=== PATIENT | female | born 1940 | race Caucasian/White ===

== ENCOUNTER 2019-08-08 09:52 | Emergency (ER) | payer MEDICARE, OTHER, SELFPAY ==
[2019-08-08 09:56] VITALS: BP 118/66; PULSE 96; RESP 18; TEMP 36.7; O2SAT 94; BMI 34.4
[2019-08-08 10:09] VITALS: O2SAT 98
[2019-08-08 10:10] LABS: Basophils % 0.2 %; Eosinophils # 0.1 10^3/uL (0.0-0.8); Eosinophils % 1.3 %; Hematocrit 36.2 % (37.0-47.0); Hemoglobin 10.8 g/dL (11.5-15.3); Lymphocytes # 1.6 10^3/uL (0.8-4.8); Lymphocytes % 16.7 %; Mean Corpuscular HGB Conc 29.8 g/dL (30.0-36.0); Mean Corpuscular Hemoglobin 27.1 pg (28.0-34.0); Mean Corpuscular Volume 90.7 fL (81-99); Mean Platelet Volume 11.7 fL (7.4-10.4); Monocytes # 0.8 10^3/uL (0.2-0.9); Monocytes % 8.4 %; Neutrophils % 73.1 %; Nucleated Red Blood Cells % 0 %; Platelet Count 207 10^3/cmm (130-400); Red Blood Count 3.99 10^6/uL (4.1-5.3); Red Cell Distribution Width 13.4 % (12.1-15.1); White Blood Count 9.6 10^3/uL (4.0-10.0)
--- NOTE | 2019-08-08 10:14 | ED_ITS ---
Entered by Francisca Tan, acting as scribe for Emilia Perera PA Aug 08, 2019 09:52 HPI - General Adult General: Chief complaint: General Medical Stated complaint: Abd pain Time Seen by Provider: 08/08/19 10:15 Source: patient and family Mode of arrival: ambulatory Limitations: no limitations History of Present Illness: HPI narrative: Patient is an 78-year-old female who presents to ED today along with family for complaints of vomiting since Tuesday. They were seen in urgent care today and apparently had a low blood pressure of 80s?90s/ over 40s-60s. Family states she also had some abdominal pain with palpation so they sent her to ED for further evaluation. Family states patient began vomiting on Tuesday and had about 2-3 episodes total throughout the day. Family states there was no vomiting on Tuesday but began again on Tuesday and again had 2-3 episodes. Family has been treating with Zofran. Vomit has been nonbloody. Patient reports some looser stools but not diarrhea-stools have been nonbloody, not black or tarry. Patient does not complain of abdominal pain on her own but does state it was mildly tender with palpation by the provider at urgent care. She has not been running fevers. Patient does not complain of lightheadedness, dizziness, presyncopal. She does complain of feeling tired and fatigued. Onset (ago): day(s) Relieving factors: other (zofran) Exacerbating factors: eating Associated symptoms: Reports nausea and vomiting; Deny chest pain, headache(s), rash, palpitations or syncope Review of Systems Const: Reports: change in appetite (decreased) and fatigue; Denies: fever, chills, body aches or change in weight Eyes: Denies: change in vision or blurry vision ENMT: Denies: throat pain, enlarged tonsils or painful swallowing Card: Reports: shortness of breath on exertion (chronic); Denies: chest pain, palpitations, irregular heart rhythm, edema, swelling of feet/ankles, lightheadedness, syncope, pre-syncope, shortness of breath when lying down or leg pain with exertion Resp: Denies: productive cough, coughing up blood or chest congestion GI: Reports: nausea and vomiting; Denies: abdominal pain (only with palpation; no pain at rest), vomiting blood, coffee grounds in vomit, difficulty swallowing, constipation, bloating, excessive passing of gas, painful bowel movements, change in stool character, b lood in stool, black tarry stool, mucus in stool, white/light colored stool or fatty stool : Denies: flank pain, difficulty urinating, painful urination, urinary frequency, urinary urgency or urinary hesitancy Musc: Denies: neck pain, back pain, extremity pain or joint pain Skin/Breast: Denies: rash or itching Neuro: Denies: headache, numbness in extremities, weakness in extremities, changes in sensation, lack of coordination, difficulty walking, frequent falls or dizziness PFSH ED PFSH: Statuses (acute, chronic, etc) shown below reflect problem list status as previously entered and may not be historically accurate Social History Smoking and tobacco status: never smoked Physical Exam Const: COMMON NORMALS: no apparent distress, oriented x3, no limitations, alert and well nourished HENMT: COMMON NORMALS: normocephalic and head/scalp atraumatic HEAD & SCALP: normocephalic and atraumatic Eye: COMMON NORMALS: PERRL and EOMs intact bilaterally PUPIL: Yes PERRL Neck/C-Spine: COMMON NORMALS: full ROM, no lymphadenopathy, supple and no meningeal signs Chest: COMMONS NORMALS: inspection of chest normal Resp: COMMON NORMALS: normal respiratory effort and clear to auscultation bilaterally AUSCULTATION: clear to auscultation bilaterally Cardio: COMMON NORMALS: regular rate and regular rhythm RATE: regular rate RHYTHM: regular rhythm GI: COMMON NORMALS: normal to inspection, nondistended, normoactive bowel sounds, soft to palpation, no hepatosplenomegaly and no masses PALPATION: Yes soft, Yes tender (mild tenderness to epigastrim and LLQ) and Yes no hepatosplenomegaly : COMMON NORMALS: Yes no CVA tenderness BLADDER/KIDNEY EXAM: Yes no CVA tenderness Back/Pelvis: COMMON NORMALS: no CVA tenderness and thoracic and lumbar spine normal to inspection Extremity: COMMON NORMALS: normal to inspection Neuro: COMMON NORMALS: oriented x3 SENSORIUM/ORIENTATION: Yes alert MENINGEAL SIGNS: Yes no meningeal signs Skin: COMMON NORMALS: no rashes or lesions noted GENERAL SKIN EXAM: no rashes or lesions noted Course Vital Signs: Vital signs: Vital Signs Temperature 98.0 F 08/08/19 09:56 Pulse Rate 72 08/08/19 12:27 Respiratory Rate 16 08/08/19 12:27 Blood Pressure 126/71 08/08/19 12:27 Pulse Oximetry 95 08/08/19 12:27 MDM - General Adult MDM Narrative: Medical decision making narrative: Patient clinically appears well. Her vitals have been stable throughout her stay. Blood pressure has been 110-120s/60-70s which is about normal for her. She is not tachycardic or febrile. Her labs are fairly unremarkable. Mildly elevated BUN/Cr of 25/1.6. She was given a liter of fluids here and will be encouraged to continue to push fluids at home. Recommend PCP follow-up in 48 hours for reevaluation. Return to ED precautions given. She has had no episodes of vomiting or diarrhea while here. Lab Data: Labs: Lab Results 08/08/19 08/08/19 08/08/19 Range/Units 10:04 10:04 10:20 WBC 9.6 (4.0-10.0) 10^3/ uL RBC 3.99 L (4.1-5.3) 10^6/u L Hgb 10.8 L (11.5-15.3) g/dL Hct 36.2 L (37.0-47.0) % MCV 90.7 (81-99) fL MCH 27.1 L (28.0-34.0) pg MCHC 29.8 L (30.0-36.0) g/dL RDW 13.4 (12.1-15.1) % Plt Count 207 (130-400) 10^3/c mm MPV 11.7 H (7.4-10.4) fL Neut % (Auto) 73.1 % Lymph % (Auto) 16.7 % [place] % (Auto) 8.4 % Eos % (Auto) 1.3 % Baso % (Auto) 0.2 % Neut # (Auto) 7.0 (1.8-7.7) 10^3/u L Lymph # (Auto) 1.6 (0.8-4.8) 10^3/u L [place] # (Auto) 0.8 (0.2-0.9) 10^3/u L Eos # (Auto) 0.1 (0.0-0.8) 10^3/u L Baso # (Auto) 0.0 (0.0-0.1) 10^3/u L Nucleated RBC % (a uto) 0 % Nucleated RBCs # 0.0 /100WBC Sodium 136 (136-145) mmol/L Potassium 4.2 (3.5-5.1) mmol/L Chloride 101 (98-107) mmol/L Carbon Dioxide 22 (22-29) mmol/L Anion Gap 17.2 (5-19) BUN 25 H (8-23) mg/dL Creatinine 1.6 H (0.5-0.9) mg/dL Glucose 103 (65-115) mg/dL Calcium 9.3 (8.5-10.5) mg/dL Total Bilirubin 0.2 (0.15-1.2) mg/dL AST 20 (0-32) U/L ALT 12 (0-33) U/L Alkaline Phosphata se 98 (35-105) IU/L Total Protein 7.8 (6.6-8.7) g/dL Albumin 3.8 (3.5-5.2) g/dL Globulin 4.0 (1.3-4.6) g/dL Lipase 54 (13-60) U/L Urine Color Yellow (Yellow) Urine Appearance Clear (CLEAR) Urine pH 5.0 (5-7) Ur Specific Gravit y 1.025 (1.005-1.030) Urine Protein Trace (Negative) Urine Glucose (UA) Norm (Normal) Urine Ketones Negative (Negative) Urine Occult Blood Neg (Negative) Urine Nitrate Negative (Negative) Urine Bilirubin 1+ H (NEGATIVE) Urine Urobilinogen 1 H (Negative) mg/dL Ur Leukocyte Kallie ase Negative (Negative) Urine RBC None (0-2) /hpf Urine WBC 0-4 H (0-5) /hpf Ur Squamous Epith Cells 0-4 H (0-5) Urine Bacteria 1+ H (NONE) Urine Mucus 2+ Influenza Type A A g (Negative) POC Influenza B Ag (Negative) 08/08/19 Range/Units 10:50 WBC (4.0-10.0) 10^3/ uL RBC (4.1-5.3) 10^6/u L Hgb (11.5-15.3) g/dL Hct (37.0-47.0) % MCV (81-99) fL MCH (28.0-34.0) pg MCHC (30.0-36.0) g/dL RDW (12.1-15.1) % Plt Count (130-400) 10^3/c mm MPV (7.4-10.4) fL Neut % (Auto) % Lymph % (Auto) % [place] % (Auto) % Eos % (Auto) % Baso % (Auto) % Neut # (Auto) (1.8-7.7) 10^3/u L Lymph # (Auto) (0.8-4.8) 10^3/u L [place] # (Auto) (0.2-0.9) 10^3/u L Eos # (Auto) (0.0-0.8) 10^3/u L Baso # (Auto) (0.0-0.1) 10^3/u L Nucleated RBC % (a uto) % Nucleated RBCs # /100WBC Sodium (136-145) mmol/L Potassium (3.5-5.1) mmol/L Chloride (98-107) mmol/L Carbon Dioxide (22-29) mmol/L Anion Gap (5-19) BUN (8-23) mg/dL Creatinine (0.5-0.9) mg/dL Glucose (65-115) mg/dL Calcium (8.5-10.5) mg/dL Total Bilirubin (0.15-1.2) mg/dL AST (0-32) U/L ALT (0-33) U/L Alkaline Phosphata se (35-105) IU/L Total Protein (6.6-8.7) g/dL Albumin (3.5-5.2) g/dL Globulin (1.3-4.6) g/dL Lipase (13-60) U/L Urine Color (Yellow) Urine Appearance (CLEAR) Urine pH (5-7) Ur Specific Gravit y (1.005-1.030) Urine Protein (Negative) Urine Glucose (UA) (Normal) Urine Ketones (Negative) Urine Occult Blood (Negative) Urine Nitrate (Negative) Urine Bilirubin (NEGATIVE) Urine Urobilinogen (Negative) mg/dL Ur Leukocyte Kallie ase (Negative) Urine RBC (0-2) /hpf Urine WBC (0-5) /hpf Ur Squamous Epith Cells (0-5) Urine Bacteria (NONE) Urine Mucus Influenza Type A A g Negative (Negative) POC Influenza B Ag Negative (Negative) Discharge Plan Discharge Patient Disposition: Home, Self-Care Clinical Impression: Nausea & vomiting Qualifiers: Vomiting type: unspecified Vomiting Intractability: non-intractable Qualified Code(s): R11.2 - Nausea with vomiting, unspecified Condition: Stable Prescriptions: New Zofran 4 mg tablet 4 mg PO Q6H PRN (Reason: nausea and vomiting) Qty: 14 RF: 0 Discharge Orders: Discharge Order (Routine); Ordered 08/08/19 Ordered By: Emilia Perera Referrals: Alba Dueñas MD [Primary Care Provider] - Discharge Diet: Advance as tolerated Discharge Activity: Increase activity as tolerated Patient Instructions: Dehydration - Adult, Acute Nausea and Vomiting (ED) Activity Restrictions/Additional Instructions: Please follow-up with Dr. Dueñas in 48 hours for continued symptoms. Return to the emergency department for repetitive episodes of vomiting or diarrhea, abdominal pain, fevers greater than 100.4, or any other concerns she may have. 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
[2019-08-08 10:23] LABS: Alanine Aminotransferase 12 U/L (0-33); Albumin Level 3.8 g/dL (3.5-5.2); Alkaline Phosphatase 98 IU/L (35-105); Anion Gap 17.2 (5-19); Aspartate Amino Transferase 20 U/L (0-32); Blood Urea Nitrogen 25 mg/dL (8-23); Calcium 9.3 mg/dL (8.5-10.5); Carbon Dioxide 22 mmol/L (22-29); Chloride 101 mmol/L (98-107); Glucose 103 mg/dL (65-115); Lipase 54 U/L (13-60); Potassium 4.2 mmol/L (3.5-5.1); Sodium 136 mmol/L (136-145); Total Bilirubin 0.2 mg/dL (0.15-1.2); Total Protein 7.8 g/dL (6.6-8.7)
[2019-08-08] MEDS: sodium chloride 0.9% 1,000 ML 999 ML IV (10:47)
[2019-08-08 10:49] LABS: Add Urine Microscopic? YES; Bilirubin Urine 1+ (NEGATIVE); Blood Urine Neg (Negative); Glucose Urine UA Norm (Normal); Ketones Urine Negative (Negative); Leukocyte Esterase Urine Negative (Negative); Nitrate Urine Negative (Negative); Protein Urine Trace (Negative); Specific Gravity, Urine 1.025 (1.005-1.030); Urine Appearance Clear (CLEAR); Urine Color Yellow (Yellow); Urobilinogen Urine 1 mg/dL (Negative)
[2019-08-08 10:55] LABS: Bacteria Urine 1+; Mucus Urine 2+; Squamous Epithelial Cell Urine 0-4 (0-5); WBC Urine 0-4 /hpf (0-5)
[2019-08-08 10:56] LABS: Add Urine Culture? No
[2019-08-08 11:16] LABS: Influenza A by IFA Negative (Negative); Influenza B by IFA Negative (Negative)
[2019-08-08 12:27] VITALS: BP 126/71; PULSE 72; RESP 16; O2SAT 95
== END 2019-08-08 12:28 | disposition home or self-care (01) ==
PROVIDERS: Emergency Provider Physician Assistant; Family Provider Family Medicine; PCP Family Medicine
DX: R11.2 Nausea with vomiting, unspecified (principal)
CPT/HCPCS: 36415; 80053; 81001; 83690; 85025; 87804; 96360; 99283; J7030

== ENCOUNTER → 2019-11-14 08:25 | Outpatient (BNVA) | payer MEDICARE, OTHER, SELFPAY | PROVIDERS: Family Provider Family Medicine; PCP Family Medicine; Visit Provider Specialist | DX: G30.9 Alzheimer's disease, unspecified (principal); F02.80 Dementia in other diseases classified elsewhere, unspecified severity, without behavioral disturbance, psychotic disturbance, mood disturbance, and anxiety | CPT/HCPCS: 99213 ==

== ENCOUNTER 2020-06-23 12:59 | Emergency (ER) | payer MEDICARE, OTHER, SELFPAY ==
[2020-06-23] VITALS (7 sets, daily range): BP systolic 95–126; BP diastolic 60–74; PULSE 85–99; RESP 16–18; TEMP 36.4; O2SAT 93–99; BMI 51.2
--- NOTE | 2020-06-23 14:13 | XR_ITS ---
WS: [id number] PORTABLE CHEST HISTORY: dyspnea COMPARISON: 03/07/2019 Hyperexpanded lungs with prior granulomatous disease. No pneumonia. No pleural effusion or pneumothor ax. Cardiac size: Mildly enlarged cardiac silhouette. Mediastinum/Aorta: Mild atherosclerosis aorta. No osseous abnormality seen. XR/XR chest 1V portable [id number] IMPRESSION: Prior granulomatous disease and mild cardiomegaly. No pneumonia.
[2020-06-23 16:38] LABS: Basophils % 0.4 %; Eosinophils % 0.1 %; Hematocrit 36.6 % (37.0-47.0); Hemoglobin 11.5 g/dL (11.5-15.3); Lymphocytes # 1.2 10^3/uL (0.8-4.8); Mean Corpuscular HGB Conc 31.4 g/dL (30.0-36.0); Mean Corpuscular Hemoglobin 27.2 pg (28.0-34.0); Mean Corpuscular Volume 86.5 fL (81-99); Monocytes % 8.9 %; Neutrophils # 8.56 10^3/uL (1.8-7.7); Nucleated Red Blood Cells % 0 %; Platelet Count 198 10^3/cmm (130-400); Red Blood Count 4.23 10^6/uL (4.1-5.3); Red Cell Distribution Width 14.2 % (12.1-15.1); White Blood Count 10.8 10^3/uL (4.0-10.0)
[2020-06-23 16:56] LABS: D Dimer 1.97 ug/mIFEU (0-0.59)
[2020-06-23 17:12] LABS: Alanine Aminotransferase 7 U/L (0-33); Alkaline Phosphatase 78 IU/L (35-105); Anion Gap 18.8 (5-19); Aspartate Amino Transferase 13 U/L (0-32); Blood Urea Nitrogen 19 mg/dL (8-23); C Reactive Protein 160.4 mg/L (0.0-4.9); Calcium 9.6 mg/dL (8.5-10.5); Carbon Dioxide 22 mmol/L (22-29); Chloride 96 mmol/L (98-107); Globulin 3.8 g/dL (1.3-4.6); Glucose 112 mg/dL (65-115); Osmolality Calculated 279 mOsm/kg (285-295); Potassium 3.8 mmol/L (3.5-5.1); Sodium 133 mmol/L (136-145); Total Bilirubin 0.2 mg/dL (0.15-1.2); Total Protein 7.8 g/dL (6.6-8.7)
[2020-06-23 17:13] LABS: Lactic Sepsis W/Reflex 1.3 mmol/L (0.5-2.2)
--- NOTE | 2020-06-23 17:41 | ED_ITS ---
Documented by User: Gino Moore DO 06/25/20 13:28 HPI - General Adult General: Chief complaint: General Medical Stated complaint: FEVER, COUGHING, SOB Time Seen by Provider: 06/23/20 16:13 History of Present Illness: HPI narrative: 79-year-old female presents emergency room complaining of cough and shortness of breath. She was tested last week with a rapid antigen test and then again today both at an outlying clinic both of which were reportedly negative however she continues to have symptoms. She has not had any fever sweats or chills cough is been minimally productive. Her daughter is in the room and gives most of her history she has some dementia and is not consistent with her history. She denies chest or abdominal pain dysuria urgency or frequency. Onset (ago): day(s) Location: chest Severity: mild Relieving factors: rest Associated symptoms: Reports confusion, cough, dyspnea, malaise and weakness; Deny chest pain, diaphoresis, decreased appetite, fevers/chills, headache(s), nausea, rash, palpitations, seizures, short of breath, syncope or vomiting Review of Systems Const: Reports: malaise; Denies: diaphoresis ENMT: Denies: throat pain, nasal discharge or nasal congestion Card: Denies: chest pain, palpitations or syncope Resp: Reports: dyspnea GI: Denies: nausea or vomiting : Denies: flank pain, difficulty voiding, dysuria, urinary frequency or urinary urgency Skin/Breast: Denies: rash or pruritus Neuro: Reports: confusion; Denies: headache(s) [facility] ED PFSH: Medical History CHF (congestive heart failure) Ischemic cardiomyopathy NEERAJ (obstructive sleep apnea) Sleep apnea Family History Father CAD (coronary artery disease) Myocardial infarction Mother CAD (coronary artery disease) Myocardial infarction Sister CAD (coronary artery disease) Myocardial infarction Brother CAD (coronary artery disease) Myocardial infarction Daughter Cancer COLON Social History Smoking and tobacco status: never smoked Marital status: / Physical Exam Const: COMMON NORMALS: no acute distress GENERAL APPEARANCE: cooperative and comfortable ORIENTATION/CONSCIOUSNESS: Yes awake, Yes oriented to person, Yes oriented to place and Yes oriented to time HENMT: COMMON NORMALS: normocephalic and atraumatic HEAD & SCALP: normocephalic and atraumatic Neck/C-Spine: COMMON NORMALS: no JVD Resp: COMMON NORMALS: normal respiratory effort, No retractions, No use of accessory muscles and clear to auscultation bilaterally AUSCULTATION: clear to auscultation bilaterally Cardio: COMMON NORMALS: no JVD, regular rate, regular rhythm and No murmurs present (Cardio) RATE: regular rate RHYTHM: regular rhythm GI: COMMON NORMALS: Soft to palpation and No hepatosplenomegaly present AUSCULTATION: Yes normoactive bowel sounds PALPATION: Yes Soft to palpation, No Tenderness to palpation present (GI), No Guarding due to palpation present (GI) and Yes No hepatosplenomegaly present Extremity: COMMON NORMALS: normal to inspection, capillary refill normal, no clubbing, cyanosis or edema, no calf tenderness and no pedal edema Neuro: SENSORIUM/ORIENTATION: Yes oriented to person, Yes oriented to place and Yes oriented to time Skin: COMMON NORMALS: no rashes or lesions noted GENERAL SKIN EXAM: no rashes or lesions noted Course Vital Signs: Vital signs: Vital Signs Temperature 97.6 F 06/23/20 13:15 Pulse Rate 99 06/23/20 20:44 Respiratory Rate 18 06/23/20 20:44 Blood Pressure 115/60 06/23/20 20:44 Pulse Oximetry 99 06/23/20 20:44 MDM - General Adult MDM Narrative: Medical decision making narrative: Care turned over to Dr. Leos at change of shift see his notes for final diagnosis and disposition Lab Data: Attestation: I reviewed the patient's lab results. Labs: Lab Results 06/23/20 06/23/20 06/23/20 Range/Units 16:21 16:21 16:21 WBC 10.8 H (4.0-10.0) 10^3/ uL RBC 4.23 (4.1-5.3) 10^6/u L Hgb 11.5 (11.5-15.3) g/dL Hct 36.6 L (37.0-47.0) % MCV 86.5 (81-99) fL MCH 27.2 L (28.0-34.0) pg MCHC 31.4 (30.0-36.0) g/dL RDW 14.2 (12.1-15.1) % Plt Count 198 (130-400) 10^3/c mm MPV 11.0 H (7.4-10.4) fL Neut % (Auto) 79.0 % Lymph % (Auto) 11.0 % Patrick % (Auto) 8.9 % Eos % (Auto) 0.1 % Baso % (Auto) 0.4 % Neut # (Auto) 8.56 H (1.8-7.7) 10^3/u L Lymph # (Auto) 1.2 (0.8-4.8) 10^3/u L Patrick # (Auto) 1.0 H (0.2-0.9) 10^3/u L Eos # (Auto) 0.0 (0.0-0.8) 10^3/u L Baso # (Auto) 0.0 (0.0-0.1) 10^3/u L Nucleated RBC % (a uto) 0 % Nucleated RBCs # 0.0 /100WBC D-Dimer (0-0.59) ug/mIFE U Sodium 133 L (136-145) mmol/L Potassium 3.8 (3.5-5.1) mmol/L Chloride 96 L (98-107) mmol/L Carbon Dioxide 22 (22-29) mmol/L Anion Gap 18.8 (5-19) BUN 19 (8-23) mg/dL Creatinine 1.9 H (0.5-0.9) mg/dL GFR Calculation Not Reportable Glucose 112 (65-115) mg/dL Calculated Osmolal ity 279 L (285-295) mOsm/k g Lactic Acid 1.3 (0.5-2.2) mmol/L Calcium 9.6 (8.5-10.5) mg/dL Total Bilirubin 0.2 (0.15-1.2) mg/dL AST 13 (0-32) U/L ALT 7 (0-33) U/L Alkaline Phosphata se 78 (35-105) IU/L C-Reactive Protein 160.4 H (0.0-4.9) mg/L Total Protein 7.8 (6.6-8.7) g/dL Albumin 4.0 (3.5-5.2) g/dL Globulin 3.8 (1.3-4.6) g/dL Urine Color (Yellow) Urine Appearance (CLEAR) Urine pH (5-7) Ur Specific Gravit y (1.005-1.030) Urine Protein (Negative) Urine Glucose (UA) (Normal) Urine Ketones (Negative) Urine Blood (Negative) Urine Nitrate (Negative) Urine Bilirubin (Negative) Urine Urobilinogen (Negative) mg/dL Ur Leukocyte Kallie ase (Negative) Urine RBC (0-2) /hpf Urine WBC (0-5) /hpf Ur Squamous Epith Cells (0-5) /hpf Amorphous Sediment /hpf Urine Bacteria (NONE) /hpf Hyaline Casts /lpf Fine Granular Cast s /lpf Nasal/Oral COVID-1 9 PCR 06/23/20 06/23/20 06/23/20 Range/Units 16:21 17:48 18:25 WBC (4.0-10.0) 10^3/ uL RBC (4.1-5.3) 10^6/u L Hgb (11.5-15.3) g/dL Hct (37.0-47.0) % MCV (81-99) fL MCH (28.0-34.0) pg MCHC (30.0-36.0) g/dL RDW (12.1-15.1) % Plt Count (130-400) 10^3/c mm MPV (7.4-10.4) fL Neut % (Auto) % Lymph % (Auto) % Patrick % (Auto) % Eos % (Auto) % Baso % (Auto) % Neut # (Auto) (1.8-7.7) 10^3/u L Lymph # (Auto) (0.8-4.8) 10^3/u L Patrick # (Auto) (0.2-0.9) 10^3/u L Eos # (Auto) (0.0-0.8) 10^3/u L Baso # (Auto) (0.0-0.1) 10^3/u L Nucleated RBC % (a uto) % Nucleated RBCs # /100WBC D-Dimer 1.97 H (0-0.59) ug/mIFE U Sodium (136-145) mmol/L Potassium (3.5-5.1) mmol/L Chloride (98-107) mmol/L Carbon Dioxide (22-29) mmol/L Anion Gap (5-19) BUN (8-23) mg/dL Creatinine (0.5-0.9) mg/dL GFR Calculation Glucose (65-115) mg/dL Calculated Osmolal ity (285-295) mOsm/k g Lactic Acid (0.5-2.2) mmol/L Calcium (8.5-10.5) mg/dL Total Bilirubin (0.15-1.2) mg/dL AST (0-32) U/L ALT (0-33) U/L Alkaline Phosphata se (35-105) IU/L C-Reactive Protein (0.0-4.9) mg/L Total Protein (6.6-8.7) g/dL Albumin (3.5-5.2) g/dL Globulin (1.3-4.6) g/dL Urine Color Yellow (Yellow) Urine Appearance Hazy A (CLEAR) Urine pH 5 (5-7) Ur Specific Gravit y 1.020 (1.005-1.030) Urine Protein Trace (Negative) Urine Glucose (UA) Norm (Normal) Urine Ketones 1+ H (Negative) Urine Blood Neg (Negative) Urine Nitrate Negative (Negative) Urine Bilirubin 1+ H (Negative) Urine Urobilinogen 1 H (Negative) mg/dL Ur Leukocyte Kallie ase Negative (Negative) Urine RBC 0-4 H (0-2) /hpf Urine WBC 0-4 H (0-5) /hpf Ur Squamous Epith Cells 5-10 H (0-5) /hpf Amorphous Sediment 1+ /hpf Urine Bacteria Trace (NONE) /hpf Hyaline Casts 5-10 H /lpf Fine Granular Cast s 0-4 H /lpf Nasal/Oral COVID-1 9 PCR Not detected Discharge Plan Discharge Patient Disposition: Home Clinical Impression: Pneumonia Qualifiers: Pneumonia type: due to unspecified organism Laterality: right Lung location: middle lobe of lung Qualified Code(s): J18.9 - Pneumonia, unspecified organism Condition: Stable Prescriptions: New doxycycline hyclate 100 mg capsule 100 mg PO BID 10 Days Qty: 20 RF: 0 No Action albuterol sulfate [ProAir HFA] 90 mcg/actuation HFA aerosol inhaler 2 puff INHALATION Q6H PRNRF: 0 nitroglycerin [Nitrostat] 0.4 mg tablet, sublingual 0.4 mg SUBLINGUAL Q5M PRNRF: 0 timolol 0.5 % drops 1 drop ophthalmic (eye) DAILY RF: 0 Alphagan P 0.1 % drops 1 drop ophthalmic (eye) Q8H RF: 0 ketotifen fumarate [Zaditor] 0.025 % (0.035 %) drops 1 drop ophthalmic (eye) BID RF: 0 levothyroxine 50 mcg tablet 50 mcg PO DAILY RF: 0 aspirin 325 mg tablet 81 mg PO DAILY RF: 0 furosemide [Lasix] 20 mg tablet 10 mg PO BID RF: 0 pantoprazole [Protonix] 20 mg tablet,delayed release (DR/EC) 20 mg PO DAILY RF: 0 omeprazole 20 mg tablet,delayed release (DR/EC) 20 mg PO DAILY RF: 0 lisinopril 5 mg tablet 5 mg PO DAILY 90 Days Qty: 90 RF: 3 isosorbide mononitrate 60 mg tablet extended release 24 hr 60 mg PO DAILY 90 Days Qty: 90 RF: 3 donepezil [Aricept] 10 mg tablet 10 mg PO DAILY Qty: 90 RF: 3 venlafaxine [Effexor XR] 37.5 mg capsule,extended release 24hr 37.5 mg PO DAILY Qty: 90 RF: 3 memantine [Namenda] 10 mg tablet 10 mg PO BID 7 Days Qty: 14 RF: 0 carvedilol 6.25 mg tablet 6.25 mg PO BID Qty: 180 RF: 3 Zofran 4 mg tablet 4 mg PO Q6H PRN (Reason: nausea and vomiting) Qty: 14 RF: 0 Discharge Orders: Discharge ED (Routine); Ordered 06/23/20 Ordered By: Mohsen Leos Referrals: Alba Dueñas MD [Primary Care Provider] - 1-3 days Discharge Diet: Advance as tolerated Discharge Activity: Resume usual activity Patient Instructions: Pneumonia (ED) Coding Level of Care Code ED Biomedical Specialist for Chg Fwd Exam Comprehensive Documented by User: Mohsen Leos MD 06/23/20 19:54 HPI - General Adult General: Chief complaint: General Medical Stated complaint: FEVER, COUGHING, SOB Time Seen by Provider: 06/23/20 16:13 PFSH ED PFSH: Medical History CHF (congestive heart failure) Ischemic cardiomyopathy NEERAJ (obstructive sleep apnea) Sleep apnea Family History Father CAD (coronary artery disease) Myocardial infarction Mother CAD (coronary artery disease) Myocardial infarction Sister CAD (coronary artery disease) Myocardial infarction Brother CAD (coronary artery disease) Myocardial infarction Daughter Cancer COLON Social History Smoking and tobacco status: never smoked Marital status: / Course Vital Signs: Vital signs: Vital Signs Temperature 97.6 F 06/23/20 13:15 Pulse Rate 99 06/23/20 20:44 Respiratory Rate 18 06/23/20 20:44 Blood Pressure 115/60 06/23/20 20:44 Pulse Oximetry 99 06/23/20 20:44 MDM - General Adult MDM Narrative: Medical decision making narrative: Danyelle presents with a cough and slight dyspnea. CT showed a mild right middle lobe pneumonia. Patient's not requiring oxygen and her blood work here is normal. I feel she is stable for discharge. We will place her on doxycycline. She is to monitor her oxygen at home with a pulse ox return if less than 92. She is return if she has any worsening symptoms. She understands and agrees to this plan. Lab Data: Labs: Lab Results 06/23/20 06/23/20 06/23/20 Range/Units 16:21 16:21 16:21 WBC 10.8 H (4.0-10.0) 10^3/ uL RBC 4.23 (4.1-5.3) 10^6/u L Hgb 11.5 (11.5-15.3) g/dL Hct 36.6 L (37.0-47.0) % MCV 86.5 (81-99) fL MCH 27.2 L (28.0-34.0) pg MCHC 31.4 (30.0-36.0) g/dL RDW 14.2 (12.1-15.1) % Plt Count 198 (130-400) 10^3/c mm MPV 11.0 H (7.4-10.4) fL Neut % (Auto) 79.0 % Lymph % (Auto) 11.0 % Patrick % (Auto) 8.9 % Eos % (Auto) 0.1 % Baso % (Auto) 0.4 % Neut # (Auto) 8.56 H (1.8-7.7) 10^3/u L Lymph # (Auto) 1.2 (0.8-4.8) 10^3/u L Patrick # (Auto) 1.0 H (0.2-0.9) 10^3/u L Eos # (Auto) 0.0 (0.0-0.8) 10^3/u L Baso # (Auto) 0.0 (0.0-0.1) 10^3/u L Nucleated RBC % (a uto) 0 % Nucleated RBCs # 0.0 /100WBC D-Dimer (0-0.59) ug/mIFE U Sodium 133 L (136-145) mmol/L Potassium 3.8 (3.5-5.1) mmol/L Chloride 96 L (98-107) mmol/L Carbon Dioxide 22 (22-29) mmol/L Anion Gap 18.8 (5-19) BUN 19 (8-23) mg/dL Creatinine 1.9 H (0.5-0.9) mg/dL GFR Calculation Not Reportable Glucose 112 (65-115) mg/dL Calculated Osmolal ity 279 L (285-295) mOsm/k g Lactic Acid 1.3 (0.5-2.2) mmol/L Calcium 9.6 (8.5-10.5) mg/dL Total Bilirubin 0.2 (0.15-1.2) mg/dL AST 13 (0-32) U/L ALT 7 (0-33) U/L Alkaline Phosphata se 78 (35-105) IU/L C-Reactive Protein 160.4 H (0.0-4.9) mg/L Total Protein 7.8 (6.6-8.7) g/dL Albumin 4.0 (3.5-5.2) g/dL Globulin 3.8 (1.3-4.6) g/dL Urine Color (Yellow) Urine Appearance (CLEAR) Urine pH (5-7) Ur Specific Gravit y (1.005-1.030) Urine Protein (Negative) Urine Glucose (UA) (Normal) Urine Ketones (Negative) Urine Blood (Negative) Urine Nitrate (Negative) Urine Bilirubin (Negative) Urine Urobilinogen (Negative) mg/dL Ur Leukocyte Kallie ase (Negative) Urine RBC (0-2) /hpf Urine WBC (0-5) /hpf Ur Squamous Epith Cells (0-5) /hpf Amorphous Sediment /hpf Urine Bacteria (NONE) /hpf Hyaline Casts /lpf Fine Granular Cast s /lpf Nasal/Oral COVID-1 9 PCR 06/23/20 06/23/20 06/23/20 Range/Units 16:21 17:48 18:25 WBC (4.0-10.0) 10^3/ uL RBC (4.1-5.3) 10^6/u L Hgb (11.5-15.3) g/dL Hct (37.0-47.0) % MCV (81-99) fL MCH (28.0-34.0) pg MCHC (30.0-36.0) g/dL RDW (12.1-15.1) % Plt Count (130-400) 10^3/c mm MPV (7.4-10.4) fL Neut % (Auto) % Lymph % (Auto) % Patrick % (Auto) % Eos % (Auto) % Baso % (Auto) % Neut # (Auto) (1.8-7.7) 10^3/u L Lymph # (Auto) (0.8-4.8) 10^3/u L Patrick # (Auto) (0.2-0.9) 10^3/u L Eos # (Auto) (0.0-0.8) 10^3/u L Baso # (Auto) (0.0-0.1) 10^3/u L Nucleated RBC % (a uto) % Nucleated RBCs # /100WBC D-Dimer 1.97 H (0-0.59) ug/mIFE U Sodium (136-145) mmol/L Potassium (3.5-5.1) mmol/L Chloride (98-107) mmol/L Carbon Dioxide (22-29) mmol/L Anion Gap (5-19) BUN (8-23) mg/dL Creatinine (0.5-0.9) mg/dL GFR Calculation Glucose (65-115) mg/dL Calculated Osmolal ity (285-295) mOsm/k g Lactic Acid (0.5-2.2) mmol/L Calcium (8.5-10.5) mg/dL Total Bilirubin (0.15-1.2) mg/dL AST (0-32) U/L ALT (0-33) U/L Alkaline Phosphata se (35-105) IU/L C-Reactive Protein (0.0-4.9) mg/L Total Protein (6.6-8.7) g/dL Albumin (3.5-5.2) g/dL Globulin (1.3-4.6) g/dL Urine Color Yellow (Yellow) Urine Appearance Hazy A (CLEAR) Urine pH 5 (5-7) Ur Specific Gravit y 1.020 (1.005-1.030) Urine Protein Trace (Negative) Urine Glucose (UA) Norm (Normal) Urine Ketones 1+ H (Negative) Urine Blood Neg (Negative) Urine Nitrate Negative (Negative) Urine Bilirubin 1+ H (Negative) Urine Urobilinogen 1 H (Negative) mg/dL Ur Leukocyte Kallie ase Negative (Negative) Urine RBC 0-4 H (0-2) /hpf Urine WBC 0-4 H (0-5) /hpf Ur Squamous Epith Cells 5-10 H (0-5) /hpf Amorphous Sediment 1+ /hpf Urine Bacteria Trace (NONE) /hpf Hyaline Casts 5-10 H /lpf Fine Granular Cast s 0-4 H /lpf Nasal/Oral COVID-1 9 PCR Not detected Imaging Data^: CT Chest: Attestation: I personally reviewed and interpreted this imaging study as follows: Radiologist's impression: [address] [address] [address] Scan Report Signed Patient: Danyelle Hanna Unit #: [id number] : 1940 Age/Sex: 79 / F ADM Date: 06/23/20 Loc: ER Room/Bed: Attending Dr: Ordering Provider/Ordering MD: Gino Moore DO Date of Service: 06/23/20 Procedure(s): CT angio chest PE protcl [id number] Accession Number(s): [id number] Report Number: [id number] PROCEDURE INFORMATION: Exam: CT Angiography Chest With Contrast Exam date and time: 06/23/2020 6:53 PM Age: 79 years old Clinical indication: Cough and shortness of breath; Additional info: Dyspnea TECHNIQUE: Imaging protocol: Computed tomographic angiography of the chest with intravenous contrast. 3D rendering (Not supervised by radiologist): MIP and/or 3D reconstructed images were created by the technologist. Radiation optimization: All CT scans at this facility use at least one of these dose optimization techniques: automated exposure control; mA and/or kV adjustment per patient size (includes targeted exams where dose is matched to clinical indication); or iterative reconstruction. Contrast material: VISI 320; Contrast volume: 61 ml; Contrast route: INTRAVENOUS (IV); COMPARISON: CTA Chest-Pulmonary Emb [id number] 01/03/2015 8:36 AM RADIATION DOSE METRICS: Total DLP (mGy-cm): 584.16 FINDINGS: Pulmonary arteries: Pulmonary arteries are well opacified. Pulmonary arteries are normal in caliber. No filling defects are demonstrated. No evidence of pulmonary embolism. Aorta: Mild atherosclerosis of the thoracic aorta. No aortic aneurysm or dissection. Lungs: Airspace infiltrate noted in the right middle lobe, suspicious for nonspecific pneumonia. Pleural space: No pleural effusion or pneumothorax noted. Heart: Mild cardiomegaly is noted. Minimal pericardial fluid. No significant pericardial effusion. Lymph nodes: Partially calcified mediastinal and bilateral hilar lymph nodes, consistent with old granulomatous disease. Spleen: Calcified granulomas are noted in the spleen. Bones/joints: Degenerative changes of the thoracic spine are noted. No acute osseous abnormality. Soft tissues: The soft tissues appear unremarkable. CT/CT angio chest PE protcl [id number] IMPRESSION: 1. No evidence of pulmonary embolism. 2. No evidence of aortic dissection. 3. Airspace infiltrate noted in the right middle lobe, suspicious for nonspecific pneumonia. This is new when compared to the previous study. 4. Mild cardiomegaly is noted. Discharge Plan Discharge Patient Disposition: Home Clinical Impression: Pneumonia Qualifiers: Pneumonia type: due to unspecified organism Laterality: right Lung location: middle lobe of lung Qualified Code(s): J18.9 - Pneumonia, unspecified organism Condition: Stable Prescriptions: New doxycycline hyclate 100 mg capsule 100 mg PO BID 10 Days Qty: 20 RF: 0 No Action albuterol sulfate [ProAir HFA] 90 mcg/actuation HFA aerosol inhaler 2 puff INHALATION Q6H PRNRF: 0 nitroglycerin [Nitrostat] 0.4 mg tablet, sublingual 0.4 mg SUBLINGUAL Q5M PRNRF: 0 timolol 0.5 % drops 1 drop ophthalmic (eye) DAILY RF: 0 Alphagan P 0.1 % drops 1 drop ophthalmic (eye) Q8H RF: 0 ketotifen fumarate [Zaditor] 0.025 % (0.035 %) drops 1 drop ophthalmic (eye) BID RF: 0 levothyroxine 50 mcg tablet 50 mcg PO DAILY RF: 0 aspirin 325 mg tablet 81 mg PO DAILY RF: 0 furosemide [Lasix] 20 mg tablet 10 mg PO BID RF: 0 pantoprazole [Protonix] 20 mg tablet,delayed release (DR/EC) 20 mg PO DAILY RF: 0 omeprazole 20 mg tablet,delayed release (DR/EC) 20 mg PO DAILY RF: 0 lisinopril 5 mg tablet 5 mg PO DAILY 90 Days Qty: 90 RF: 3 isosorbide mononitrate 60 mg tablet extended release 24 hr 60 mg PO DAILY 90 Days Qty: 90 RF: 3 donepezil [Aricept] 10 mg tablet 10 mg PO DAILY Qty: 90 RF: 3 venlafaxine [Effexor XR] 37.5 mg capsule,extended release 24hr 37.5 mg PO DAILY Qty: 90 RF: 3 memantine [Namenda] 10 mg tablet 10 mg PO BID 7 Days Qty: 14 RF: 0 carvedilol 6.25 mg tablet 6.25 mg PO BID Qty: 180 RF: 3 Zofran 4 mg tablet 4 mg PO Q6H PRN (Reason: nausea and vomiting) Qty: 14 RF: 0 Discharge Orders: Discharge ED (Routine); Ordered 06/23/20 Ordered By: Mohsen Leos Referrals: Alba Dueñas MD [Primary Care Provider] - 1-3 days Discharge Diet: Advance as tolerated Discharge Activity: Resume usual activity Patient Instructions: Pneumonia (ED) Coding Level of Care Code ED Biomedical Specialist for Chg Fwd Exam Comprehensive
--- NOTE | 2020-06-23 17:53 | CTR_ITS ---
PROCEDURE INFORMATION: Exam: CT Angiography Chest With Contrast Exam date and time: 06/23/2020 6:53 PM Age: 79 years old Clinical indication: Cough and shortness of breath; Additional info: Dyspnea TECHNIQUE: Imaging protocol: Computed tomographic angiography of the chest with intravenous contrast. 3D rendering (Not supervised by radiologist): MIP and/or 3D reconstructed images were created by the technologist. Radiation optimization: All CT scans at this facility use at least one of these dose optimization techniques: automated exposure control; mA and/or kV adjustment per patient size (includes targeted exams where dose is matched to clinical indication); or iterative reconstruction. Contrast material: VISI 320; Contrast volume: 61 ml; Contrast route: INTRAVENOUS (IV); COMPARISON: CTA Chest-Pulmonary Emb [id number] 01/03/2015 8:36 AM RADIATION DOSE METRICS: Total DLP (mGy-cm): 584.16 FINDINGS: Pulmonary arteries: Pulmonary arteries are well opacified. Pulmonary arteries are normal in caliber. No filling defects are demonstrated. No evidence of pulmonary embolism. Aorta: Mild atherosclerosis of the thoracic aorta. No aortic aneurysm or dissection. Lungs: Airspace infiltrate noted in the right middle lobe, suspicious for nonspecific pneumonia. Pleural space: No pleural effusion or pneumothorax noted. Heart: Mild cardiomegaly is noted. Minimal pericardial fluid. No significant pericardial effusion. Lymph nodes: Partially calcified mediastinal and bilateral hilar lymph nodes, consistent with old granulomatous disease. Spleen: Calcified granulomas are noted in the spleen. Bones/joints: Degenerative changes of the thoracic spine are noted. No acute osseous abnormality. Soft tissues: The soft tissues appear unremarkable. CT/CT angio chest PE protcl [id number] IMPRESSION: 1. No evidence of pulmonary embolism. 2. No evidence of aortic dissection. 3. Airspace infiltrate noted in the right middle lobe, suspicious for nonspecific pneumonia. This is new when compared to the previous study. 4. Mild cardiomegaly is noted. Radiation Dose CTDIVOL = (mGy): DLP = 584.16 (mGy-cm)
[2020-06-23] MEDS: iodixanol 320 mg/mL 100mL Btl IV (18:55)
[2020-06-23] MEDS: doxycycline 100 mg Tablet PO (19:47)
[2020-06-23] MEDS: sodium chloride 0.9% 1,000 ML 999 ML IV (19:47)
[2020-06-23 20:24] LABS: Add Urine Microscopic? YES; Bilirubin Urine 1+ (Negative); Blood Urine Neg (Negative); Glucose Urine UA Norm (Normal); Ketones Urine 1+ (Negative); Leukocyte Esterase Urine Negative (Negative); Nitrate Urine Negative (Negative); Protein Urine Trace (Negative); Urine Appearance Hazy (CLEAR); Urine Color Yellow (Yellow); Urobilinogen Urine 1 mg/dL (Negative); pH Urine 5 (5-7)
[2020-06-23 20:33] LABS: Fine Granular Casts Urine 0-4 /lpf; RBC Urine 0-4 /hpf (0-2)
[2020-06-23 20:34] LABS: Add Urine Culture? No; Amorphous Sediment Urine 1+ /hpf; Bacteria Urine TRACE /hpf; WBC Urine 0-4 /hpf (0-5)
[2020-06-24 17:35] LABS: Coronavirus Test Green County Not Detected
== END 2020-06-23 20:47 | disposition home or self-care (01) ==
PROVIDERS: Family Medicine; Emergency Provider Emergency Medicine; PCP Family Medicine
DX: J18.9 Pneumonia, unspecified organism (principal); Z79.82 Long term (current) use of aspirin; I50.9 Heart failure, unspecified
CPT/HCPCS: 12345; 71045; 71275; 80053; 81001; 83605; 85025; 85378; 86140; 87635; 96360; 99283; J7030; Q9967

== ENCOUNTER 2020-12-07 22:51 | Inpatient (IN) | payer MEDICARE, OTHER, SELFPAY ==
[2020-12-07 22:51] VITALS: BP 122/68; PULSE 110; RESP 19; TEMP 38.7; O2SAT 96
--- NOTE | 2020-12-07 23:17 | PM.HP ---
Providers/Chief Complaint Admitting Physician: Simona Wood MD Primary Care Provider: Alba Dueñas MD Chief Complaint: CHF, PHEUMONIA History of Present Illness Danyelle Hanna is a 80 year old female transferred from [facility] for diagnosis of pneumonia per outside provider. She herself has dementia. She lives with her son. Her daughter is here providing information. She has not been feeling well for a couple of days with increased cough compared to baseline. She is also had some low-grade fevers. Daughter had a pulse ox at home and noted that oxygen saturations were low. Cough has been productive of a clearish white sputum sometimes but usually it is nonproductive. On Tuesday she started having some vomiting which continued into Tuesday. Fever was reported to be 100.4. Patient's daughter did pull of big tick off of her this weekend. A granddaughter has also had some low-grade fevers. No known people with Covid currently. Patient herself has not had Covid nor did she get a vaccine. There is no reports of changes in bowel or bladder function. Patient has been more irritable or snappy than usual which is usually an indication that something is going on. Work-up at [facility] revealed according to the doctor pneumonia. White count was normal. BNP was elevated at 5476. Lactic acid was normal. Request was made for transfer to our facility for further care. On arrival here patient continues to have a nonproductive cough. History is obtained from her daughter. The patient has no acute complaints at the moment. She was seen by Dr. Hall who she is following now for cardiology earlier this month. Had some dyspnea and chest pain then. Sublingual nitroglycerin was added as needed but no other medication changes. Review of Systems Const: Reports: fever(s), chills, change in appetite and night sweats (For quite some time most notable in the desulfurizer machine hours); Denies: change in weight Eyes: Denies: change in vision ENMT: Denies: throat pain or nasal congestion Card: Reports: chest pain; Denies: palpitations, edema or orthopnea Resp: Reports: dyspnea, non-productive cough and other (No longer using her CPAP, refuses) GI: Reports: nausea and vomiting; Denies: abdominal pain, diarrhea or constipation : Denies: difficulty voiding or hematuria Musc: Denies: joint swelling or joint redness Skin/Breast: Denies: rash, pruritus or sores Neuro: Denies: headache(s) or weakness in extremities Psych: Reports: irritability and memory loss Almas/Lymph: Denies: easy bruising or easy bleeding Medications/Allergies Home Medications Medication Instructions Recorded Confirmed Last Taken Type ondansetron HCl [Zofran] 4 mg PO Q6H PRN #14 tab 08/08/19 11/26/20 Unknown Rx lisinopril 5 mg tablet 5 mg PO DAILY 90 Days #90 tab 09/18/19 11/26/20 Unknown Rx albuterol sulfate 90 mcg/actuation 2 puff INHALATION Q6H PRN 11/14/19 11/26/20 Unknown History aerosol inhaler brimonidine 0.1 % eye drops 1 drop OPHTHALMIC (EYE) Q8H 11/14/19 11/26/20 Unknown History furosemide 20 mg tablet 10 mg PO BID 11/14/19 11/26/20 Unknown History ketotifen fumarate 0.025 % (0.035 1 drop OPHTHALMIC (EYE) BID 11/14/19 11/26/20 Unknown History %) eye drops levothyroxine 50 mcg tablet 50 mcg PO DAILY 11/14/19 11/26/20 Unknown History omeprazole 20 mg tablet,delayed 20 mg PO DAILY 11/14/19 11/26/20 Unknown History release pantoprazole 20 mg tablet,delayed 20 mg PO DAILY 11/14/19 11/26/20 Unknown History release timolol 0.5 % eye drops 1 drop OPHTHALMIC (EYE) DAILY 11/14/19 11/26/20 Unknown History donepezil 10 mg tablet 10 mg PO DAILY #90 tab 02/12/20 11/26/20 Unknown Rx venlafaxine 37.5 mg 37.5 mg PO DAILY #90 cap 02/12/20 11/26/20 Unknown Rx capsule,extended release 24 hr memantine 10 mg tablet 10 mg PO BID 7 Days #14 tab 02/13/20 11/26/20 Unknown Rx aspirin 325 mg tablet 81 mg PO DAILY tab 05/26/20 11/26/20 Unknown History carvedilol 6.25 mg tablet 6.25 mg PO BID #180 tab 06/16/20 11/26/20 Unknown Rx nitroglycerin 0.4 mg sublingual 0.4 mg SUBLINGUAL Q5M PRN #25 tab 11/26/20 11/26/20 Unknown Rx tablet acetaminophen 1,000 mg PO DAILY 12/08/20 12/08/20 Unknown History donepezil [Aricept] 20 mg PO DAILY 12/08/20 12/08/20 Unknown History hydrocodone-acetaminophen 1 tab PO DAILY PRN 12/08/20 12/08/20 Unknown History isosorbide mononitrate 60 mg PO BID 12/08/20 12/08/20 Unknown History theophylline 400 mg PO DAILY 12/08/20 12/08/20 Unknown History venlafaxine [Effexor XR] 150 mg PO DAILY 12/08/20 12/08/20 Unknown History Allergies Allergy/AdvReac Type Severity Reaction Status Date / Time azithromycin Allergy Unknown Verified 11/26/20 15:06 cephalexin [From Keflex] Allergy Unknown Verified 11/26/20 15:06 Penicillins Allergy Unknown Verified 11/26/20 15:06 Additional Medication Information I personally reviewed medication list at [facility] and here PFSH Acute PFSH: Medical History (Updated 12/08/20 @ 09:16 by Simona Wood MD) Alzheimer disease 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 CHF (congestive heart failure) CKD (chronic kidney disease) DDD (degenerative disc disease) GERD (gastroesophageal reflux disease) History of skin cancer treated with excision Hypertension Hypothyroidism Nonischemic cardiomyopathy NEERAJ (obstructive sleep apnea) Osteoporosis Surgical History (Updated 12/07/20 @ 23:28 by Simona Wood MD) H/O carpal tunnel repair H/O cataract extraction H/O: hysterectomy Family History Father CAD (coronary artery disease) Myocardial infarction Mother CAD (coronary artery disease) Myocardial infarction Sister CAD (coronary artery disease) Myocardial infarction Brother CAD (coronary artery disease) Myocardial infarction Daughter Cancer COLON Social History (Updated 12/07/20 @ 23:28 by Simona Wood MD) Smoking and tobacco status: never smoked Alcohol intake: never Substance/Drug Use: never Household members: family Marital status: / Physical Exam Narrative: EXAM NARRATIVE: Constitutional: Oriented to the fact that she is not at home as well as to person, pleasant but tired HEENT: Normocephalic, extraocular movements are intact, moist mucous membranes Neck: Supple Respiratory: Upper airway noise while sleeping that clears with awakening, scattered wheezes throughout lung beasley Cardiovascular: Regular rhythm Abdomen: Soft, nontender, nondistended Extremities: No pitting edema Skin: Dry skin, a few bruises and minor abrasions but no rashes Neuro: Face symmetric, speech clear, handgrip equal, no abnormal movements Psych: Calm currently Data Other data: Prior or outside records reviewed: Review records from [facility] and in [facility] Influenza AMB negative Covid antigen negative Chest x-ray interpretation prominent bronchovascular markings and increased interstitium which has increased from prior exam. This could represent underlying chronic vascular congestion or pulmonary fibrosis. Correlation is needed. There is no lobar consolidation to support superimposed active pneumonia. White blood count 7000, H&H 11/37, platelet count 187, neutrophils 72%, lymphocytes 17% Sodium 133, potassium 4.4, chloride 100, CO2 24, BUN/creatinine 15/1.3, glucose 98, calcium 9.3, albumin 3.5, total bilirubin 0.3, alkaline phosphatase 74, AST 14, ALT less than 5, magnesium 2.0 CRP 16.7, TSH 0.46, proBNP 5476, lactic acid 0.7 Urinalysis showed yellow urine that was slightly cloudy with elevated specific gravity, pH of 5.5, negative leukocyte esterase and nitrates, 3+ protein, negative glucose and ketones, 2+ bilirubin, 0-2 white blood cells, 0-2 red blood cells, 1+ bacteria with 0-5 epithelial cells EKG interpretation from ER physician there showed nonspecific changes, no cardiac enzymes have been done A&P Assessment and plan (1) Fever: Associated with nausea and vomiting x2 days although not had any here or mentioned as having had at outside emergency room. Without a clear foci of infection currently. Has not received any antibiotics and has normal white count and normal differential. Urinalysis at outside facility look to be contaminated specimen. Chest x-ray shows vascular congestion but no effusion or consolidation. Aspiration pneumonitis could present this was. Lactic acid was normal. Patient has had a tick removed recently but has normal platelet counts and LFTs. Granddaughter was at the house and febrile within the last 48 hours keeping a viral process in the mix. Had negative Covid testing at outside facility and does not describe any known contacts. No lower GI symptoms currently. Vascular process can also potentially cause low-grade fever. Status: Acute Qualifiers: Fever type: unspecified Qualified Code(s): R50.9 - Fever, unspecified (2) CHF (congestive heart failure): Chest x-ray findings and elevated BNP and nonproductive cough of late are suggestive of acute on chronic CHF although does not have peripheral edema. Medication induced cough a consideration seems less likely. She is supposed to be on CPAP for sleep apnea but refuses. Increasing pulmonary pressures over time might account for worsening diastolic dysfunction. Status: Chronic Qualifiers: Heart failure type: unspecified Heart failure chronicity: acute on chronic Qualified Code(s): I50.9 - Heart failure, unspecified (3) Ischemic cardiomyopathy: According to review of records, family denies any cardiac intervention previously. She has been having chest pain lately. Status: Deleted (4) CKD (chronic kidney disease): Appears near baseline Status: Chronic Qualifiers: Chronic kidney disease stage: stage 3 (moderate) Chronic kidney disease stage 3 subtype: unspecified whether 3a or 3b Qualified Code(s): N18.30 - Chronic kidney disease, stage 3 unspecified (5) Hypertension: Currently controlled and actually lower range of normal Status: Chronic Qualifiers: Hypertension type: essential hypertension Qualified Code(s): I10 - Essential (primary) hypertension (6) Alzheimer disease: Status: Chronic Additional A&P Information Inpatient admission Serial cardiac enzymes and EKGs We will give a dose of Lasix IV and monitor response, hold home oral Lasix currently Check echocardiogram Wean oxygen as able Monitor for recurrent fever I have held antibiotics at the moment Check procalcitonin Repeat chest x-ray here Straight cath urinalysis, discussed with daughter Blood cultures Monitor LFTs and platelet count, if develop such abnormalities, will consider doxycycline empirically and drawing of tick titers, tick was just removed yesterday according to the daughter PT and OT evaluation Will allow daughter to stay with patient as she reportedly gets confused and has a hard time with her dementia outside of her usual environment Further plans depending on clinical course and results of above DVT prophylaxis: Lovenox Plans, findings and concerns discussed with patient's daughter as well as with patient to a more basic degree and both were given an opportunity to ask questions. Anticipated Disposition: Home with family Code Status: Allow natural Attestations Medical Necessity Statement*: Currently anticipate a stay greater than 2 midnights in this patient with symptoms and findings as described. She is receiving IV diuresis, cardiac work-up, monitoring of temperature curve and renal function and other care as noted above. Her dementia limits ability to get an accurate assessment of her complaints. Coding Level of Care Code Acute Weather Observer for Chg Fwd Diagnoses Fever R50.9 Fever type: unspecified CHF (congestive heart failure) I50.9 Heart failure type: unspecified Heart failure chronicity: acute on chronic Ischemic cardiomyopathy I25.5 CKD (chronic kidney disease) N18.30 Chronic kidney disease stage: stage 3 (moderate) Chronic kidney disease stage 3 subtype: unspecified whether 3a or 3b Hypertension I10 Hypertension type: essential hypertension Alzheimer disease G30.9; F02.80
[2020-12-07 23:34] VITALS: PULSE 101
[2020-12-07 23:35] VITALS: PULSE 101
--- NOTE | 2020-12-07 23:35 | ECG_ITS ---
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 Measurements Intervals [place] Rate: 101 P: 93 CA: 139 QRS: -54 QRSD: 141 T: 35 QT: 344 QTc: 447 Interpretive Statements SINUS TACHYCARDIA MARKED LEFT AXIS DEVIATION [QRS AXIS < -30] LEFT BUNDLE BRANCH BLOCK [120+ ms QRS DURATION, 80+ ms Q/S IN V1/V2, 85+ ms R IN I/aVL/V5/V6] Compared to ECG 12/16/2014 07:26:13 Left-axis deviation now present Left bundle-branch block now present Ventricular premature complex(es) no longer present Myocardial infarct finding no longer present Electronically Signed On 12-08-2020 10:06:51 CDT by Tatianna Dangelo M.D. [id number]
[2020-12-07 23:48] VITALS: BP 111/68; PULSE 104; RESP 18; TEMP 38.7; O2SAT 92
[2020-12-08] VITALS (12 sets, daily range): BP systolic 98–120; BP diastolic 60–80; PULSE 53–111; RESP 17–24; TEMP 36.4–36.8; O2SAT 90–96; BMI 34.5
[2020-12-08] MEDS: FUROsemide 10 mg/mL SDV 4mL 40 MG IVP ×2 (00:43→23:09)
[2020-12-08] MEDS: enoxaparin 40 mg/0.4 mL Syringe SUBCUT ×2 (00:43→23:20)
[2020-12-08 00:52] LABS: Glucose Point of Care 92 mg/dL (70-110)
[2020-12-08 01:34] LABS: Troponin(5th) Baseline 24 ng/L (0-10)
--- NOTE | 2020-12-08 01:35 | ECG_ITS ---
[facility] ED Test Date: 2020-12-08 Pat Name: Danyelle Hanna Department: Room: 276 Gender: Female Hog Slaughterer: : 1940 Requested By: Simona Wood Order Number: [id number] Ami MD: Tatianna Dangelo M.D. Measurements Intervals [place] Rate: 102 P: 55 [place]: 137 QRS: -57 QRSD: 142 T: 34 QT: 334 QTc: 435 Interpretive Statements SINUS TACHYCARDIA MARKED LEFT AXIS DEVIATION [QRS AXIS < -30] LEFT BUNDLE BRANCH BLOCK [120+ ms QRS DURATION, 80+ ms Q/S IN V1/V2, 85+ ms R IN I/aVL/V5/V6] Compared to ECG 12/08/2020 00:20:17 No significant changes Electronically Signed On 12-08-2020 23:01:20 CDT by Tatianna Dangelo M.D. [id number]
[2020-12-08 02:00] LABS: Procalcitonin 0.15 ng/mL (0-0.5)
[2020-12-08 03:59] LABS: Basophils % 0.4 %; Eosinophils # 0.2 10^3/uL (0.0-0.8); Hematocrit 37.1 % (37.0-47.0); Hemoglobin 11.4 g/dL (11.5-15.3); Lymphocytes # 1.2 10^3/uL (0.8-4.8); Lymphocytes % 21.1 %; Mean Corpuscular HGB Conc 30.7 g/dL (30.0-36.0); Mean Corpuscular Hemoglobin 26.9 pg (28.0-34.0); Mean Corpuscular Volume 87.5 fL (81-99); Mean Platelet Volume 11.3 fL (7.4-10.4); Monocytes # 0.6 10^3/uL (0.2-0.9); Monocytes % 11.2 %; Neutrophils # 3.49 10^3/uL (1.8-7.7); Neutrophils % 62.8 %; Nucleated Red Blood Cells % 0 %; Platelet Count 181 10^3/cmm (130-400); Red Blood Count 4.24 10^6/uL (4.1-5.3); White Blood Count 5.6 10^3/uL (4.0-10.0)
[2020-12-08 04:19] LABS: Anion Gap 15.9 (5-19); Blood Urea Nitrogen 14 mg/dL (8-23); Carbon Dioxide 25 mmol/L (22-29); Chloride 101 mmol/L (98-107); Glucose 93 mg/dL (65-115); Magnesium 1.7 mg/dL (1.7-2.3); Osmolality Calculated 286 mOsm/kg (285-295); Potassium 3.9 mmol/L (3.5-5.1); Sodium 138 mmol/L (136-145)
[2020-12-08 04:20] LABS: Troponin 5 2HR 25.19 ng/L (0-10); Troponin 5 2HR Delta 1.19 ABS# (0-10)
[2020-12-08] MEDS: levothyroxine 50 mcg Tablet PO (05:34)
--- NOTE | 2020-12-08 05:35 | ECG_ITS ---
[facility] ED Test Date: 2020-12-08 Pat Name: Danyelle Hanna Department: Room: 276 Gender: Female Entry Level Software Developer: : 1940 Requested By: Simona Wood Order Number: [id number] Ami MD: Tatianna Dangelo M.D. Measurements Intervals [place] Rate: 103 P: 37 NM: 142 QRS: -38 QRSD: 136 T: 88 QT: 327 QTc: 429 Interpretive Statements SINUS TACHYCARDIA WITH FREQUENT VENTRICULAR PREMATURE COMPLEXES MARKED LEFT AXIS DEVIATION [QRS AXIS < -30] LEFT BUNDLE BRANCH BLOCK Compared to ECG 12/08/2020 03:23:46 Ventricular premature complex(es) now present Electronically Signed On 12-08-2020 23:00:41 CDT by Tatianna Dangelo M.D. [id number]
[2020-12-08 06:51] LABS: Glucose Point of Care 90 mg/dL (70-110)
[2020-12-08 07:55] LABS: Troponin 5 6HR 23.37 ng/L (0-10)
[2020-12-08 08:11] LABS: Troponin 5 6HR Delta -0.63 ng/L (0-12)
--- NOTE | 2020-12-08 08:39 | XR_ITS ---
WS: [id number] Exam: XR chest 2V insp/exp [id number] Date/Time of Exam: 12/08/2020 8:39 AM Reason For Exam: sob, vomiting, fever, hx chf Comparison 06/23/2020. Ill-defined soft tissue nodule is seen near the left costophrenic angle may represent a nipple shadow . The lungs are otherwise clear. Normal cardiomediastinal structures and regional bony elements. Tita toring leads superimpose the chest. No pleural effusions. No pneumothorax. Recommendations: A nonemergent follow-up PA and lateral chest x-ray with nipple markers in place coul d be performed if thought to be clinically warranted. XR/XR chest 2V insp/exp [id number] IMPRESSION: 1. No acute cardiopulmonary finding. No pneumothorax. 2. Ill-defined soft tissue nodular density near the left costophrenic angle gallito t may represent a nipple shadow.
[2020-12-08] MEDS: aspirin 81 mg EC Tablet PO (08:58)
[2020-12-08] MEDS: memantine 5 mg tablet 10 MG PO ×2 (08:59→18:32)
[2020-12-08] MEDS: isosorbide mononitrate ER 30 mg Tablet PO (08:59)
[2020-12-08] MEDS: venlafaxine ER (24HR) 37.5 mg Capsule PO (08:59)
[2020-12-08] MEDS: pantoprazole DR 40 mg Tablet PO (08:59)
--- NOTE | 2020-12-08 10:29 | PC.PHAR ---
PTS DAUGHTER LEILANI [phone] VERIFIED PTS MEDICATIONS-STATES SHE TAKES CARE OF HER MOTHERS MEDICATIONS-PTS DAUGHTER STATES THE LASIX MAYBE A LEFT OVER RX FROM HER FATHER THAT THE PT HAS BEEN TAKING EXT MED HISTORY DOESNT SHOW THE LAST TIME FILLED-PTS DAUGHTER STATES THE PT HAD EYE DROPS BUT IS UNSURE IF THE PT IS TAKING THEM-PTS DAUGHTER STATES THE PT IS TAKING LISINOPRIL 5MG DAILY-EXT MED HISTORY SHOWS LAST FILLED ON 04/27/2020 90D/S-COMMENTS ARE MADE ON EACH RX IN THE PHARMACY COMMENTS
--- NOTE | 2020-12-08 12:25 | PM.PN ---
Subjective Subjective: Interval history: Danyelle reports she feels a little bit better. Daughter is at bedside and reports that her mother has some dementia, limiting her ability to remember well. Patient denies any pain. She is coughing occasionally when I examined her. Medications: Reviewed: Yes Vitals/I&O/Wt Last Vital Signs Temp 97.6 F 12/08/20 08:00 Pulse 111 H 12/08/20 11:36 Resp 20 H 12/08/20 11:36 BP 98/64 12/08/20 08:00 Pulse Ox 94 12/08/20 11:36 12/07/20 12/08/20 12/08/20 22:59 06:59 14:59 Intake Total 240 / 240 Output Total 300 / 300 Balance -300 / -300 240 / 240 Weight last 48 hrs Weight 85.729 kg Weight 189.9 g Physical Exam Narrative: EXAM NARRATIVE: General exam no apparent distress Cardiovascular regular rate and rhythm without murmur Lungs coarse breath sounds at the bases Abdomen is soft nontender with positive bowel sounds Extremities no cyanosis clubbing or edema Data : 12/08/20 03:22 12/08/20 03:22 Micro: Microbiology 12/08/20 03:22 Blood Culture - Preliminary Blood SPECIMEN COLLECTED 12/08/20 01:00 Blood Culture - Preliminary Blood SPECIMEN COLLECTED A&P Assessment and plan (1) Fever: Covid testing at outside facility was negative Blood cultures were drawn on admission Also with history of multiple tick bites. No obvious transaminitis. Repeat x-ray here demonstrates no obvious pneumonia. Initiate doxycycline 100 mg twice daily for acute bronchitis DuoNeb as needed Status: Acute Qualifiers: Fever type: unspecified Qualified Code(s): R50.9 - Fever, unspecified (2) Nonischemic cardiomyopathy: Past history of nonischemic cardiomyopathy with EF of 35% Status: Chronic (3) CHF (congestive heart failure): Continue IV Lasix consistent with acute systolic heart failure Check echocardiogram Continue Lasix IV Status: Chronic Qualifiers: Heart failure chronicity: acute on chronic Heart failure type: unspecified Qualified Code(s): I50.9 - Heart failure, unspecified (4) Alzheimer disease: Status: Chronic (5) CKD (chronic kidney disease): Stable currently Status: Chronic Qualifiers: Chronic kidney disease stage: stage 3 (moderate) Chronic kidney disease stage 3 subtype: unspecified whether 3a or 3b Qualified Code(s): N18.30 - Chronic kidney disease, stage 3 unspecified Additional A&P Information Full code Lovenox for DVT prophylaxis Attestations Medical Necessity Statement*: Needs continued hospitalization for treatment of acute systolic heart failure on further diuresis. Coding Level of Care Code Acute Digitizer Operator for g Fwd Diagnoses Fever R50.9 Fever type: unspecified Nonischemic cardiomyopathy I42.8 CHF (congestive heart failure) I50.9 Heart failure chronicity: acute on chronic Heart failure type: unspecified Alzheimer disease G30.9; F02.80 CKD (chronic kidney disease) N18.30 Chronic kidney disease stage: stage 3 (moderate) Chronic kidney disease stage 3 subtype: unspecified whether 3a or 3b
[2020-12-08] MEDS: doxycycline 100 mg Tablet PO ×2 (13:38→18:32)
[2020-12-08 19:22] LABS: Glucose Urine UA Norm (Normal); Ketones Urine Negative (Negative); Protein Urine Neg (Negative); Urine Appearance Hazy (CLEAR); Urine Color Yellow (Yellow); pH Urine 5 (5-7)
[2020-12-08 19:23] LABS: Add Urine Microscopic? YES; Bilirubin Urine 1+ (Negative); Blood Urine 2+ (Negative); Leukocyte Esterase Urine Negative (Negative); Nitrate Urine Negative (Negative); Urobilinogen Urine Norm (Negative)
[2020-12-08 19:38] LABS: Add Urine Culture? No; Bacteria Urine 1+ /hpf; Hyaline Casts Urine >100 /lpf; RBC Urine 0-4 /hpf (0-2)
[2020-12-08] MEDS: ipratropium-albuterol 3 mL Neb INHALATION (21:50)
[2020-12-08] MEDS: donepezil 5 MG Tablet 10 MG PO (23:20)
[2020-12-09] VITALS (9 sets, daily range): BP systolic 111–129; BP diastolic 60–75; PULSE 56–102; RESP 17–21; TEMP 36.7–36.9; O2SAT 88–98
[2020-12-09] MEDS: levothyroxine 50 mcg Tablet PO (05:30)
[2020-12-09 05:34] LABS: Basophils % 0.4 %; Eosinophils # 0.7 10^3/uL (0.0-0.8); Eosinophils % 11.8 %; Hematocrit 37.5 % (37.0-47.0); Hemoglobin 11.4 g/dL (11.5-15.3); Lymphocytes % 35.8 %; Mean Corpuscular HGB Conc 30.4 g/dL (30.0-36.0); Mean Corpuscular Hemoglobin 26.6 pg (28.0-34.0); Mean Corpuscular Volume 87.6 fL (81-99); Mean Platelet Volume 11.4 fL (7.4-10.4); Monocytes # 0.7 10^3/uL (0.2-0.9); Monocytes % 11.9 %; Neutrophils # 2.26 10^3/uL (1.8-7.7); Neutrophils % 39.6 %; Nucleated Red Blood Cells % 0 %; Platelet Count 185 10^3/cmm (130-400); Red Blood Count 4.28 10^6/uL (4.1-5.3); White Blood Count 5.7 10^3/uL (4.0-10.0)
[2020-12-09 05:54] LABS: Alanine Aminotransferase 6 U/L (0-33); Albumin Level 3.6 g/dL (3.5-5.2); Alkaline Phosphatase 68 IU/L (35-105); Anion Gap 15.6 (5-19); Aspartate Amino Transferase 13 U/L (0-32); Blood Urea Nitrogen 23 mg/dL (8-23); Calcium 8.7 mg/dL (8.5-10.5); Carbon Dioxide 25 mmol/L (22-29); Chloride 102 mmol/L (98-107); Globulin 3.6 g/dL (1.3-4.6); Glucose 108 mg/dL (65-115); Osmolality Calculated 292 mOsm/kg (285-295); Potassium 3.6 mmol/L (3.5-5.1); Sodium 139 mmol/L (136-145); Total Bilirubin 0.2 mg/dL (0.15-1.2); Total Protein 7.2 g/dL (6.6-8.7)
--- NOTE | 2020-12-09 07:07 | PC.NURSE ---
Shift Summary pt did well throughout the night. daughter present at bedside all night. pt received breathing then slept well all night
[2020-12-09] MEDS: ipratropium-albuterol 3 mL Neb INHALATION (09:02)
[2020-12-09] MEDS: aspirin 81 mg EC Tablet PO (09:20)
[2020-12-09] MEDS: memantine 5 mg tablet 10 MG PO (09:20)
[2020-12-09] MEDS: pantoprazole DR 40 mg Tablet PO (09:20)
[2020-12-09] MEDS: doxycycline 100 mg Tablet PO (09:20)
[2020-12-09] MEDS: lisinopril 5 mg Tablet PO (09:21)
[2020-12-09] MEDS: venlafaxine ER (24HR) 37.5 mg Capsule PO (09:21)
[2020-12-09] MEDS: isosorbide mononitrate ER 30 mg Tablet PO (09:21)
--- NOTE | 2020-12-09 11:59 | P.DS_ITS ---
Discharge Providers Date of Admission: 12/07/20 22:51 Date of Discharge: December 09, 2020 Attending Provider at Admission: Simona Wood MD Attending Provider at Discharge: Mars Galvan MD Primary Care Provider: Alba Dueñas MD Diagnoses at Discharge Discharge Diagnosis (1) Fever: Status: Acute Qualifiers: Fever type: unspecified Qualified Code(s): R50.9 - Fever, unspecified (2) Nonischemic cardiomyopathy: Status: Chronic (3) CHF (congestive heart failure): Status: Chronic Qualifiers: Heart failure type: unspecified Heart failure chronicity: acute on chronic Qualified Code(s): I50.9 - Heart failure, unspecified (4) Alzheimer disease: Status: Chronic (5) CKD (chronic kidney disease): Status: Chronic Qualifiers: Chronic kidney disease stage: stage 3 (moderate) Chronic kidney disease stage 3 subtype: unspecified whether 3a or 3b Qualified Code(s): N18.30 - Chronic kidney disease, stage 3 unspecified Reason for Visit Reason for Visit: CHF, [facility] Hospital Course Hospital Course Danyelle is an 80-year-old white female who presented to the hospital with complaints of cough, shortness of breath and possible pneumonia. [facility]-up at the [facility] demonstrated an elevated BNP, and negative Covid test, and questionable infi ltrate on x-ray. There is also been a concern of possible tick removal. Patient has some underlying lung disease as demonstrated by her being on theophylline chronically. This is presumed to be COPD although patient does not have a history of tobacco use. She was admitted to the hospital, and diuresed with IV Lasix 40 mg every 24 hours. Delta troponin was not significant. She was placed on doxycycline for the possibility of bronchitis and given pulmonary toilet secondary to wheezing heard. Echocardiogram was performed which demonstrated ejection fraction of 35%, stable to slightly higher than last echocardiogram. No significant valvular abnormalities were noted. Oxygenation improved while in the hospital, down to room air alternating with 2 L depending on sleeping. She has a past history of sleep apnea for which she is supposed to use CPAP, but refuses to currently. The daughter believes she is unlikely to use it and for that reason is not eager for a sleep study currently. She did have temperature elevation on presentation, but no further fever. Chest x-ray did not show pneumonia here. Blood cultures were negative. With her clinical improvement, it was thought she could be discharged home after home oxygen evaluation. Her daughter reports she has had decreased oxygen saturations with ambulation for quite a while. Could consider follow-up with pulmonary as an outpatient but I will defer to her primary care provider. She will finish a course of doxycycline. DME for nebulizer, and DuoNeb as this helps wheezing greatly while in the hospital. Preliminary diagnosis of COPD added to her diagnosis list. With changes in medicine she should get a BMP on follow-up with her primary care provider to recheck potassium and kidney function. She will be discharged on Lasix 40 mg once daily, potassium 10 mEq a day in addition to her other medications. Physical Exam Narrative: EXAM NARRATIVE: General exam no apparent distress, forgetful, daughter at bedside Cardiovascular regular rate and rhythm without murmur Lungs a few faint expiratory wheezes Abdomen is soft nontender with positive bowel sounds Extremities no cyanosis clubbing or edema Discharge Data Data Completed and Pending: Completed Studies During Hospitalization Category Date Time Status XR chest 2V insp/ exp [id number] Routine Exams 12/08/20 08:39 Completed CV echo complete* [id number] Routine Ultrasound 12/09/20 12:33 Completed Pending at discharge Category Date Time Status Blood Culture Sta t Lab 12/07/20 23:34 Results Labs from last 24 hours 12/09/20 12/09/20 12/08/20 04:59 04:59 18:58 WBC 5.7 RBC 4.28 Hgb 11.4 L Hct 37.5 MCV 87.6 MCH 26.6 L MCHC 30.4 RDW 14.0 Plt Count 185 MPV 11.4 H Neut % (Auto) 39.6 Lymph % (Auto) 35.8 Grayson % (Auto) 11.9 Eos % (Auto) 11.8 Baso % (Auto) 0.4 Neut # (Auto) 2.26 Lymph # (Auto) 2.0 Grayson # (Auto) 0.7 Eos # (Auto) 0.7 Baso # (Auto) 0.0 Nucleated RBC % (a uto) 0 Nucleated RBCs # 0.0 Sodium 139 Potassium 3.6 Chloride 102 Carbon Dioxide 25 Anion Gap 15.6 BUN 23 Creatinine 1.3 H GFR Calculation Not Reportable Glucose 108 Calculated Osmolal ity 292 Calcium 8.7 Total Bilirubin 0.2 AST 13 ALT 6 Alkaline Phosphata se 68 Total Protein 7.2 Albumin 3.6 Globulin 3.6 Urine Color Yellow Urine Appearance Hazy A Urine pH 5 Ur Specific Gravit y 1.020 Urine Protein Neg Urine Glucose (UA) Norm Urine Ketones Negative Urine Blood 2+ H Urine Nitrate Negative Urine Bilirubin 1+ H Prot Sulfosalicyli c Acd Urine Urobilinogen Norm Ur Leukocyte Kallie ase Negative Urine RBC 0-4 H Urine WBC 5-10 H Ur Squamous Epith Cells 5-10 H Ur Transition Epit h Cell 5-10 Amorphous Sediment Not Reportable Urine Bacteria 1+ H Hyaline Casts >100 H 12/08/20 12:23 WBC RBC Hgb Hct MCV MCH MCHC RDW Plt Count MPV Neut % (Auto) Lymph % (Auto) Grayson % (Auto) Eos % (Auto) Baso % (Auto) Neut # (Auto) Lymph # (Auto) Grayson # (Auto) Eos # (Auto) Baso # (Auto) Nucleated RBC % (a uto) Nucleated RBCs # Sodium Potassium Chloride Carbon Dioxide Anion Gap BUN Creatinine GFR Calculation Glucose Calculated Osmolal ity Calcium Total Bilirubin AST ALT Alkaline Phosphata se Total Protein Albumin Globulin Urine Color Cancelled Urine Appearance Cancelled Urine pH Cancelled Ur Specific Gravit y Cancelled Urine Protein Cancelled Urine Glucose (UA) Cancelled Urine Ketones Cancelled Urine Blood Cancelled Urine Nitrate Cancelled Urine Bilirubin Cancelled Prot Sulfosalicyli c Acd Cancelled Urine Urobilinogen Cancelled Ur Leukocyte Kallie ase Cancelled Urine RBC Urine WBC Ur Squamous Epith Cells Ur Transition Epit h Cell Amorphous Sediment Urine Bacteria Hyaline Casts Vitals: Last Vital Signs Temp 98.2 F 12/09/20 11:45 Pulse 89 12/09/20 11:45 Resp 17 12/09/20 11:45 BP 122/60 12/09/20 11:45 Pulse Ox 93 12/09/20 11:45 Discharge Plan Discharge Patient Disposition: Home Condition: Stable Prescriptions: New lisinopril 5 mg Tablet 5 mg PO DAILY Qty: 30 RF: 0 furosemide [Lasix] 40 mg tablet 40 mg PO QAM Qty: 30 RF: 0 potassium chloride 10 mEq capsule, extended release 10 meq PO DAILY Qty: 30 RF: 0 doxycycline monohydrate 100 mg Tablet 100 mg PO BID Qty: 14 RF: 0 ipratropium-albuterol 0.5 mg-3 mg(2.5 mg base)/3 mL solution for nebulization 3 ml inhalation Q6H PRN (Reason: shortness of breath or wheezing) Qty: 90 RF: 0 Continued timolol 0.5 % drops 1 drop ophthalmic (eye) DAILY RF: 0 Alphagan P 0.1 % drops 1 drop ophthalmic (eye) BID RF: 0 ketotifen fumarate [Zaditor] 0.025 % (0.035 %) drops 1 drop ophthalmic (eye) BID RF: 0 levothyroxine 50 mcg tablet 50 mcg PO QAM RF: 0 aspirin 325 mg tablet 325 mg PO QAM RF: 0 nitroglycerin [Nitrostat] 0.4 mg tablet, sublingual 0.4 mg SUBLINGUAL Q5M PRN (Reason: chest pain) Qty: 25 RF: 3 omeprazole 20 mg tablet,delayed release (DR/EC) 20 mg PO BID RF: 0 memantine [Namenda] 10 mg tablet 10 mg PO BID 7 Days Qty: 14 RF: 0 carvedilol 6.25 mg tablet 6.25 mg PO BID Qty: 180 RF: 3 ondansetron HCl [Zofran] 4 mg tablet 4 mg PO Q6H PRN (Reason: nausea and vomiting) Qty: 14 RF: 0 isosorbide mononitrate 60 mg tablet extended release 24 hr 60 mg PO QAM RF: 0 theophylline 400 mg tablet extended release 24 hr 400 mg PO QAM RF: 0 acetaminophen 500 mg Tablet 1,000 mg PO PRN RF: 0 Effexor XR 37.5 mg capsule,extended release 24hr 37.5 mg PO BEDTIME RF: 0 Aricept 10 mg tablet 10 mg PO QAM RF: 0 MSM Glucosamine Complex 500-333.3 mg Tablet 2 tab PO DAILY RF: 0 Discontinued furosemide [Lasix] 20 mg tablet 10 - 20 mg PO DAILY RF: 0 lisinopril 5 mg tablet 2.5 mg PO DAILY RF: 0 Discharge Orders: Discharge Order (Routine); Ordered 12/09/20 Ordered By: Mars Galvan Other Ambulatory Orders: DME: Nebulizer with Neb Kit (Order) Location: None Selected Ordered By: Mars Galvan Referrals: Alba Dueñas MD [Primary Care Provider] - 4-7 days (BMP on follow-up for recheck of potassium and kidney function with medication changes) Discharge Diet: Cardiac Discharge Activity: Increase activity as tolerated Patient Instructions: Opioid Safety Activity Restrictions/Additional Instructions: Home oxygen evaluation prior to discharge Note DME in the form of nebulizer Follow-up with primary care provider 3 to 5 days, with laboratory and follow-up. Discharge Attestations Time Spent in Discharge Care*: greater than 30 min Quality Metrics Clinical Quality Measures During this hospital stay, did patient experience: None Coding Level of Care Code Acute Chg FW DC note Diagnoses Fever R50.9 Fever type: unspecified Nonischemic cardiomyopathy I42.8 CHF (congestive heart failure) I50.9 Heart failure type: unspecified Heart failure chronicity: acute on chronic Alzheimer disease G30.9; F02.80 CKD (chronic kidney disease) N18.30 Chronic kidney disease stage: stage 3 (moderate) Chronic kidney disease stage 3 subtype: unspecified whether 3a or 3b
--- NOTE | 2020-12-09 12:33 | USCV_ITS ---
JacquesDanyelle Age: 80 Gender: F : 1940 Exam Date: 12/09/2020 06:10 Ordering Phys: Mars Galvan MD Technologist: Katerina hSine [place] [facility] [place]: CHF BP: 129 / 75 HR: 94 Rhythm: Sinus Technical Quality: Adequate MEASUREMENTS (Male / Female) Normal Values 2D ECHO LV Diastolic Diameter PLAX 5.6 cm 4.2 - 5.9 / 3.9 - 5.3 cm LV Systolic Diameter PLAX 4.6 cm LV Chamber Size 3.4 cm IVS Diastolic Thickness 1.0 cm 0.6 - 1.0 / 0.6 - 0.9 cm IVS Systolic Thickness 1.7 cm LVPW Diastolic Thickness 1.2 cm 0.6 - 1.0 / 0.6 - 0.9 cm LVPW Systolic Thickness 1.2 cm RV Chamber Size 2.2 cm LVOT Diameter 2.1 cm LV Ejection Fraction 2D Teich 34.7 % LA Diameter 3.1 cm LA Width 2.4 cm LA Height 3.7 cm RA Width 2.3 cm RA Height 3.3 cm Aorta at Sinotubular Diameter 3.2 cm M-MODE LV Diastolic Diameter MM 4.7 cm 4.2 - 5.9 / 3.9 - 5.3 cm LV Systolic Diameter MM 3.0 cm LV Ejection Fraction MM Teich 64.1 % IVS Diastolic Thickness MM 1.2 cm 0.6 - 1.0 / 0.6 - 0.9 cm IVS Systolic Thickness MM 1.8 cm LVPW Diastolic Thickness MM 1.3 cm 0.6 - 1.0 / 0.6 - 0.9 cm LVPW Systolic Thickness MM 1.8 cm Aortic Annulus Diameter 3.4 cm LA Ao Ratio MM 0.9 MV E Point Septal Separation 1.9 cm DOPPLER AV Peak Velocity 145.0 cm/s LVOT Peak Velocity 66.7 cm/s AV Area Cont Eq vti 1.6 cm squared AV Area Cont Eq pk 1.6 cm squared MV Area PHT 4.6 cm squared MV E' Velocity 38.8 cm/s Mitral E to MV E' Ratio 24.1 Mitral E to LV E' Lateral Ratio 28.6 Mitral E to LV E' Septal Ratio 20.8 TR Peak Velocity 179.8 cm/s TR Peak Gradient 12.9 mmHg TR Mean Velocity 143.4 cm/s TR Mean Gradient 8.7 mmHg TR Velocity Time Integral 43.6 cm TV Peak E Velocity 70.0 cm/s Right Atrial Pressure 3.0 mmHg Pulmonary Artery Systolic Pressu 15.9 mmHg PV Peak Velocity 81.0 cm/s RV Acceleration Time 0.1 s RV Ejection Time 0.3 s RV AcT/ET 0.3 FINDINGS Left Ventricle Dilated dilated LV cavity. Diffuse hypokinesia of the left ventricle. Ejection fraction around 35%. Frequent PVCs were noted during the study. Right Ventricle Possibly of normal size and ejection fraction. Right Atrium Possibly of normal size. Left Atrium Normal left atrial size. Mitral Valve Thickened mitral valve. Mild mitral annular calcification. Aortic Valve Thickened aortic valve. Tricuspid Valve No gross abnormalities noted in the valve morphology Pulmonic Valve Pulmonic valve not well visualized. Pericardium No pericardial effusion. Aorta Normal aortic annulus size. CONCLUSIONS Mildly dilated LV cavity with a diminished ejection fraction of 35%. Diffuse hypokinesia of the left ventricle. In view of the frequent ventricular arrhythmia, the ejection fraction estimation and the segmental wall motion analysis could be misleading. Minimally thickened aortic and mitral valves. Mild mitral annular calcification. There is no pericardial effusion. There are no intracardiac masses. Consider repeating the study once the arrhythmia is properly treated. Compared to the study from 05/29/2018, there seems to be some improvement in the LV ejection fraction Dr Betzy Mendoza MD [facility] (Electronically Signed) Final Date: 09 December 2020 09:31 S
[2020-12-09] MEDS: guaiFENesin 100 mg/5 mL UDC 10 mL 200 MG PO (13:26)
--- NOTE | 2020-12-09 14:07 | PC.NUTR ---
Nutrition note: Pt triggered at risk per Timothy assessment, however trigger no longer appears in system at this time. No MD consult or other triggers noted per chart review. Will assess at LOS or as needed per consult.
== END 2020-12-09 15:00 | disposition home or self-care (01) | DRG 291 ==
PROVIDERS: Admitting Provider Hospitalist; PCP Family Medicine; Visit Provider Internal Medicine
DX: I13.0 Hypertensive heart and chronic kidney disease with heart failure and stage 1 through stage 4 chronic kidney disease, or unspecified chronic kidney disease (principal); I50.23 Acute on chronic systolic (congestive) heart failure; N18.30 Chronic kidney disease, stage 3 unspecified; J44.9 Chronic obstructive pulmonary disease, unspecified; I42.8 Other cardiomyopathies; G30.9 Alzheimer's disease, unspecified; F02.80 Dementia in other diseases classified elsewhere, unspecified severity, without behavioral disturbance, psychotic disturbance, mood disturbance, and anxiety; K21.9 Gastro-esophageal reflux disease without esophagitis; Z85.828 Personal history of other malignant neoplasm of skin; E03.9 Hypothyroidism, unspecified; G47.33 Obstructive sleep apnea (adult) (pediatric); M81.0 Age-related osteoporosis without current pathological fracture; R50.9 Fever, unspecified
CPT/HCPCS: 36415; 36416; 51702; 71046; 80048; 80053; 81001; 82962; 83735; 84145; 84484; 85025; 87040; 93005; 93306; 94640; 94664; 96372; 97116; 97162; 97530; J1650; J1940

== ENCOUNTER 2021-02-22 16:04 | Inpatient (IN) | payer MEDICARE, OTHER, SELFPAY ==
[2021-02-22] VITALS (11 sets, daily range): BP systolic 72–104; BP diastolic 48–61; PULSE 83–91; RESP 15–23; TEMP 36.4; O2SAT 88–97; BMI 32.9
--- NOTE | 2021-02-22 16:48 | ECG_ITS ---
[facility] Test Date: 2021-02-22 Pat Name: Danyelle Hanna Department: Room: Gender: Female [employer] Helper: : 1940 Requested By: Miko Cortez I Order Number: [id number] Ami MD: Santos Hall M.D. Measurements Intervals [place] Rate: 88 P: 43 MT: 144 QRS: -41 QRSD: 141 T: 107 QT: 360 QTc: 437 Interpretive Statements SINUS RHYTHM LEFT AXIS DEVIATION [QRS AXIS < -30] LEFT BUNDLE BRANCH BLOCK [120+ ms QRS DURATION, 80+ ms Q/S IN V1/V2, 85+ ms R IN I/aVL/V5/V6] Compared to ECG 12/08/2020 09:50:06 Sinus tachycardia no longer present Ventricular premature complex(es) no longer present Electronically Signed On 02-22-2021 19:46:38 CDT by Santos Hall M.D. [email or web address]
--- NOTE | 2021-02-22 16:50 | XRR_ITS ---
PROCEDURE INFORMATION: Exam: XR Chest Exam date and time: 02/22/2021 4:50 PM Age: 80 years old Clinical indication: Shortness of breath; Additional info: SOB TECHNIQUE: Imaging protocol: XR of the chest. Views: 1 view. COMPARISON: CR XR chest 2V insp/exp [id number] 12/08/2020 9:09 AM FINDINGS: Lungs: Emphysematous changes. Bibasilar atelectasis versus minimal infiltrate. Pleural spaces: Unremarkable. No pleural effusion. No pneumothorax. Heart/Mediastinum: Cardiomegaly. Bones/joints: Unremarkable. XR/XR chest 1V portable [id number] IMPRESSION: 1. Cardiomegaly. 2. Emphysematous changes. 3. Bibasilar atelectasis versus minimal infiltrate.
--- NOTE | 2021-02-22 16:51 | USR_ITS ---
PROCEDURE INFORMATION: Exam: US Duplex Left Lower Extremity Veins, Limited Exam date and time: 02/22/2021 4:51 PM Age: 80 years old Clinical indication: Pain; Leg, upper and leg, lower; Left; Additional info: Calf pain, swelling TECHNIQUE: Imaging protocol: Real-time Duplex ultrasound of the Left Lower Extremity with 2-D cifuentes scale, color Doppler flow and spectral waveform analysis with image documentation. Limited exam focused on the left lower extremity veins. COMPARISON: No relevant prior studies available. FINDINGS: Left deep veins: Unremarkable. The common femoral, femoral, proximal profunda femoral and popliteal veins are patent without thrombus. Normal Doppler waveforms. Normal compressibility and/or augmentation response. Left superficial veins: Unremarkable. Saphenofemoral junction is patent without thrombus. Soft tissues: Unremarkable. US/CV venous duplex [facility] [id number] IMPRESSION: Negative for deep venous thrombosis.
--- NOTE | 2021-02-22 16:56 | ED_ITS ---
HPI - General Adult General: Chief complaint: General Medical Stated complaint: N/V, SWEATING, B/P LOW, O2 LOW Time Seen by Provider: 02/22/21 16:13 Source: patient, family (Daughter) and RN notes reviewed Mode of arrival: wheelchair Limitations: other (Dementia) History of Present Illness: HPI narrative: This 80-year-old female patient was brought into the emergency department by her daughter following a presyncopal episode. She has dementia and her daughter (an ED nurse) gave most of the history. She states that this is the third time the patient is having this kind of event. She stands up he gets diaphoretic, and the daughter notices that her blood pressure drops to around the 70s systolic. She has a history of dementia, hypertension, coronary artery disease. She may have a history of congestive heart failure but her daughter has not completely certain, but she takes diuretics. The patient was treated for pneumonia about 2 months ago. And the episodes have occurred after that. Onset (ago): hour(s) Associated symptoms: Reports diaphoresis; Deny chest pain, confusion, cough, decreased appetite, dyspnea, fevers/chills, headache(s), malaise, nausea, rash, palpitations, seizures, short of breath, syncope, vomiting or weakness Review of Systems General: Reports: ROS unobtainable due to medical condition (dementia) Const: Reports: diaphoresis; Denies: malaise Card: Denies: chest pain, palpitations or syncope Resp: Denies: dyspnea GI: Denies: nausea or vomiting Skin/Breast: Denies: rash Neuro: Denies: headache(s) or confusion PFS ED PFSH: Medical History Alzheimer disease 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 CHF (congestive heart failure) CKD (chronic kidney disease) DDD (degenerative disc disease) GERD (gastroesophageal reflux disease) History of skin cancer treated with excision Hypertension Hypothyroidism Nonischemic cardiomyopathy NEERAJ (obstructive sleep apnea) Osteoporosis Surgical History H/O carpal tunnel repair H/O cataract extraction H/O: hysterectomy Family History Father CAD (coronary artery disease) Myocardial infarction Mother CAD (coronary artery disease) Myocardial infarction Sister CAD (coronary artery disease) Myocardial infarction Brother CAD (coronary artery disease) Myocardial infarction Daughter Cancer COLON Social History Smoking and tobacco status: never smoked Alcohol intake: never Household members: family Marital status: / Physical Exam Const: COMMON NORMALS: no acute distress, average body habitus, no limitations, healthy appearing, alert and well nourished HENMT: COMMON NORMALS: normocephalic, atraumatic and moist oral mucous membranes HEAD & SCALP: normocephalic and atraumatic Eye: COMMON NORMALS: Equal, round and reactive pupils present, EOMs intact bilaterally, conjunctivae normal and no scleral icterus CONJUNCTIVA: Yes conj unctivae normal PUPIL: Yes Equal, round and reactive pupils present Neck/C-Spine: COMMON NORMALS: no meningeal signs and no JVD Resp: COMMON NORMALS: normal respiratory effort, No retractions, No use of accessory muscles, clear to auscultation bilaterally and percussion normal AUSCULTATION: clear to auscultation bilaterally PERCUSSION: percussion normal Cardio: COMMON NORMALS: no JVD, regular rate, regular rhythm, S1 normal heart sound present, S2 normal heart sound present, No gallops present (Cardio), No clicks present (Cardio), No murmurs present (Cardio), No rub (Cardio) and Peripheral pulses 2+ throughout RATE: regular rate RHYTHM: regular rhythm HEART SOUNDS: S1 normal heart sound present and S2 normal heart sound present PERIPHERAL PULSES: Peripheral pulses 2+ throughout GI: COMMON NORMALS: Normal to inspection, nondistended, normoactive bowel sounds present, Soft to palpation, non-tender, No hepatosplenomegaly present, no masses and no bruits PALPATION: Yes Soft to palpation and Yes No hepatosplenomegaly present Extremity: COMMON NORMALS: normal to inspection, full ROM, capillary refill normal, no calf tenderness and no pedal edema Neuro: SENSORIUM/ORIENTATION: Yes alert MENINGEAL SIGNS: Yes no meningeal signs Skin: COMMON NORMALS: no rashes or lesions noted, no wounds, turgor normal, no jaundice, no petechiae and no mottling GENERAL SKIN EXAM: no rashes or lesions noted and turgor normal Course Consultations: Consultation #1: Discussed the patient with Dr. Snow, hospitalist and she kindly accepted the patient to her service. Time: 20:54 Vital Signs: Vital signs: Vital Signs Temperature 97.6 F 02/24/21 18:01 Pulse Rate 95 02/24/21 18:01 Respiratory Rate 20 H 02/24/21 18:01 Blood Pressure 107/74 02/24/21 18:01 Pulse Oximetry 95 02/24/21 18:01 MDM - General Adult MDM Narrative: Medical decision making narrative: This 80 year old female was brought in to the ED for syncopal episodes. In the ED she tested positive for COVID-19 and CTA of her chest shows findings consistent with covid pneumonia. She is also orthostatic in the ED and i think she may be dehydrated plus this may be an effect of overmedication (antihypertensives). She is being admitted for further evaluation and management. Medical Records: Attestation: I reviewed the patient's medical records. Lab Data: Attestation: I reviewed the patient's lab results. Labs: Lab Results 02/22/21 02/22/21 02/22/21 Range/Units 16:35 16:35 16:35 WBC 7.1 (4.0-10.0) 10^3/ uL RBC 4.10 (4.1-5.3) 10^6/u L Hgb 11.1 L (11.5-15.3) g/dL Hct 36.6 L (37.0-47.0) % MCV 89.3 (81-99) fl MCH 27.1 L (28.0-34.0) pg MCHC 30.3 (30.0-36.0) g/dL RDW 15.8 H (12.1-15.1) % Plt Count 153 (130-400) 10^3/c mm MPV 11.9 H (7.4-10.4) fL Neut % (Auto) 71.9 % Lymph % (Auto) 15.9 % Woods % (Auto) 8.6 % Eos % (Auto) 2.5 % Baso % (Auto) 0.3 % Neut # (Auto) 5.12 (1.8-7.7) 10^3/u L Lymph # (Auto) 1.1 (0.8-4.8) 10^3/u L Woods # (Auto) 0.6 (0.2-0.9) 10^3/u L Eos # (Auto) 0.2 (0.0-0.8) 10^3/u L Baso # (Auto) 0.0 (0.0-0.1) 10^3/u L Nucleated RBC % (a uto) 0 % Nucleated RBCs # 0.0 /100WBC D-Dimer (0-0.59) ug/mIFE U Sodium 134 L (136-145) mmol/L Potassium 4.6 (3.5-5.1) mmol/L Chloride 99 (98-107) mmol/L Carbon Dioxide 22 (22-29) mmol/L Anion Gap 17.6 (5-19) BUN 27 H (8-23) mg/dL Creatinine 1.9 H (0.5-0.9) mg/dL GFR Calculation Not Reportable Glucose 124 H (65-115) mg/dL Calculated Osmolal ity 285 (285-295) mOsm/k g Lactate (0.5-2.2) mmol/L Calcium 8.7 (8.5-10.5) mg/dL Total Bilirubin 0.2 (0.15-1.2) mg/dL AST 17 (0-32) U/L ALT 7 (0-33) U/L Alkaline Phosphata se 71 (35-105) IU/L Troponin T Baselin e 34 H (0-10) ng/L Troponin T 120 Min chicken ranch (0-10) ng/L Delta Troponin T (0-10) ABS# Troponin T Hi Sens 6Hr (0-10) ng/L Troponin T Hi Sens 6Hr Delta (0-12) ng/L C-Reactive Protein 41.7 H (0.0-4.9) mg/L NT-Pro-B Natriuret Pep 3722 H (0-450) pg/mL Total Protein 6.9 (6.6-8.7) g/dL Albumin 3.7 (3.5-5.2) g/dL Globulin 3.2 (1.3-4.6) g/dL Lipase 79 H (13-60) U/L Urine Color (Yellow) Urine Appearance (CLEAR) Urine pH (5-7) Ur Specific Gravit y (1.005-1.030) Urine Protein (Negative) Urine Glucose (UA) (Normal) Urine Ketones (Negative) Urine Blood (Negative) Urine Nitrate (Negative) Urine Bilirubin (Negative) Urine Urobilinogen (Negative) mg/dL Ur Leukocyte Kallie ase (Negative) SARS-CoV-2 Ag (Rap id) (Negative) 02/22/21 02/22/21 02/22/21 Range/Units 16:35 16:35 18:21 WBC (4.0-10.0) 10^3/ uL RBC (4.1-5.3) 10^6/u L Hgb (11.5-15.3) g/dL Hct (37.0-47.0) % MCV (81-99) fl MCH (28.0-34.0) pg MCHC (30.0-36.0) g/dL RDW (12.1-15.1) % Plt Count (130-400) 10^3/c mm MPV (7.4-10.4) fL Neut % (Auto) % Lymph % (Auto) % Woods % (Auto) % Eos % (Auto) % Baso % (Auto) % Neut # (Auto) (1.8-7.7) 10^3/u L Lymph # (Auto) (0.8-4.8) 10^3/u L Woods # (Auto) (0.2-0.9) 10^3/u L Eos # (Auto) (0.0-0.8) 10^3/u L Baso # (Auto) (0.0-0.1) 10^3/u L Nucleated RBC % (a uto) % Nucleated RBCs # /100WBC D-Dimer 1.48 H (0-0.59) ug/mIFE U Sodium (136-145) mmol/L Potassium (3.5-5.1) mmol/L Chloride (98-107) mmol/L Carbon Dioxide (22-29) mmol/L Anion Gap (5-19) BUN (8-23) mg/dL Creatinine (0.5-0.9) mg/dL GFR Calculation Glucose (65-115) mg/dL Calculated Osmolal ity (285-295) mOsm/k g Lactate 1.5 (0.5-2.2) mmol/L Calcium (8.5-10.5) mg/dL Total Bilirubin (0.15-1.2) mg/dL AST (0-32) U/L ALT (0-33) U/L Alkaline Phosphata se (35-105) IU/L Troponin T Baselin e (0-10) ng/L Troponin T 120 Min chicken ranch 27.51 H (0-10) ng/L Delta Troponin T -6.49 L (0-10) ABS# Troponin T Hi Sens 6Hr (0-10) ng/L Troponin T Hi Sens 6Hr Delta (0-12) ng/L C-Reactive Protein (0.0-4.9) mg/L NT-Pro-B Natriuret Pep (0-450) pg/mL Total Protein (6.6-8.7) g/dL Albumin (3.5-5.2) g/dL Globulin (1.3-4.6) g/dL Lipase (13-60) U/L Urine Color (Yellow) Urine Appearance (CLEAR) Urine pH (5-7) Ur Specific Gravit y (1.005-1.030) Urine Protein (Negative) Urine Glucose (UA) (Normal) Urine Ketones (Negative) Urine Blood (Negative) Urine Nitrate (Negative) Urine Bilirubin (Negative) Urine Urobilinogen (Negative) mg/dL Ur Leukocyte Kallie ase (Negative) SARS-CoV-2 Ag (Rap id) (Negative) 02/22/21 02/22/21 02/22/21 Range/Units 21:00 21:12 22:52 WBC (4.0-10.0) 10^3/ uL RBC (4.1-5.3) 10^6/u L Hgb (11.5-15.3) g/dL Hct (37.0-47.0) % MCV (81-99) fl MCH (28.0-34.0) pg MCHC (30.0-36.0) g/dL RDW (12.1-15.1) % Plt Count (130-400) 10^3/c mm MPV (7.4-10.4) fL Neut % (Auto) % Lymph % (Auto) % Woods % (Auto) % Eos % (Auto) % Baso % (Auto) % Neut # (Auto) (1.8-7.7) 10^3/u L Lymph # (Auto) (0.8-4.8) 10^3/u L Woods # (Auto) (0.2-0.9) 10^3/u L Eos # (Auto) (0.0-0.8) 10^3/u L Baso # (Auto) (0.0-0.1) 10^3/u L Nucleated RBC % (a uto) % Nucleated RBCs # /100WBC D-Dimer (0-0.59) ug/mIFE U Sodium (136-145) mmol/L Potassium (3.5-5.1) mmol/L Chloride (98-107) mmol/L Carbon Dioxide (22-29) mmol/L Anion Gap (5-19) BUN (8-23) mg/dL Creatinine (0.5-0.9) mg/dL GFR Calculation Glucose (65-115) mg/dL Calculated Osmolal ity (285-295) mOsm/k g Lactate (0.5-2.2) mmol/L Calcium (8.5-10.5) mg/dL Total Bilirubin (0.15-1.2) mg/dL AST (0-32) U/L ALT (0-33) U/L Alkaline Phosphata se (35-105) IU/L Troponin T Baselin e (0-10) ng/L Troponin T 120 Min chicken ranch (0-10) ng/L Delta Troponin T (0-10) ABS# Troponin T Hi Sens 6Hr 24.66 H (0-10) ng/L Troponin T Hi Sens 6Hr Delta -9.34 L (0-12) ng/L C-Reactive Protein (0.0-4.9) mg/L NT-Pro-B Natriuret Pep (0-450) pg/mL Total Protein (6.6-8.7) g/dL Albumin (3.5-5.2) g/dL Globulin (1.3-4.6) g/dL Lipase (13-60) U/L Urine Color Yellow (Yellow) Urine Appearance Clear (CLEAR) Urine pH 5 (5-7) Ur Specific Gravit y 1.010 (1.005-1.030) Urine Protein Neg (Negative) Urine Glucose (UA) Norm (Normal) Urine Ketones Negative (Negative) Urine Blood Neg (Negative) Urine Nitrate Negative (Negative) Urine Bilirubin Neg (Negative) Urine Urobilinogen Norm (Negative) mg/dL Ur Leukocyte Kallie ase Negative (Negative) SARS-CoV-2 Ag (Rap id) Positive H (Negative) Imaging Data^: CTA Chest: Attestation: I personally reviewed and interpreted this imaging study as follows: Radiologist's impression: [address] [id number] Scan ReportSigned Patient: Danyelle Hanna AUnit #: [id number]: 9Acct#:[id number] e/Sex: 80 / FADM Date: 02/22/21Loc: ERRoom/Bed:Attending Dr: Ordering Provider/Ordering MD: Miko Cortez MD, [facility] of Service: 02/22/21 Procedure(s): CT angio chest PE protcl [id number] Accession Number(s): [id number] Report Number: [id number] PROCEDURE INFORMATION: Exam: CTA Chest With Contrast Exam date and time: 02/22/2021 7:52 PM Age: 80 years old Clinical indication: Shortness of breath; Patient HX: Sob/hypotension/elevated ddimer. History of chf. ; Additional info: Hypotension, SOB TECHNIQUE: Imaging protocol: Computed tomographic angiography of the chest with contrast. 3D rendering (Not supervised by radiologist): MIP and/or 3D reconstructed images were created by the technologist. Radiation optimization: All CT scans at this facility use at least one of these dose optimization techniques: automated exposure control; mA and/or kV adjustment per patient size (includes targeted exams where dose is matched to clinical indication); or iterative reconstruction. Contrast material: VISI 320; Contrast volume: 63 ml; Contrast route: INTRAVENOUS (IV); COMPARISON: CT angio chest PE protcl [id number] 06/23/2020 6:45 PM RADIATION DOSE METRICS: Total DLP (mGy-cm): 654.02 FINDINGS: Pulmonary arteries: Normal. No pulmonary emboli. Aorta: Unremarkable. No aortic aneurysm. No aortic dissection. Lungs: Patchy ground-glass opacities in the upper lobes, left greater than right. Scattered scarring and atelectasis in both lungs. Multiple calcified granulomas in both lungs. Pleural spaces: Unremarkable. No pneumothorax. No pleural effusion. Heart: Unremarkable. No cardiomegaly. No pericardial effusion. Lymph nodes: Calcified mediastinal and hilar lymph nodes. Prominent mediastinal and hilar lymph nodes are most likely reactive. Liver: Calcified granulomas in the liver. Gallbladder and bile ducts: Contracted gallbladder. Spleen: Calcified granulomas in the spleen. Stomach and bowel: Duodenal diverticulum. Bones/joints: Thoracolumbar scoliosis. Lumbar fusion hardware. No fracture identified. Severe degenerative changes of the left shoulder joint. Soft tissues: Unremarkable. CT/CT angio chest PE protcl [id number] IMPRESSION: 1. No evidence for pulmonary embolus. 2. Ground-glass opacities in the upper lobes are suspicious for pneumonia. Radiation Dose CTDIVOL = (mGy): DLP = 654.02 (mGy-cm) Dictated By:Mahi Crowe By:Mahi Crowe Date/Time:02/22/21D/ 49 US Vascular: Attestation: I personally reviewed and interpreted this imaging study as follows: Radiologist's impression: [address] [id number] ReportSigned Patient: Danyelle Hanna AUnit #: [id number]: 1940cct#: [id number]/Sex: 80 / FADM Date: 02/22/21Loc: ERRoom/Bed:Attending Dr: Ordering Provider/Ordering MD: Miko Cortez MD, [facility] [place] of Service: 02/22/21 Procedure(s): [place] [address] Accession Number(s): [id number] Report Number: [id number] PROCEDURE INFORMATION: Exam: US Duplex Left Lower Extremity Veins, Limited Exam date and time: 02/22/2021 4:51 PM Age: 80 years old Clinical indication: Pain; Leg, upper and leg, lower; Left; Additional info: Calf pain, swelling TECHNIQUE: Imaging protocol: Real-time Duplex ultrasound of the Left Lower Extremity with 2-D cifuentes scale, color Doppler flow and spectral waveform analysis with image documentation. Limited exam focused on the left lower extremity veins. COMPARISON: No relevant prior studies available. FINDINGS: Left deep veins: Unremarkable. The common femoral, femoral, proximal profunda femoral and popliteal veins are patent without thrombus. Normal Doppler waveforms. Normal compressibility and/or augmentation response. Left superficial veins: Unremarkable. Saphenofemoral junction is patent without thrombus. Soft tissues: Unremarkable. US/[place] [id number] IMPRESSION: Negative for deep venous thrombosis. Dictated By:Anthony Mar MDSigned By:Anthony Mar MDSigned Date/Time:02/22/211735DD/ 34 CXR: Attestation: I personally reviewed and interpreted this imaging study as follows: Radiologist's impression: [place] [address] [place], [place] [address]josé luis.[place], [place] [address]CLhf ReportSigned Patient: Danyelle Hanna AUnit #: [id number]: 1940cct#:[id number]/Sex: 80 / FADM Date: 02/22/21Loc: ERRoom/Bed:Attending Dr: Ordering Provider/Ordering MD: Miko Cortez MD, [facility] [place] of Service: 02/22/21 Procedure(s): XR chest 1V portable [id number] Accession Number(s): [id number] Report Number: [id number] PROCEDURE INFORMATION: Exam: XR Chest Exam date and time: 02/22/2021 4:50 PM Age: 80 years old Clinical indication: Shortness of breath; Additional info: SOB TECHNIQUE: Imaging protocol: XR of the chest. Views: 1 view. COMPARISON: CR XR chest 2V insp/exp [id number] 12/08/2020 9:09 AM FINDINGS: Lungs: Emphysematous changes. Bibasilar atelectasis versus minimal infiltrate. Pleural spaces: Unremarkable. No pleural effusion. No pneumothorax. Heart/Mediastinum: Cardiomegaly. Bones/joints: Unremarkable. XR/XR chest 1V portable [id number] IMPRESSION: 1. Cardiomegaly. 2. Emphysematous changes. 3. Bibasilar atelectasis versus minimal infiltrate. Dictated By:Anthony Mar MDSigned By:Anthony Mar MDSigned Date/Time:02/22/21 1741DD/ 1740 EKG Data^: EKG 1: Attestation: I personally reviewed and interpreted this EKG as follows: EKG interpretation date: 02/22/21 EKG interpretation time: 16:21 Interpretation: sinus rhythm HR 88 bpm LAD L[address]B No ST changes Computer generated interpretation: Chest X-Ray 02/22/21 16:50 IMPRESSION: 1. Cardiomegaly. 2. Emphysematous changes. 3. Bibasilar atelectasis versus minimal infiltrate. Venous Duplex 02/22/21 16:51 IMPRESSION: Negative for deep venous thrombosis. Chest CTA 02/22/21 19:52 IMPRESSION: 1. No evidence for pulmonary embolus. 2. Ground-glass opacities in the upper lobes are suspicious for pneumonia. Radiation Dose CTDIVOL = (mGy): DLP = 654.02 (mGy-cm) EKG 2: Attestation: I personally reviewed and interpreted this EKG as follows: EKG interpretation date: 02/22/21 EKG interpretation time: 18:14 Prior EKG tracings: available for review Interpretation: sinus rhythm HR [address] changes. No significant change from earlier. Computer generated interpretation: Chest X-Ray 02/22/21 16:50 IMPRESSION: 1. Cardiomegaly. 2. Emphysematous changes. 3. Bibasilar atelectasis versus minimal infiltrate. Venous Duplex 02/22/21 16:51 IMPRESSION: Negative for deep venous thrombosis. Chest CTA 02/22/21 19:52 IMPRESSION: 1. No evidence for pulmonary embolus. 2. Ground-glass opacities in the upper lobes are suspicious for pneumonia. Radiation Dose CTDIVOL = (mGy): DLP = 654.02 (mGy-cm) Discharge Plan Discharge Patient Disposition: Admitted As Inpatient Admit Provider: Cleo Snow Clinical Impression: Pneumonia due to 2019 novel coronavirus, Alzheimer disease, Acute kidney injury superimposed on CKD, Orthostatic hypotension Condition: Stable Discharge Orders: Discharge Order (Routine); Ordered 02/24/21 Ordered By: Laureano Henson Discharge Diet: Cardiac Discharge Activity: Increase activity as tolerated, Limit activity as instructed and Oxygen as instructed Coding Level of Care Code ED [employer] for Chg Fwd Exam Comprehensive
[2021-02-22] MEDS: sodium chloride 0.9% 500 ML IV (16:59)
[2021-02-22 17:02] LABS: Basophils % 0.3 %; Eosinophils # 0.2 10^3/uL (0.0-0.8); Eosinophils % 2.5 %; Hematocrit 36.6 % (37.0-47.0); Hemoglobin 11.1 g/dL (11.5-15.3); Lymphocytes # 1.1 10^3/uL (0.8-4.8); Lymphocytes % 15.9 %; Mean Corpuscular HGB Conc 30.3 g/dL (30.0-36.0); Mean Corpuscular Hemoglobin 27.1 pg (28.0-34.0); Mean Corpuscular Volume 89.3 fl (81-99); Mean Platelet Volume 11.9 fL (7.4-10.4); Monocytes # 0.6 10^3/uL (0.2-0.9); Monocytes % 8.6 %; Neutrophils # 5.12 10^3/uL (1.8-7.7); Neutrophils % 71.9 %; Nucleated Red Blood Cells % 0 %; Platelet Count 153 10^3/cmm (130-400); Red Cell Distribution Width 15.8 % (12.1-15.1); White Blood Count 7.1 10^3/uL (4.0-10.0)
[2021-02-22 17:10] LABS: D Dimer 1.48 ug/mIFEU (0-0.59)
[2021-02-22 17:18] LABS: Lactate (Lactic Acid level) 1.5 mmol/L (0.5-2.2); Troponin(5th) Baseline 34 ng/L (0-10)
[2021-02-22 17:26] LABS: Alanine Aminotransferase 7 U/L (0-33); Albumin Level 3.7 g/dL (3.5-5.2); Alkaline Phosphatase 71 IU/L (35-105); Anion Gap 17.6 (5-19); Aspartate Amino Transferase 17 U/L (0-32); Blood Urea Nitrogen 27 mg/dL (8-23); C Reactive Protein 41.7 mg/L (0.0-4.9); Calcium 8.7 mg/dL (8.5-10.5); Carbon Dioxide 22 mmol/L (22-29); Chloride 99 mmol/L (98-107); Globulin 3.2 g/dL (1.3-4.6); Glucose 124 mg/dL (65-115); Lipase 79 U/L (13-60); NT Pro B Type Natriuretic Pept 3722 pg/mL (0-450); Osmolality Calculated 285 mOsm/kg (285-295); Potassium 4.6 mmol/L (3.5-5.1); Sodium 134 mmol/L (136-145); Total Bilirubin 0.2 mg/dL (0.15-1.2); Total Protein 6.9 g/dL (6.6-8.7)
[2021-02-22 18:46] LABS: Troponin 5 2HR 27.51 ng/L (0-10)
--- NOTE | 2021-02-22 18:48 | ECG_ITS ---
[facility] Test Date: 2021-02-22 Pat Name: Danyelle Hanna Department: Room: 208 Gender: Female [employer]: : 1940 Requested By: Miko Cortez I Order Number: [id number] Reading MD: Santos Hall M.D. Measurements Intervals Dennis Rate: 83 P: 84 AR: 154 QRS: -41 QRSD: 138 T: 75 QT: 365 QTc: 430 Interpretive Statements SINUS RHYTHM INTRAVENTRICULAR CONDUCTION DELAY [130+ ms QRS DURATION] POSSIBLE ANTERIOR MYOCARDIAL INFARCTION , OF INDETERMINATE AGE [30 ms Q WAVE IN V3/V4, OR R < 0.2 mV IN V4] INFERIOR MYOCARDIAL INFARCTION , PROBABLY OLD [40+ ms Q WAVE AND/OR ST/T ABNORMALITY IN II/aVF] Compared to ECG 02/22/2021 16:21:39 Intraventricular conduction delay now present Myocardial infarct finding now present Left-axis deviation no longer present Left bundle-branch block no longer present Electronically Signed On 02-23-2021 6:59:44 CDT by Santos Hall M.D. [id number]
[2021-02-22 19:09] LABS: Troponin 5 2HR Delta -6.49 ABS# (0-10)
--- NOTE | 2021-02-22 19:41 | PC.NURSE ---
pt rounded on at this time. pt repositioned and food tray set up.
--- NOTE | 2021-02-22 19:52 | CTR_ITS ---
PROCEDURE INFORMATION: Exam: CTA Chest With Contrast Exam date and time: 02/22/2021 7:52 PM Age: 80 years old Clinical indication: Shortness of breath; Patient HX: Sob/hypotension/elevated ddimer. History of chf. ; Additional info: Hypotension, SOB TECHNIQUE: Imaging protocol: Computed tomographic angiography of the chest with contrast. 3D rendering (Not supervised by radiologist): MIP and/or 3D reconstructed images were created by the technologist. Radiation optimization: All CT scans at this facility use at least one of these dose optimization techniques: automated exposure control; mA and/or kV adjustment per patient size (includes targeted exams where dose is matched to clinical indication); or iterative reconstruction. Contrast material: VISI 320; Contrast volume: 63 ml; Contrast route: INTRAVENOUS (IV); COMPARISON: CT angio chest PE protcl [id number] 06/23/2020 6:45 PM RADIATION DOSE METRICS: Total DLP (mGy-cm): 654.02 FINDINGS: Pulmonary arteries: Normal. No pulmonary emboli. Aorta: Unremarkable. No aortic aneurysm. No aortic dissection. Lungs: Patchy ground-glass opacities in the upper lobes, left greater than right. Scattered scarring and atelectasis in both lungs. Multiple calcified granulomas in both lungs. Pleural spaces: Unremarkable. No pneumothorax. No pleural effusion. Heart: Unremarkable. No cardiomegaly. No pericardial effusion. Lymph nodes: Calcified mediastinal and hilar lymph nodes. Prominent mediastinal and hilar lymph nodes are most likely reactive. Liver: Calcified granulomas in the liver. Gallbladder and bile ducts: Contracted gallbladder. Spleen: Calcified granulomas in the spleen. Stomach and bowel: Duodenal diverticulum. Bones/joints: Thoracolumbar scoliosis. Lumbar fusion hardware. No fracture identified. Severe degenerative changes of the left shoulder joint. Soft tissues: Unremarkable. CT/CT angio chest PE protcl [id number] IMPRESSION: 1. No evidence for pulmonary embolus. 2. Ground-glass opacities in the upper lobes are suspicious for pneumonia. Radiation Dose CTDIVOL = (mGy): DLP = 654.02 (mGy-cm)
[2021-02-22] MEDS: iodixanol 320 mg/mL 100mL Btl IV (20:16)
[2021-02-22 21:16] LABS: Add Urine Microscopic? NO; Charge for UA Resulting for Rev
[2021-02-22 21:23] LABS: Bilirubin Urine Neg (Negative); Blood Urine Neg (Negative); Glucose Urine UA Norm (Normal); Ketones Urine Negative (Negative); Leukocyte Esterase Urine Negative (Negative); Nitrate Urine Negative (Negative); Protein Urine Neg (Negative); Urine Appearance Clear (CLEAR); Urine Color Yellow (Yellow); Urobilinogen Urine Norm (Negative); pH Urine 5 (5-7)
[2021-02-22] MEDS: levofloxacin-dextrose 5 % 500 MG/100 ML PREMIX 100 MG IV (21:38)
[2021-02-22 21:52] LABS: SARS Covid-2 Antigen Positive (Negative)
[2021-02-22] MEDS: remdesivir 200 MG in sodium chloride 0.9% (100 ml) 100 ML 100 MG IV (23:04)
[2021-02-22] MEDS: dexamethasone 10 mg/mL INJ 6 MG IVP (23:08)
[2021-02-22 23:27] LABS: Troponin 5 6HR 24.66 ng/L (0-10)
[2021-02-22 23:30] LABS: Troponin 5 6HR Delta -9.34 ng/L (0-12)
[2021-02-23] VITALS (16 sets, daily range): BP systolic 92–122; BP diastolic 56–80; PULSE 63–96; RESP 17–20; TEMP 36.6–36.9; O2SAT 94–98
--- NOTE | 2021-02-23 00:34 | PC.NURSE ---
this nurse flushed 30 cc after remdesivir was infused. this nurse also right tilted pt with a pillow.
--- NOTE | 2021-02-23 01:05 | P.HP_ITS ---
Providers/Chief Complaint Admitting Physician: Cleo Snow MD Primary Care Provider: Alba Dueñas MD Chief Complaint: N/V, SWEATING, B/P LOW, O2 LOW History of Present Illness History obtained by talking to daughter Shalini (she is ER nurse) as patient has dementia. Danyelle Hanna is a 80 year old female With PMH dementia, presumed COPd, CHF, cardiomyopathy with lvef 35%, past h/o NEERAJ supposed to be on CPAP but non complaint. Last admitted to the hospital in 11/2020 for pneumonia at which time she was discharged with 2lpm supplemental 02 via NC. reportedly this was titrate d off since discharge. Presents today with increasing generalized weakness, hypotension at home with systolic BP in 70s range, suspected to be orthostatic in nature as patient reportedly becomes diaphoretic and pre syncopal with attempting to stand up. Home 02 also noted to be less than 90%, in the ER requiring 2.5-4lpm supplemental 02. W/up has revealed + covid Ag, CTA chest with GGOs suspicious for pneumonia. No PE. Review of Systems General: Reports: ROS unobtainable due to medical condition Medications/Allergies Home Medications Medication Instructions Recorded Confirmed Last Taken Type ondansetron HCl [Zofran] 4 mg PO Q6H PRN #14 tab 08/08/19 02/22/21 Unknown Rx levothyroxine 50 mcg tablet 50 mcg PO QAM 11/14/19 02/22/21 02/22/21 History omeprazole 20 mg tablet,delayed 20 mg PO BID 11/14/19 02/22/21 02/22/21 History release memantine 10 mg tablet 10 mg PO BID 7 Days #14 tab 02/13/20 02/22/21 02/22/21 Rx aspirin 325 mg tablet 325 mg PO QAM tab 05/26/20 02/22/21 02/22/21 History carvedilol 6.25 mg tablet 6.25 mg PO BID #180 tab 06/16/20 02/22/21 02/22/21 Rx nitroglycerin 0.4 mg sublingual 0.4 mg SUBLINGUAL Q5M PRN #25 tab 11/26/20 02/22/21 Unknown Rx tablet acetaminophen 1,000 mg PO PRN 12/08/20 02/22/21 Unknown History donepezil [Aricept] 10 mg PO QAM 12/08/20 02/22/21 02/22/21 History isosorbide mononitrate 60 mg PO QAM 12/08/20 02/22/21 02/22/21 History theophylline 400 mg PO QAM 12/08/20 02/22/21 02/22/21 History furosemide [Lasix] 40 mg PO QAM #30 tab 12/09/20 02/22/21 02/22/21 Rx ipratropium-albuterol 3 ml INHALATION Q6H PRN #90 ml 12/09/20 02/22/21 Unknown Rx lisinopril 5 mg PO DAILY #30 tab 12/09/20 02/22/21 02/22/21 Rx potassium chloride 10 meq PO DAILY #30 cap 12/09/20 02/22/21 02/22/21 Rx venlafaxine 150 mg 150 mg PO DAILY #90 cap 01/21/21 02/22/21 02/22/21 Rx capsule,extended release 24 hr glucos sul [id number] 1 cap PO DAILY 02/22/21 02/22/21 02/22/21 History [Glucosamine Chondroitin] Allergies Allergy/AdvReac Type Severity Reaction Status Date / Time azithromycin Allergy Unknown Verified 02/22/21 16:13 cephalexin [From Keflex] Allergy Unknown Verified 02/22/21 16:13 Penicillins Allergy Unknown Verified 02/22/21 16:13 PFSH Acute PFSH: Medical History Alzheimer disease 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 CHF (congestive heart failure) CKD (chronic kidney disease) DDD (degenerative disc disease) GERD (gastroesophageal reflux disease) History of skin cancer treated with excision Hypertension Hypothyroidism Nonischemic cardiomyopathy NEERAJ (obstructive sleep apnea) Osteoporosis Surgical History H/O carpal tunnel repair H/O cataract extraction H/O: hysterectomy Family History Father CAD (coronary artery disease) Myocardial infarction Mother CAD (coronary artery disease) Myocardial infarction Sister CAD (coronary artery disease) Myocardial infarction Brother CAD (coronary artery disease) Myocardial infarction Daughter Cancer COLON Social History Smoking and tobacco status: never smoked Alcohol intake: never Household members: family Marital status: / Vitals/I&O/Wt Last Vital Signs Temp 97.5 F L 02/22/21 16:13 Pulse 87 02/23/21 00:11 Resp 19 H 02/23/21 00:11 BP 92/58 02/23/21 00:11 Pulse Ox 98 02/23/21 00:11 02/22/21 02/22/21 02/23/21 14:59 22:59 06:59 Intake Total 600 / 600 100 / 700 Balance 600 / 600 100 / 700 Weight last 48 hrs Weight 81.647 kg Physical Exam Narrative: EXAM NARRATIVE: General: No acute distress, AO x1 HEENT: PERRLA, pupils bilaterally equal and reactive, pallors not present Chest: Normal vesicular breath sounds CVS: S1-S2 regular, no murmurs Abdomen: Soft, nontender, no organomegaly, bowel sounds present Neuro: No focal deficits, no facial deformity, AO x1 Extremities: no edema, clubbing or cyanosis Data : 02/22/21 16:35 02/22/21 16:35 A&P Assessment and plan (1) COVID-19: admit to med/surg Remdisivir 200mg iv x 1 followed by 100mg iv daily dexamethasone 6mg IVP daily duoneb q6h, budesonide q12h empiric levofloxacin Flutter valve/spirometer at bedside trend inflammatory markers including CRP, D dimer CTA negative for PE. GGOD noted in upper lobes. supplemental 02 to keep sat >90% Status: Acute (2) COPD (chronic obstructive pulmonary disease): steroids and nebulization as above Status: Acute Qualifiers: COPD type: unspecified COPD Qualified Code(s): J44.9 - Chronic obstructive pulmonary disease, unspecified (3) CHF (congestive heart failure): hypotensive in 70s at home, orthostatsic symptoms noted in ER. Gentle IVF hydration at NS 50 cc/hr, monitor for signs of volume overload Hold lasix and antihypertensives for now check orthostatics BID Status: Chronic Qualifiers: Heart failure chronicity: acute on chronic Heart failure type: unspecified Qualified Code(s): I50.9 - Heart failure, unspecified Additional A&P Information DVt ppx: lovenox DNR/DNI Attestations Medical Necessity Statement*: >2midnight admission anticipated for above defined care Coding Level of Care Code Acute Porcelain Technician for [facility] Diagnoses COVID-19 U07.1 COPD (chronic obstructive pulmonary disease) J44.9 COPD type: unspecified COPD CHF (congestive heart failure) I50.9 Heart failure chronicity: acute on chronic Heart failure type: unspecified
[2021-02-23] MEDS: sodium chloride 0.9% 1,000 ML 50 ML IV (02:35)
[2021-02-23] MEDS: enoxaparin 40 mg/0.4 mL Syringe SUBCUT (05:35)
[2021-02-23] MEDS: donepezil 5 MG Tablet 10 MG PO (05:35)
[2021-02-23] MEDS: levothyroxine 50 mcg Tablet PO (05:35)
[2021-02-23] MEDS: venlafaxine ER (24HR) 150 mg Capsule PO (08:41)
[2021-02-23] MEDS: carvedilol 6.25 mg Tablet PO ×2 (08:41→17:47)
[2021-02-23] MEDS: levoFLOXacin 750 mg Tablet 500 MG PO (08:41)
[2021-02-23] MEDS: pantoprazole DR 40 mg Tablet PO (08:41)
[2021-02-23] MEDS: lisinopril 5 mg Tablet PO (08:41)
[2021-02-23] MEDS: memantine 5 mg tablet 10 MG PO ×2 (08:41→17:47)
--- NOTE | 2021-02-23 08:46 | PC.CHAP ---
Pastoral Care Encounter/Spiritual Assessment Type of Contact [] Declined plodding machine operator visit [] Patient/Family/Request visit [] Outpatient visit [] Follow-up visit [] Physician referral [] Code/Alert [x] Routine visit [] Staff referral [] Actively dying [] Patient sleeping [] Family support [] [] Out of room [] Palliative care [] [] Receiving care in room [] Pre-surgical visit [] Trauma [] Long length of stay [] ICU visit [x] Other: 2a served breakfast Relational/Emotional Strength [] Patient feels connected with others/family/visitors/staff [] Distress [] Loneliness/isolation [] Abandonment Spirituality of Patient [] Person of Bernice [] Attends Scientologist of their Bernice [] Believes in Prayer [] Reads Bible or Mandaeism materials [] There are Spiritual issues to be addressed Bar Attendant Interventions [x] Prayer [] Active listening [] Non-anxious presence [] Spiritual/emotional support [] Crisis/trauma care [] Spiritual counseling [] Bereavement support [] Provided bereavement packet [] Provided Bible/devotional materials [] Provided toy/stuffed animal, coloring book to patient or family member [] Provided Communion [] Anointing/[place] [] Salvation [x] Completed spiritual assessment [] Other: Impact on Illness or Injury [] Angry [] Fearful [] Anxious [] Often cries [] Exhaustion [] Unable to work [] Unable to attend mandaeism [] Unable to walk/stand [] Unable to read [] Unable to drive [] Unable to eat/drink [] Unable to sleep [] Unable to be with family [] Patient intubated [] Other: Summary Time spent with patient
[2021-02-23] MEDS: remdesivir 100 MG in sodium chloride 0.9% (100 ml) 100 ML IV (17:47)
--- NOTE | 2021-02-23 18:24 | PC.RESP ---
PULMONARY REHAB INFORMATION SENT TO PATIENT.
--- NOTE | 2021-02-23 18:49 | P.PN_ITS ---
Subjective Subjective: Interval history: She reports she is doing okay, but is not entirely sure. She does not remember where exactly she is, but knows she is in [place]. Does not remember the year. Denies being significantly short of breath. Denies chest pain. Denies headache, nausea vomiting or diarrhea. Vitals/I&O/Wt Last Vital Signs Temp 97.9 F 02/23/21 16:00 Pulse 88 02/23/21 16:00 Resp 18 02/23/21 16:00 BP 99/61 02/23/21 16:00 Pulse Ox 97 02/23/21 16:00 02/23/21 02/23/21 02/23/21 06:59 14:59 22:59 Intake Total 100 / 700 240 / 240 Output Total 300 / 300 Balance 100 / 700 -60 / -60 Weight last 48 hrs Weight 81.647 kg Physical Exam Const: COMMON NORMALS: no acute distress and alert; negative for patient oriented x3 GENERAL APPEARANCE: cooperative ORIENTATION/CONSCIOUSNESS: Yes awake HENMT: COMMON NORMALS: oropharynx normal Neck/C-Spine: COMMON NORMALS: no JVD Resp: COMMON NORMALS: normal respiratory effort and clear to auscultation bilaterally AUSCULTATION: clear to auscultation bilaterally Cardio: COMMON NORMALS: no JVD, regular rhythm, S1 normal heart sound present, S2 normal heart sound present and No murmurs present (Cardio) RHYTHM: regular rhythm HEART SOUNDS: S1 normal heart sound present and S2 normal heart sound present GI: COMMON NORMALS: Normal to inspection, nondistended, normoactive bowel sounds present, Soft to palpation and non-tender PALPATION: Yes Soft to palpation Extremity: COMMON NORMALS: no joint enlargement and no pedal edema Neuro: COMMON NORMALS: moves all extremities; negative for patient oriented x3 SENSORIUM/ORIENTATION: Yes alert Skin: COMMON NORMALS: no rashes or lesions noted GENERAL SKIN EXAM: no rashes or lesions noted Data : 02/22/21 16:35 02/22/21 16:35 A&P Assessment and plan (1) COVID-19: She so far has done fairly well. She is requiring oxygen, however, so far oxygen garment has not quite increased. We will reassess again overnight, as well as repeat D-dimer, inflammatory markers. Has not had any evidence of DVT or PE. Continues on prophylactic Lovenox. At this time continue remdesivir, Decadron. Discussed with her daughter. In case continues to do well, perhaps cautious return home could be considered with oxygen. Depending on D-dimer level, as she is not particularly mobile, with her age, may be at increased risk of VTE, and so weighing against risk of bleeding, could consider continuing some prophylactic dose Lovenox. Continue duoneb q6h, budesonide q12h empiric levofloxacin Flutter valve/spirometer at bedside Status: Acute (2) COPD (chronic obstructive pulmonary disease): steroids and nebulization as above Status: Acute Qualifiers: COPD type: unspecified COPD Qualified Code(s): J44.9 - Chronic obstructive pulmonary disease, unspecified (3) CHF (congestive heart failure): DC IV fluid. Stop lisinopril. Stop carvedilol. Mild orthostasis, blood pressure decreasing from laying/sitting from 112 to standing 100 systolic. Maintain fall precautions. Diuretics had not so far been resumed. Status: Chronic Qualifiers: Heart failure type: unspecified Heart failure chronicity: acute on chronic Qualified Code(s): I50.9 - Heart failure, unspecified (4) Acute kidney injury superimposed on CKD: Received fluid challenge. Hold lisinopril. Recheck renal function. Status: Acute Additional A&P Information DVt ppx: lovenox DNR/DNI Attestations Medical Necessity Statement*: Continue admission for assessment management of severe COVID-19 with hypoxia. Coding Level of Care Code Acute Presidential Helicopter Crew Chief for [facility] Diagnoses COVID-19 U07.1 COPD (chronic obstructive pulmonary disease) J44.9 COPD type: unspecified COPD CHF (congestive heart failure) I50.9 Heart failure type: unspecified Heart failure chronicity: acute on chronic Acute kidney injury superimposed on CKD N17.9; N18.9
[2021-02-24] VITALS (11 sets, daily range): BP systolic 103–108; BP diastolic 56–74; PULSE 67–99; RESP 16–20; TEMP 36.4–36.9; O2SAT 85–97
[2021-02-24] MEDS: dexamethasone 4 mg/mL INJ 6 MG IVP (02:03)
[2021-02-24] MEDS: donepezil 5 MG Tablet 10 MG PO (05:35)
[2021-02-24] MEDS: levothyroxine 50 mcg Tablet PO (05:36)
[2021-02-24] MEDS: enoxaparin 30 mg/0.3 mL Syringe SUBCUT (05:36)
[2021-02-24 06:28] LABS: Basophils % 0.3 %; Hematocrit 35.1 % (37.0-47.0); Hemoglobin 10.5 g/dL (11.5-15.3); Lymphocytes # 0.5 10^3/uL (0.8-4.8); Lymphocytes % 15.3 %; Mean Corpuscular HGB Conc 29.9 g/dL (30.0-36.0); Mean Corpuscular Volume 90.2 fl (81-99); Mean Platelet Volume 11.1 fL (7.4-10.4); Monocytes # 0.3 10^3/uL (0.2-0.9); Monocytes % 8.2 %; Neutrophils # 2.66 10^3/uL (1.8-7.7); Neutrophils % 75.4 %; Nucleated Red Blood Cells % 0 %; Platelet Count 138 10^3/cmm (130-400); Red Blood Count 3.89 10^6/uL (4.1-5.3); Red Cell Distribution Width 15.7 % (12.1-15.1); White Blood Count 3.5 10^3/uL (4.0-10.0)
[2021-02-24] MEDS: ipratropium-albuterol 3 mL Neb INHALATION ×2 (08:00→14:05)
[2021-02-24] MEDS: budesonide 0.5 mg/2 mL Neb INHALATION (08:00)
--- NOTE | 2021-02-24 08:35 | PC.CHAP ---
Pastoral Care Encounter/Spiritual Assessment Type of Contact [] Declined slab lifting supervisor visit [] Patient/Family/Request visit [] Outpatient visit [] Follow-up visit [] Physician referral [] Code/Alert [x] Routine visit [] Staff referral [] Actively dying [x] Patient sleeping [] Family support [] [] Out of room [] Palliative care [] [] Receiving care in room [] Pre-surgical visit [] Trauma [] Long length of stay [] ICU visit [x] Other: 2a served breakfast Relational/Emotional Strength [] Patient feels connected with others/family/visitors/staff [] Distress [] Loneliness/isolation [] Abandonment Spirituality of Patient [] Person of Bernice [] Attends Catholic of their Bernice [] Believes in Prayer [] Reads Bible or Worship materials [] There are Spiritual issues to be addressed Distillery Supervisor Interventions [x] Prayer [] Active listening [] Non-anxious presence [] Spiritual/emotional support [] Crisis/trauma care [] Spiritual counseling [] Bereavement support [] Provided bereavement packet [] Provided Bible/devotional materials [] Provided toy/stuffed animal, coloring book to patient or family member [] Provided Communion [] Anointing/[place] [] Salvation [x] Completed spiritual assessment [] Other: Impact on Illness or Injury [] Angry [] Fearful [] Anxious [] Often cries [] Exhaustion [] Unable to work [] Unable to attend jewish [] Unable to walk/stand [] Unable to read [] Unable to drive [] Unable to eat/drink [] Unable to sleep [] Unable to be with family [] Patient intubated [] Other: Summary Time spent with patient
[2021-02-24] MEDS: levoFLOXacin 500 mg Tablet PO (08:53)
[2021-02-24] MEDS: memantine 5 mg tablet 10 MG PO (08:54)
[2021-02-24] MEDS: pantoprazole DR 40 mg Tablet PO (08:55)
[2021-02-24] MEDS: venlafaxine ER (24HR) 150 mg Capsule PO (08:55)
[2021-02-24 14:44] LABS: D Dimer 1.12 ug/mIFEU (0-0.59)
[2021-02-24 14:53] LABS: Anion Gap 18.1 (5-19); Blood Urea Nitrogen 24 mg/dL (8-23); Calcium 8.8 mg/dL (8.5-10.5); Carbon Dioxide 20 mmol/L (22-29); Chloride 104 mmol/L (98-107); Glucose 101 mg/dL (65-115); Osmolality Calculated 288 mOsm/kg (285-295); Potassium 5.1 mmol/L (3.5-5.1); Sodium 137 mmol/L (136-145)
--- NOTE | 2021-02-24 15:00 | PC.RESP ---
RT Shift Note Frequent safety and respiratory rounds continue. Orders completed as indicated. Patient monitored pre and post treatments throughout shift. Patient tolerated treatments appropriately. Condition did not change. Patient and/or life assurance representative educated on respiratory treatment and medications. Patient and/or life assurance representative verbalized understanding. Will continue to monitor patient progress.
--- NOTE | 2021-02-24 18:03 | PM.DCS ---
Discharge Providers Date of Admission: 02/23/21 01:49 Date of Discharge: February 24, 2021 Attending Provider at Admission: Cleo Snow MD Attending Provider at Discharge: Laureano Henson Primary Care Provider: Alba Dueñas MD Diagnoses at Discharge Discharge Diagnosis (1) COVID-19: Status: Acute (2) COPD (chronic obstructive pulmonary disease): Status: Acute Qualifiers: COPD type: unspecified COPD Qualified Code(s): J44.9 - Chronic obstructive pulmonary disease, unspecified (3) CHF (congestive heart failure): Status: Chronic Qualifiers: Heart failure type: unspecified Heart failure chronicity: acute on chronic Qualified Code(s): I50.9 - Heart failure, unspecified (4) Acute kidney injury superimposed on CKD: Status: Acute Reason for Visit Reason for Visit: N/V, SWEATING, B/P LOW, O2 LOW Hospital Course Hospital Course Pleasant 80-year-old lady with history of Alzheimer's dementia, COPD, cardiomyopathy, EF 35%, past history of NEERAJ, not adherent with CPAP, was admitted for assessment management of COVID-19, requiring oxygen support, not normally on oxygen. While in hospital she was treated with Decadron, remdesivir. Empirically treated with Levaquin for possibility of bacterial pneumonia, although bronchospastic is noted bilaterally and upper lobes. No focal consolidation seen. She remained afebrile, without leukocytosis, although with noted some decrease in WBC count, low lymphocytes secondary to COVID-19. She was maintained on prophylactic anticoagulation while in the hospital due to elevated D-dimer. Overall with very limited mobility recently due to Alzheimer's disease, and with her age, COVID-19, elevated risk of VTE. She did very well while in the hospital. Oxygen requirement decreased, and she remained on just 2 L nasal cannula supplemental oxygen maintaining saturations in mid 90s. At presentation with also noted some acute kidney injury again suspected secondary to COVID-19 infection, although also on lisinopril at home, with somewhat soft blood pressures noted, some orthostasis as well. Due to this she is asked to maintain orthostatic precautions. On reassessment orthostatic blood pressure 112 systolic laying and sitting, 100 systolic standing. For now she is asked to hold lisinopril, carvedilol, Imdur, potassium supplementation. She currently has not been fluid overloaded while in the hospital Lasix were held. Not in CHF exacerbation, however, in case of edema, Lasix may need to be resumed. Blood pressure needs continue to be monitored at home. All of this is discussed with her daughter who is taking her in after hospital stay to keep a close eye on her recovery as well as make sure that isolation is maintained. Her daughter is a nurse, and is familiar with the recommendations which we discussed. Discussed also risk of VTE as above, new this daughter is agreeable to continue Xarelto VT prophylaxis for additional 28 days with caution about bleeding risks discussed. Home oxygen evaluation is obtained prior to discharge. She qualifies for 2 L of oxygen which is requested for her. Physical Exam Const: COMMON NORMALS: no acute distress and alert; negative for patient oriented x3 GENERAL APPEARANCE: cooperative ORIENTATION/CONSCIOUSNESS: Yes awake OTHER: She is awake, alert, pleasant, conversant. She knows she is in the hospital. Does not remember why she is here. Denies pain or discomfort. HENMT: COMMON NORMALS: oropharynx normal Neck/C-Spine: COMMON NORMALS: no JVD Resp: COMMON NORMALS: normal respiratory effort and clear to auscultation bilaterally AUSCULTATION: clear to auscultation bilaterally Cardio: COMMON NORMALS: no JVD, regular rhythm, S1 normal heart sound present, S2 normal heart sound present and No murmurs present (Cardio) RHYTHM: regular rhythm HEART SOUNDS: S1 normal heart sound present and S2 normal heart sound present GI: COMMON NORMALS: Normal to inspection, nondistended, normoactive bowel sounds present, Soft to palpation and non-tender PALPATION: Yes Soft to palpation Extremity: COMMON NORMALS: no joint enlargement and no pedal edema Neuro: COMMON NORMALS: moves all extremities; negative for patient oriented x3 SENSORIUM/ORIENTATION: Yes alert Skin: COMMON NORMALS: no rashes or lesions noted GENERAL SKIN EXAM: no rashes or lesions noted Discharge Data Data Completed and Pending: Completed Studies During Hospitalization Category Date Time Status CT angio chest PE protcl [id number] Stat Cat Scan 02/22/21 19:52 Completed XR chest 1V [place] ble [id number] Stat Exams 02/22/21 16:50 [place] [id number] Urgent Ultrasound 02/22/21 16:51 Completed Labs from last 24 hours 02/24/21 02/24/2102/23/21 14:15 06:10 14:15 WBC 3.5 L RBC 3.89 L Hgb 10.5 L Hct 35.1 L MCV 90.2 MCH 27.0 L MCHC 29.9 L RDW 15.7 H Plt Count 138 MPV 11.1 H Neut % (Auto) 75.4 Lymph % (Auto) 15.3 [place] % (Auto) 8.2 Eos % (Auto) 0.0 Baso % (Auto) 0.3 Neut # (Auto) 2.66 Lymph # (Auto) 0.5 L [place] # (Auto) 0.3 Eos # (Auto) 0.0 Baso # (Auto) 0.0 Nucleated RBC % (a uto) 0 Nucleated RBCs # 0.0 D-Dimer 1.12 H Sodium 137 Potassium 5.1 Chloride 104 Carbon Dioxide 20 L Anion Gap 18.1 BUN 24 H Creatinine 1.3 H GFR Calculation Not Reportable Glucose 101 Calculated Osmolal ity 288 Calcium 8.8 Vitals: Last Vital Signs Temp 97.6 F 02/24/21 16:18 Pulse 95 02/24/21 16:18 Resp 20 H 02/24/21 16:18 BP 107/74 02/24/21 16:18 Pulse Ox 95 02/24/21 16:18 Discharge Plan Discharge Patient Disposition: Home Condition: Stable Prescriptions: New benzonatate 100 mg Capsule 100 mg PO TID PRN (Reason: Cough) Qty: 60 RF: 0 Xarelto 10 mg tablet 10 mg PO DAILY 28 Days Qty: 28 RF: 0 levofloxacin 500 mg Tablet 500 mg PO EVERY OTHER DAY Qty: 4 RF: 0 Continued levothyroxine 50 mcg tablet 50 mcg PO QAM RF: 0 aspirin 325 mg tablet 325 mg PO QAM RF: 0 nitroglycerin [Nitrostat] 0.4 mg tablet, sublingual 0.4 mg SUBLINGUAL Q5M PRN (Reason: chest pain) Qty: 25 RF: 3 omeprazole 20 mg tablet,delayed release (DR/EC) 20 mg PO BID RF: 0 memantine [Namenda] 10 mg tablet 10 mg PO BID 7 Days Qty: 14 RF: 0 venlafaxine [Effexor XR] 150 mg capsule,extended release 24hr 150 mg PO DAILY Qty: 90 RF: 1 ondansetron HCl [Zofran] 4 mg tablet 4 mg PO Q6H PRN (Reason: nausea and vomiting) Qty: 14 RF: 0 theophylline 400 mg tablet extended release 24 hr 400 mg PO QAM RF: 0 acetaminophen 500 mg Tablet 1,000 mg PO PRN RF: 0 donepezil [Aricept] 10 mg tablet 10 mg PO QAM RF: 0 ipratropium-albuterol 0.5 mg-3 mg(2.5 mg base)/3 mL solution for nebulization 3 ml inhalation Q6H PRN (Reason: shortness of breath or wheezing) Qty: 90 RF: 0 Glucosamine Chondroitin 550-30-1 mg Capsule 1 cap PO DAILY RF: 0 Changed Lasix 40 mg tablet 40 mg PO QAM PRN (Reason: Edema) Qty: 30 RF: 0 potassium chloride 10 mEq capsule, extended release 10 meq PO DAILY PRN (Reason: With Lasix) Qty: 30 RF: 0 Held carvedilol 6.25 mg tablet 6.25 mg PO BID Qty: 180 RF: 3 Hold Instructions: Resume on 03/03/21. isosorbide mononitrate 60 mg tablet extended release 24 hr 60 mg PO QAM RF: 0 Hold Instructions: Resume on 03/03/21. lisinopril 5 mg Tablet 5 mg PO DAILY Qty: 30 RF: 0 Hold Instructions: Resume on 03/03/21. Discharge Orders: Discharge Order (Routine); Ordered 02/24/21 Ordered By: Laureano Henson Other Ambulatory Orders: DME: Oxygen (Order) Location: None Selected Ordered By: Laureano Henson Referrals: Alba Dueñas MD [Primary Care Provider] - 03/09/21 2:15 pm Discharge Diet: Cardiac Discharge Activity: Increase activity as tolerated, Limit activity as instructed and Oxygen as instructed Patient Instructions: COPD, Benzonatate (By mouth), Levofloxacin (By mouth), Rivaroxaban (By mouth), Viral Pneumonia (GEN), Fall Prevention (GEN) Activity Restrictions/Additional Instructions: Please follow-up with your primary doctor to reassess for improvement after severe COVID-19. Please have your primary doctor reassess your kidney function due to acute kidney injury on chronic kidney disease. Please avoid any NSAIDs like ibuprofen, Aleve, etc. Please hold lisinopril for now until reassessed by your primary doctor and given okay to resume the medication. Please monitor blood pressures at home. Due to soft blood pressure for now hold carvedilol entirely. Please follow-up with your primary doctor for reassessment if it is needed/safe to resume this medication. Please note mild orthostatic hypotension was noted in the hospital with decreased from systolic blood pressure 112 while laying or sitting to 100 mmHg while standing. Please exercise orthostatic precautions. Rise slowly from laying to sitting, sitting to standing. If you get lightheaded or dizzy, sit down or lie down immediately. Please note you are given additional prophylaxis from venous thrombus in the setting of COVID-19 given concern regarding decreased mobility, increased risk of venous thrombosis. Please note this medication may increase your risk of bleeding. Please avoid injury at any cost. Discharge Attestations Time Spent in Discharge Care*: greater than 30 min Quality Metrics Clinical Quality Measures During this hospital stay, did patient experience: None Coding Level of Care Code Acute [facility] note Diagnoses COVID-19 U07.1 COPD (chronic obstructive pulmonary disease) J44.9 COPD type: unspecified COPD CHF (congestive heart failure) I50.9 Heart failure type: unspecified Heart failure chronicity: acute on chronic Acute kidney injury superimposed on CKD N17.9; N18.9
--- NOTE | 2021-02-26 13:45 | PC.SOCIAL ---
discharge follow up call made. spoke with patients daughter. patient isn't requiring oxygen use as much. tolerated a shower today. is still requiring a lot of sleep. patient had prescriptions delivered to room prior to discharge and is taking as prescribed. has follow up appointments made.
== END 2021-02-24 17:45 | disposition home or self-care (01) | DRG 177 ==
LOC: ER 21:38 → ER IP 02-23 01:49 → MS 2A 02-23 02:40
PROVIDERS: Admitting Provider Student in an Organized Health Care Education/Training Program; Emergency Provider Family Medicine; PCP Family Medicine; Visit Provider Internal Medicine
DX: U07.1 COVID-19 (principal); I50.23 Acute on chronic systolic (congestive) heart failure; J15.9 Unspecified bacterial pneumonia; I13.0 Hypertensive heart and chronic kidney disease with heart failure and stage 1 through stage 4 chronic kidney disease, or unspecified chronic kidney disease; I42.8 Other cardiomyopathies; N17.9 Acute kidney failure, unspecified; G30.9 Alzheimer's disease, unspecified; F02.80 Dementia in other diseases classified elsewhere, unspecified severity, without behavioral disturbance, psychotic disturbance, mood disturbance, and anxiety; N18.9 Chronic kidney disease, unspecified; I25.10 Atherosclerotic heart disease of native coronary artery without angina pectoris; Z87.01 Personal history of pneumonia (recurrent); K21.9 Gastro-esophageal reflux disease without esophagitis; Z85.828 Personal history of other malignant neoplasm of skin; E03.9 Hypothyroidism, unspecified; G47.33 Obstructive sleep apnea (adult) (pediatric); M81.0 Age-related osteoporosis without current pathological fracture; Z98.1 Arthrodesis status; I95.1 Orthostatic hypotension; Z66 Do not resuscitate
CPT/HCPCS: 36415; 71045; 71275; 80048; 80053; 81003; 83605; 83690; 83880; 84484; 85025; 85378; 86140; 87426; 93005; 93971; 94640; 94664; 94760; 96365; 96367; 96372; 96375; 96376; 99285; J1100; J1650; J1956; J7030; J7040; J7626; Q9967

== ENCOUNTER 2021-03-06 11:31 | Inpatient (IN) | payer MEDICARE, OTHER, SELFPAY ==
[2021-03-06] VITALS (55 sets, daily range): BP systolic 81–131; BP diastolic 52–78; PULSE 83–137; RESP 15–24; TEMP 36.7–36.8; O2SAT 83–98; BMI 32.9
--- NOTE | 2021-03-06 12:34 | XR_ITS ---
WS: [id number] Portable AP upright chest, 03/06/2021 Clinical Data: cough Comparison: Portable chest, 02/22/2021. Findings: Bilateral patchy pulmonary opacities have developed more on the left than the right and mos tly in the upper lobes. The heart is slightly enlarged. The aortic arch shows calcification and tortu osity. No pneumothorax is seen. There are monitor leads on the chest wall. XR/XR chest 1V portable [id number] Impression: 1. Bilateral patchy pulmonary opacities most consistent with pneumonia. 2. Cardiomegaly and atherosclerosis.
[2021-03-06 12:48] LABS: Basophils % 0.1 %; Eosinophils # 0.3 10^3/uL (0.0-0.8); Eosinophils % 4.1 %; Hemoglobin 11.4 g/dL (11.5-15.3); Lymphocytes # 0.5 10^3/uL (0.8-4.8); Lymphocytes % 7.7 %; Mean Corpuscular HGB Conc 30.8 g/dL (30.0-36.0); Mean Corpuscular Hemoglobin 26.5 pg (28.0-34.0); Mean Platelet Volume 10.2 fL (7.4-10.4); Monocytes # 0.6 10^3/uL (0.2-0.9); Monocytes % 8.7 %; Neutrophils # 5.47 10^3/uL (1.8-7.7); Neutrophils % 78.1 %; Nucleated Red Blood Cells % 0 %; Platelet Count 228 10^3/cmm (130-400); Red Cell Distribution Width 15.3 % (12.1-15.1)
[2021-03-06 13:09] LABS: Alanine Aminotransferase < 5 U/L (0-33); Albumin Level 3.3 g/dL (3.5-5.2); Alkaline Phosphatase 74 IU/L (35-105); Anion Gap 15.6 (5-19); Aspartate Amino Transferase 12 U/L (0-32); Blood Urea Nitrogen 13 mg/dL (8-23); Calcium 8.9 mg/dL (8.5-10.5); Carbon Dioxide 25 mmol/L (22-29); Chloride 100 mmol/L (98-107); Globulin 3.4 g/dL (1.3-4.6); Glucose 83 mg/dL (65-115); Lipase 41 U/L (13-60); Osmolality Calculated 283 mOsm/kg (285-295); Potassium 3.6 mmol/L (3.5-5.1); Sodium 137 mmol/L (136-145); Total Bilirubin 0.3 mg/dL (0.15-1.2); Total Protein 6.7 g/dL (6.6-8.7); Troponin(5th) Baseline 22 ng/L (0-10)
--- NOTE | 2021-03-06 13:34 | ED_ITS ---
HPI - General Adult General: Chief complaint: ER Hold Stated complaint: Dropping HR, Faint Feeling Time Seen by Provider: 03/06/21 12:15 History of Present Illness: HPI narrative: Patient is an 80-year-old female with a history of CAD, hypertension, diabetes, nonischemic cardiomyopathy with EF of 35% presenting to the emergency room with daughter for concerns of tachycardia and bradycardia. Patient's daughter works as a nurse and has been recording patient's heart rates. Patient has been noted to have heart rate as low as in the 20s as high as in the 140s. Patient during these episodes of extreme heart rate changes, is noted to be lightheaded and almost passing out. Note falls or injuries. Patient was recently hospitalized in late January for Covid requiring oxygen and at time, patient was sent home on Xarelto for DVT prophylaxis. Patient says that her respiratory symptom has been improving since been hospitalized for Covid. She denies any chest pain shortness breath, abdominal complaints nausea/vomiting, complaints. Onset: 5 days ago Duration:5 days Location:home Severity:moderate/severe Review of Systems Narrative: Constitutional: No fever, no chills. HEENT: No vision changes CV: No chest pain, +palpitations PULM: no cough, no dyspnea. GI: No abdominal pain, no N/V/D. : No dysuria MSKEL: No muscle pain SKIN: No new rashes, no lesions. NEURO: No headache, no focal weakness. 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 CHF (congestive heart failure) CKD (chronic kidney disease) COPD (chronic obstructive pulmonary disease) DDD (degenerative disc disease) GERD (gastroesophageal reflux disease) History of skin cancer treated with excision Hypertension Hypothyroidism Nonischemic cardiomyopathy NEERAJ (obstructive sleep apnea) Osteoporosis Surgical History H/O carpal tunnel repair H/O cataract extraction H/O: hysterectomy Family History Father CAD (coronary artery disease) Myocardial infarction Mother CAD (coronary artery disease) Myocardial infarction Sister CAD (coronary artery disease) Myocardial infarction Brother CAD (coronary artery disease) Myocardial infarction Daughter Cancer COLON Social History Smoking and tobacco status: never smoked Alcohol intake: never Household members: family Marital status: / Female Reproductive History: Date of last menstrual period: 09/18/20 Physical Exam Narrative: EXAM NARRATIVE: Head: Atraumatic Eyes: PERRL, conjunctiva without injection ENT: Mucous membrane moist NECK: Supple, ROM intact LUNGS: LCTAB, no crackles/rhonchi CV: RRR ABDOMEN: Soft, nontender in all quadrants EXTREMITY: Normal ROM SKIN: No rash or erythema NEURO: Awake and alert, no focal motor deficits PSYCH: Normal mood and affect Course Vital Signs: Vital signs: Vital Signs Temperature 97.5 F L 03/07/21 07:34 Pulse Rate 88 03/07/21 09:32 Respiratory Rate 20 H 03/07/21 09:32 Blood Pressure 116/61 03/07/21 08:28 Pulse Oximetry 92 03/07/21 09:32 MDM - General Adult MDM Narrative: Medical decision making narrative: 80-year-old female with a history of diabetes, hypertension, nonischemic CAD who presents the emergency room for evaluation of lightheadedness and observed episode of tachycardia and bradycardia. On arrival, patient is NSR, with frequent PVCs on the monitor. Patient observed in the emergency room has had a heart rate between 50-60. EKG showing regular sinus rhythm at HT of [106]. Normal axis. No ST elevations/depressions to suggest coronary occlusion. Normal NH, QT intervals. QRS of 140. Occasional PVC's. Work-up within normal limit today. Troponin wnl. XR is consistent with COVID. Patient does not required increased oxsygen. Case was discussed with Dr. Dangelo who recommend admitting patient to stepdown for cardiac monitoring and evaluation of these bradycardic episodes to see whether patient needs a pacemaker. Disposition: Admission Lab Data: Labs: Lab Results 03/06/21 03/06/21 03/06/21 Range/Units 12:30 12:30 12:30 WBC 7.0 (4.0-10.0) 10^3/ uL RBC 4.30 (4.1-5.3) 10^6/u L Hgb 11.4 L (11.5-15.3) g/dL Hct 37.0 (37.0-47.0) % MCV 86.0 (81-99) fl MCH 26.5 L (28.0-34.0) pg MCHC 30.8 (30.0-36.0) g/dL RDW 15.3 H (12.1-15.1) % Plt Count 228 (130-400) 10^3/c mm MPV 10.2 (7.4-10.4) fL Neut % (Auto) 78.1 % Lymph % (Auto) 7.7 % [place] % (Auto) 8.7 % Eos % (Auto) 4.1 % Baso % (Auto) 0.1 % Neut # (Auto) 5.47 (1.8-7.7) 10^3/u L Lymph # (Auto) 0.5 L (0.8-4.8) 10^3/u L [place] # (Auto) 0.6 (0.2-0.9) 10^3/u L Eos # (Auto) 0.3 (0.0-0.8) 10^3/u L Baso # (Auto) 0.0 (0.0-0.1) 10^3/u L Nucleated RBC % (a uto) 0 % Nucleated RBCs # 0.0 /100WBC Sodium 137 (136-145) mmol/L Potassium 3.6 (3.5-5.1) mmol/L Chloride 100 (98-107) mmol/L Carbon Dioxide 25 (22-29) mmol/L Anion Gap 15.6 (5-19) BUN 13 (8-23) mg/dL Creatinine 1.0 H (0.5-0.9) mg/dL GFR Calculation Not Reportable Glucose 83 (65-115) mg/dL Calculated Osmolal ity 283 L (285-295) mOsm/k g Calcium 8.9 (8.5-10.5) mg/dL Total Bilirubin 0.3 (0.15-1.2) mg/dL AST 12 (0-32) U/L ALT < 5 (0-33) U/L Alkaline Phosphata se 74 (35-105) IU/L Troponin T Baselin e 22 H (0-10) ng/L NT-Pro-B Natriuret Pep (0-450) pg/mL Total Protein 6.7 (6.6-8.7) g/dL Albumin 3.3 L (3.5-5.2) g/dL Globulin 3.4 (1.3-4.6) g/dL Lipase 41 (13-60) U/L Theophylline (10-20) ug/ml 03/06/21 03/06/21 Range/Units 12:30 12:30 WBC (4.0-10.0) 10^3/ uL RBC (4.1-5.3) 10^6/u L Hgb (11.5-15.3) g/dL Hct (37.0-47.0) % MCV (81-99) fl MCH (28.0-34.0) pg MCHC (30.0-36.0) g/dL RDW (12.1-15.1) % Plt Count (130-400) 10^3/c mm MPV (7.4-10.4) fL Neut % (Auto) % Lymph % (Auto) % [place] % (Auto) % Eos % (Auto) % Baso % (Auto) % Neut # (Auto) (1.8-7.7) 10^3/u L Lymph # (Auto) (0.8-4.8) 10^3/u L [place] # (Auto) (0.2-0.9) 10^3/u L Eos # (Auto) (0.0-0.8) 10^3/u L Baso # (Auto) (0.0-0.1) 10^3/u L Nucleated RBC % (a uto) % Nucleated RBCs # /100WBC Sodium (136-145) mmol/L Potassium (3.5-5.1) mmol/L Chloride (98-107) mmol/L Carbon Dioxide (22-29) mmol/L Anion Gap (5-19) BUN (8-23) mg/dL Creatinine (0.5-0.9) mg/dL GFR Calculation Glucose (65-115) mg/dL Calculated Osmolal ity (285-295) mOsm/k g Calcium (8.5-10.5) mg/dL Total Bilirubin (0.15-1.2) mg/dL AST (0-32) U/L ALT (0-33) U/L Alkaline Phosphata se (35-105) IU/L Troponin T Baselin e (0-10) ng/L NT-Pro-B Natriuret Pep 1540 H (0-450) pg/mL Total Protein (6.6-8.7) g/dL Albumin (3.5-5.2) g/dL Globulin (1.3-4.6) g/dL Lipase (13-60) U/L Theophylline 2.6 L (10-20) ug/ml Imaging Data^: Other Imaging: Radiologist's impression: [facility] [place], [place] [address]RGbj ReportSigned Patient: Danyelle Hanna AUnit #: [id number]: 1940cct#:[id number]/Sex: 80 / FADM Date: 03/06/21Loc: [facility]/Bed:Attending Dr: Ordering Provider/Ordering MD: Aiyana ePters MD Date of Service: 03/06/21 Procedure(s): XR chest 1V portable [id number] Accession Number(s): [id number] Report Number: [id number] WS: [id number] Portable AP upright chest, 03/06/2021 Clinical Data: cough Comparison: Portable chest, 02/22/2021. Findings: Bilateral patchy pulmonary opacities have developed more on the left than the right and mostly in the upper lobes. The heart is slightly enlarged. The aortic arch shows calcification and tortuosity. No pneumothorax is seen. There are monitor leads on the chest wall. XR/XR chest 1V portable [id number] Impression: 1. Bilateral patchy pulmonary opacities most consistent with pneumonia. 2. Cardiomegaly and atherosclerosis. Dictated By:Charlotte Blue MDSigned By:Charlotte Blue MDSigned Date/Time:03/06 1316DD/ 1313 Discharge Plan Discharge Patient Disposition: Admitted As Inpatient Admit Provider: James Crowder Clinical Impression: COVID-19, Tachycardia, Bradycardia, Light headed Condition: Stable Coding Level of Care Code ED Surveyor [employer] for Ch[facility] Marleny
--- NOTE | 2021-03-06 14:17 | ECG_ITS ---
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 Measurements Intervals [place] Rate: 106 P: 104 VT: 128 QRS: -33 QRSD: 140 T: 112 QT: 347 QTc: 462 Interpretive Statements SINUS TACHYCARDIA WITH OCCASIONAL VENTRICULAR PREMATURE COMPLEXES MARKED LEFT AXIS DEVIATION [QRS AXIS < -30] LEFT BUNDLE BRANCH BLOCK [120+ ms QRS DURATION, 80+ ms Q/S IN V1/V2, 85+ ms R IN I/aVL/V5/V6] Compared to ECG 02/22/2021 18:13:56 Ventricular premature complex(es) now present Left-axis deviation now present Left bundle-branch block now present Sinus rhythm no longer present Intraventricular conduction delay no longer present Myocardial infarct finding no longer present Electronically Signed On 03-06-2021 20:38:18 CDT by Santos Hall M.D. [email or web address] [email or web address] Huizhi Technologymerit health river oaksCheckpoint Surgicalmercy health – [facility].Linktone/store/NU/[id number] vicente
--- NOTE | 2021-03-06 14:29 | PM.CONSULT ---
Providers/Reason For Consult Consulting Physician/Specialty*: Dr. Dangelo, cardiology Reason for Consult*: Dizziness and bradycardia/tachycardia episode; evaluation for PPM Primary Care Provider: Alba Dueñas MD History of Present Illness History of Present Illness Danyelle Hanna is a 80 year old female with past medical history of heart failure with reduced ejection fraction (LVEF=35%), nonischemic cardiomyopathy, hypertension, frequent PVC, obstructive sleep apnea noncompliant with CPAP, COPD, Alzheimer's dementia and recent hospitalization for COVID-19 pneumonia. She was admitted to the hospital February 23- and was treated with Decadron remdesivir as well as empirically with levofloxacin for possible pneumonia. She was noted to have WALT and soft blood pressure and hence lisinopril carvedilol Imdur were held along with Lasix and potassium that were changed to PRN. She was discharged home on Xarelto and 2 L of oxygen. She was admitted with episodes on intermittent bradycardia and tachycardia soon after with HR from 30's to 140's. She has also been having some cough, intermittent desaturation when she is off oxtgen and dizziness. She complains of feeling tired. Labs on arrival with improved renal function. CXR with Bilateral patchy pulmonary opacities have developed more on the left than the right and mostly in the upper lobes. EKG is not scanned in. Review of Systems General: Reports: 10 or more systems reviewed and unremarkable except in HPI and below Const: Reports: fatigue ENMT: Denies: bleeding gums or epistaxis Card: Reports: lightheadedness and dyspnea on exertion; Denies: chest pain, palpitations, edema, swelling of feet/ankles, syncope or orthopnea Resp: Reports: dyspnea and productive cough; Denies: non-productive cough GI: Denies: abdominal pain, nausea, vomiting, diarrhea or hematochezia : Reports: hematuria; Denies: dysuria Musc: Denies: back pain, extremity swelling, joint pain or muscle weakness Skin/Breast: Denies: rash Neuro: Denies: dizziness Psych: Denies: anxiety or depression Endo: Denies: tired all the time Almas/Lymph: Denies: easy bruising or easy bleeding Meds/Allergies Home Medications and Allergies Home Medications Medication Instructions Recorded Confirmed Last Taken Type ondansetron HCl [Zofran] 4 mg PO Q6H PRN #14 tab 08/08/19 03/06/21 Unknown Rx levothyroxine 50 mcg tablet 50 mcg PO DAILY 11/14/19 03/06/21 03/06/21 History omeprazole 20 mg tablet,delayed 20 mg PO BID 11/14/19 03/06/21 03/06/21 History release memantine 10 mg tablet 10 mg PO BID 7 Days #14 tab 02/13/20 03/06/21 03/05/21 Rx aspirin 325 mg tablet 325 mg PO DAILY tab 05/26/20 03/06/21 03/05/21 History nitroglycerin 0.4 mg sublingual 0.4 mg SUBLINGUAL Q5M PRN #25 tab 11/26/20 03/06/21 Unknown Rx tablet acetaminophen 1,000 mg PO PRN 12/08/20 03/06/21 Unknown History donepezil [Aricept] 10 mg PO DAILY 12/08/20 03/06/21 03/05/21 History isosorbide mononitrate 60 mg PO DAILY 12/08/20 03/06/21 03/05/21 History theophylline 400 mg PO DAILY 12/08/20 03/06/21 03/05/21 History ipratropium-albuterol 3 ml INHALATION Q6H PRN #90 ml 12/09/20 03/06/21 03/06/21 Rx lisinopril 5 mg PO DAILY #30 tab 12/09/20 03/06/21 02/22/21 Rx Glucosamine Chondroitin 1 cap PO DAILY 02/22/21 03/06/21 02/22/21 History potassium chloride 10 meq PO DAILY PRN #30 cap 02/24/21 03/06/21 02/22/21 Rx rivaroxaban [Xarelto] 10 mg PO DAILY 28 Days #28 tab 02/24/21 03/06/21 03/05/21 Rx venlafaxine 150 mg 150 mg PO DAILY #90 cap 02/24/21 03/06/21 03/05/21 Rx capsule,extended release 24 hr Lasix 40 mg PO DAILY PRN 03/06/21 03/06/21 03/05/21 History carvedilol 6.25 mg PO BID 03/06/21 03/06/21 Unknown History levofloxacin 500 mg PO EVERY OTHER DAY 03/06/21 03/06/21 03/05/21 History Allergies Allergy/AdvReac Type Severity Reaction Status Date / Time azithromycin Allergy Unknown Verified 02/22/21 16:13 cephalexin [From Keflex] Allergy Unknown Verified 02/22/21 16:13 Penicillins Allergy Unknown Verified 02/22/21 16:13 PFSH Acute PFSH: Medical History Alzheimer disease 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 CHF (congestive heart failure) CKD (chronic kidney disease) COPD (chronic obstructive pulmonary disease) DDD (degenerative disc disease) GERD (gastroesophageal reflux disease) History of skin cancer treated with excision Hypertension Hypothyroidism Nonischemic cardiomyopathy NEERAJ (obstructive sleep apnea) Osteoporosis Surgical History H/O carpal tunnel repair H/O cataract extraction H/O: hysterectomy Family History Father CAD (coronary artery disease) Myocardial infarction Mother CAD (coronary artery disease) Myocardial infarction Sister CAD (coronary artery disease) Myocardial infarction Brother CAD (coronary artery disease) Myocardial infarction Daughter Cancer COLON Social History Smoking and tobacco status: never smoked Alcohol intake: never Household members: family Marital status: / Female Reproductive History: Date of last menstrual period: 09/18/20 Vitals/I&O/Wt Last Vital Signs Temp 98.3 F 03/06/21 11:46 Pulse 92 03/06/21 12:28 Resp 18 03/06/21 12:28 BP 131/74 03/06/21 12:28 Pulse Ox 96 03/06/21 12:28 Weight last 48 hrs Weight 180 lb Physical Exam Narrative: EXAM NARRATIVE: GENERAL: elderly woman laying flat in bed in no acute distress HEENT: No icterus. NECK: No JVD appreciated. No carotid bruit. CARDIOVASCULAR SYSTEM: S1-S2 irregular, tachycardia+. No murmur rubs or gallops. RESPIRATORY SYSTEM: AEBE, bilateral intermittent coarse rales+ in posterior lung beasley. No wheezes heard.No use of accessory muscles. ABDOMEN: Soft, nontender and nondistended. Normal bowel sounds present. EXTREMITIES: No cyanosis or clubbing. No edema. DRAWSTRING KNOTTER: Patient is alert, answering simple questions and following commands SKIN: Normal turgor and temperature. Data Other Data: Attestation for Other Data: I personally reviewed and interpreted the following: Other data: Transthoracic echocardiogram 09 December 2020 CONCLUSIONS Mildly dilated LV cavity with a diminished ejection fraction of 35%. Diffuse hypokinesia of the left ventricle. In view of the frequent ventricular arrhythmia, the ejection fraction estimation and the segmental wall motion analysis could be misleading. Minimally thickened aortic and mitral valves. Mild mitral annular calcification. There is no pericardial effusion. There are no intracardiac masses. Consider repeating the study once the arrhythmia is properly treated. Compared to the study from 05/29/2018, there seems to be some improvement in the LV ejection fraction. CTA chest 22 February 2021 IMPRESSION: 1. No evidence for pulmonary embolus. 2. Ground-glass opacities in the upper lobes are suspicious for pneumonia. Coronary angiogram 05 July 2018: Diagnostic Cath Status: Elective Diagnostic Findings Patient with worsening shortness of breath, left ventricular dysfunction by echo and an abnormal stress test. Brought in for elective coronary angiography. The coronary arteries are normal. No significant disease noted in the Left Main, LAD, Circumflex, or RCA coronary arteries. Coronary angiography shows co-dominance. Conclusions Patient has a nonischemic cardiomyopathy. No significant disease noted in the Left Main, LAD, Circumflex, or RCA coronary arteries. Moderate left ventricular systolic dysfunction. Ejection fraction of 35%. A&P Assessment and plan (1) Tachycardia: Concern for atrial flutter on telemtery. -I will get another EKG and start on low dose metoprolol. -Further changes, after EKG. -continue to monitor closely on telemetry. Status: Acute (2) Bradycardia: No indication for PPM so far. -No bradycardia noted. Status: Acute (3) COVID-19: Being managed by PCP. Status: Acute (4) Nonischemic cardiomyopathy: Status: Chronic (5) Hypertension: Status: Chronic Qualifiers: Hypertension type: essential hypertension Qualified Code(s): I10 - Essential (primary) hypertension (6) NEERAJ (obstructive sleep apnea): Status: Chronic Consult Attestations Time Spent in Patient Care: 16 - 35 minutes (>than 50% of time spent in counselling and/or direct pt care on unit). Coding Level of Care Code Acute Chief Vendor Quality for [facility] Diagnoses Tachycardia R00.0 Bradycardia R00.1 COVID-19 U07.1 Nonischemic cardiomyopathy I42.8 Hypertension I10 Hypertension type: essential hypertension NEERAJ (obstructive sleep apnea) G47.33
[2021-03-06 15:10] LABS: Troponin 5 2HR 19.15 ng/L (0-10)
[2021-03-06 15:11] LABS: Troponin 5 2HR Delta -2.85 ABS# (0-10)
--- NOTE | 2021-03-06 16:33 | ECG_ITS ---
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 Measurements Intervals [place] Rate: 97 P: 101 WI: 139 QRS: -38 QRSD: 141 T: 48 QT: 366 QTc: 466 Interpretive Statements SINUS RHYTHM WITH FREQUENT VENTRICULAR PREMATURE COMPLEXES LEFT AXIS DEVIATION [QRS AXIS < -30] LEFT BUNDLE BRANCH BLOCK [120+ ms QRS DURATION, 80+ ms Q/S IN V1/V2, 85+ ms R IN I/aVL/V5/V6] Compared to ECG 03/06/2021 12:04:37 Sinus tachycardia no longer present Electronically Signed On 03-06-2021 20:36:31 CDT by Santos Hall M.D. [email or web address]/[id number]
[2021-03-06 17:17] LABS: NT Pro B Type Natriuretic Pept 1540 pg/mL (0-450)
--- NOTE | 2021-03-06 18:01 | P.HP_ITS ---
Providers/Chief Complaint Admitting Physician: James Crowder MD Primary Care Provider: Alba Dueñas MD Chief Complaint: Dropping HR, Faint Feeling History of Present Illness Danyelle Hanna is a 80 year old female with a past medical history of Alzheimer's dementia, COPD, cardiomyopathy, EF of 35%, past history of NEERAJ, not adherent with CPAP, recent history of COVID-19 pneumonia, discharged on 2 L, discharged on Xarelto therapy for VT prophylaxis, who presents to [facility] due to concerns for low and elevated heart rate, low blood pressures, increased oxygen requirements, fatigue, malaise, increased confusion. Currently patient is alert to person, not to place, not to time, she does follow commands, but mostly history was provided by her daughter. Daughter tells me that she has significant Alzheimer's dementia, but she can recognize her, normally she can ambulate, and she can feed herself. But since her COVID-19 diagnosis discharge, she has had a slower decline, increased forgetfulness, lack of appetite, she has had a near fall. Her daughter has been monitoring her vitals closely, and she has noticed that her heart rates in the high 120s, and then sometimes of low 20s, and she also has low blood pressures. She is also noticed that her oxygen levels fluctuate, sometimes she needs more than 2 L up to 3 to 4 L, she is also had poor appetite, no nausea, vomiting no abdominal pain, no chest pain complaints, but to her she looks more short of breath. No diarrhea. Review of Systems Const: Reports: fatigue and malaise; Denies: fever(s) or chills Eyes: Denies: change in vision or blurry vision ENMT: Denies: nasal congestion Card: Reports: lightheadedness; Denies: chest pain or palpitations Resp: Reports: dyspnea; Denies: productive cough, non-productive cough or wheezing GI: Denies: abdominal pain, nausea, vomiting, hematemesis, diarrhea, constipation, hematochezia or melena : Denies: urinary frequency Skin/Breast: Denies: rash Neuro: Denies: dizziness Endo: Denies: polyuria or polydipsia Medications/Allergies Home Medications Medication Instructions Recorded Confirmed Last Taken Type ondansetron HCl [Zofran] 4 mg PO Q6H PRN #14 tab 08/08/19 03/06/21 Unknown Rx levothyroxine 50 mcg tablet 50 mcg PO DAILY 11/14/19 03/06/21 03/06/21 History omeprazole 20 mg tablet,delayed 20 mg PO BID 11/14/19 03/06/21 03/06/21 History release memantine 10 mg tablet 10 mg PO BID 7 Days #14 tab 02/13/20 03/06/21 03/05/21 Rx aspirin 325 mg tablet 325 mg PO DAILY tab 05/26/20 03/06/21 03/05/21 History nitroglycerin 0.4 mg sublingual 0.4 mg SUBLINGUAL Q5M PRN #25 tab 11/26/20 03/06/21 Unknown Rx tablet acetaminophen 1,000 mg PO PRN 12/08/20 03/06/21 Unknown History donepezil [Aricept] 10 mg PO DAILY 12/08/20 03/06/21 03/05/21 History isosorbide mononitrate 60 mg PO DAILY 12/08/20 03/06/21 03/05/21 History theophylline 400 mg PO DAILY 12/08/20 03/06/21 03/05/21 History ipratropium-albuterol 3 ml INHALATION Q6H PRN #90 ml 12/09/20 03/06/21 03/06/21 Rx lisinopril 5 mg PO DAILY #30 tab 12/09/20 03/06/21 02/22/21 Rx Glucosamine Chondroitin 1 cap PO DAILY 02/22/21 03/06/21 02/22/21 History potassium chloride 10 meq PO DAILY PRN #30 cap 02/24/21 03/06/21 02/22/21 Rx rivaroxaban [Xarelto] 10 mg PO DAILY 28 Days #28 tab 02/24/21 03/06/21 03/05/21 Rx venlafaxine 150 mg 150 mg PO DAILY #90 cap 02/24/21 03/06/21 03/05/21 Rx capsule,extended release 24 hr Lasix 40 mg PO DAILY PRN 03/06/21 03/06/21 03/05/21 History carvedilol 6.25 mg PO BID 03/06/21 03/06/21 Unknown History levofloxacin 500 mg PO EVERY OTHER DAY 03/06/21 03/06/21 03/05/21 History Allergies Allergy/AdvReac Type Severity Reaction Status Date / Time azithromycin Allergy Unknown Verified 02/22/21 16:13 cephalexin [From Keflex] Allergy Unknown Verified 02/22/21 16:13 Penicillins Allergy Unknown Verified 02/22/21 16:13 PFSH Acute PFSH: Medical History Alzheimer disease 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 CHF (congestive heart failure) CKD (chronic kidney disease) COPD (chronic obstructive pulmonary disease) DDD (degenerative disc disease) GERD (gastroesophageal reflux disease) History of skin cancer treated with excision Hypertension Hypothyroidism Nonischemic cardiomyopathy NEERAJ (obstructive sleep apnea) Osteoporosis Surgical History H/O carpal tunnel repair H/O cataract extraction H/O: hysterectomy Family History Father CAD (coronary artery disease) Myocardial infarction Mother CAD (coronary artery disease) Myocardial infarction Sister CAD (coronary artery disease) Myocardial infarction Brother CAD (coronary artery disease) Myocardial infarction Daughter Cancer COLON Social History Smoking and tobacco status: never smoked Alcohol intake: never Household members: family Marital status: / Female Reproductive History: Date of last menstrual period: 09/18/20 Vitals/I&O/Wt Last Vital Signs Temp 98.3 F 03/06/21 11:46 Pulse 96 03/06/21 17:51 Resp 18 03/06/21 15:48 BP 108/76 03/06/21 15:48 Pulse Ox 95 03/06/21 17:51 Weight last 48 hrs Weight 81.647 kg Physical Exam Const: COMMON NORMALS: no acute distress ORIENTATION/CONSCIOUSNESS: Yes awake, Yes oriented to person and Yes confused; not oriented to place and not oriented to time Eye: COMMON NORMALS: Equal, round and reactive pupils present GENERAL EYE: appearance normal, both eyes and all related structures Neck/C-Spine: COMMON NORMALS: full ROM THYROID: Thyroid normal Lymph: LYMPHATIC: no lymphadenopathy noted Resp: COMMON NORMALS: normal respiratory effort, No retractions, No use of accessory muscles and clear to auscultation bilaterally AUSCULTATION: clear to auscultation bilaterally Cardio: COMMON NORMALS: regular rate, regular rhythm, S1 normal heart sound present and S2 normal heart sound present RATE: regular rate RHYTHM: regular rhythm HEART SOUNDS: S1 normal heart sound present and S2 normal heart sound present GI: COMMON NORMALS: Normal to inspection, nondistended, normoactive bowel sounds present, Soft to palpation and non-tender Extremity: COMMON NORMALS: no pedal edema Neuro: COMMON NORMALS: CN's II-XII intact bilaterally and moves all extremit ies Data : 03/06/21 12:30 03/06/21 12:30 A&P Assessment and plan (1) Tachycardia-bradycardia syndrome: -Possible atrial flutter seen on telemetry -Repeat EKG pending -Troponins minimally elevated at 22, 121 at 19.15, BNP 1540, continue to monitor -On low-dose metoprolol -Continue telemetry monitoring -Obtain TSH, mag -UA pending for possible UTI -Chest x-ray shows diffuse pulmonary infiltrates likely secondary to underlying COVID-19, has been on Levaquin, hold Levaquin for now, switch to doxycycline -He is on theophylline, possibly could be contributing will hold for now -In addition is on Aricept, could be contributing to possible hypotension, will hold for now -Continue Xarelto, monitor hemoglobin -Continue Effexor -Neurochecks, aspiration precautions -Consult speech therapy, evaluate for possible aspiration, dysphagia diet for now -Clinically looks a bit dehydrated, will start gentle IV rehydration at 50 cc an hour -DNR/DNI -Xarelto for DVT prophylaxis Status: Acute (2) Pneumonia due to 2019 novel coronavirus: Status: Acute (3) Orthostatic hypotension: Status: Acute (4) Nonischemic cardiomyopathy: Status: Chronic (5) Acute kidney injury superimposed on CKD: Status: Acute (6) Hypertension: Status: Chronic Qualifiers: Hypertension type: essential hypertension Qualified Code(s): I10 - Essential (primary) hypertension (7) Alzheimer disease: Status: Chronic (8) NEERAJ (obstructive sleep apnea): Status: Chronic Attestations Medical Necessity Statement*: Patient requires hospitalization for tachycardia-bradycardia syndrome possible atrial fibrillation, inpatient, greater than 2 midnights Coding Level of Care Code Acute Cemetery Counselor for [facility] Diagnoses Tachycardia-bradycardia syndrome I49.5 Pneumonia due to 2019 novel coronavirus U07.1; J12.82 Orthostatic hypotension I95.1 Nonischemic cardiomyopathy I42.8 Acute kidney injury superimposed on CKD N17.9; N18.9 Hypertension I10 Hypertension type: essential hypertension Alzheimer disease G30.9; F02.80 NEERAJ (obstructive sleep apnea) G47.33
--- NOTE | 2021-03-06 18:02 | PC.RESP ---
PULMONARY REHAB INFORMATION SENT TO PATIENT.
[2021-03-06] MEDS: famotidine 20 mg Tablet PO (19:20)
[2021-03-06] MEDS: rivaroxaban 10 mg Tablet PO (19:20)
[2021-03-06] MEDS: doxycycline 100 mg Tablet PO (19:20)
[2021-03-06] MEDS: sodium chloride 0.9% 1,000 ML 50 ML IV (19:21)
[2021-03-06 20:57] LABS: Troponin 5 6HR 20.29 ng/L (0-10)
[2021-03-06 21:00] LABS: Troponin 5 6HR Delta -1.71 ng/L (0-12)
[2021-03-06 21:05] LABS: Procalcitonin 0.05 ng/mL (0-0.5)
[2021-03-06] MEDS: metoprolol tartrate 25 mg Tablet 12.5 MG PO (21:10)
[2021-03-06 21:16] LABS: C Reactive Protein 47.3 mg/L (0.0-4.9); Creatine Phosphokinase 24 U/L (26-192); Magnesium 1.8 mg/dL (1.7-2.3)
[2021-03-07] VITALS (24 sets, daily range): BP systolic 89–125; BP diastolic 58–66; PULSE 72–95; RESP 16–22; TEMP 36.4–36.8; O2SAT 88–95
[2021-03-07] MEDS: levalbuterol 0.63 mg/3 mL Neb INHALATION ×4 (04:51→20:55)
[2021-03-07 04:59] LABS: Basophils % 0.4 %; Eosinophils # 0.4 10^3/uL (0.0-0.8); Eosinophils % 6.3 %; Hematocrit 33.5 % (37.0-47.0); Hemoglobin 10.2 g/dL (11.5-15.3); Mean Corpuscular HGB Conc 30.4 g/dL (30.0-36.0); Mean Corpuscular Hemoglobin 26.8 pg (28.0-34.0); Mean Corpuscular Volume 88.2 fl (81-99); Mean Platelet Volume 10.6 fL (7.4-10.4); Monocytes # 0.6 10^3/uL (0.2-0.9); Monocytes % 10.6 %; Neutrophils # 3.59 10^3/uL (1.8-7.7); Neutrophils % 64.1 %; Nucleated Red Blood Cells % 0 %; Platelet Count 220 10^3/cmm (130-400); Red Cell Distribution Width 15.4 % (12.1-15.1); White Blood Count 5.6 10^3/uL (4.0-10.0)
[2021-03-07 05:26] LABS: Alanine Aminotransferase < 5 U/L (0-33); Albumin Level 2.7 g/dL (3.5-5.2); Alkaline Phosphatase 61 IU/L (35-105); Anion Gap 14.6 (5-19); Aspartate Amino Transferase 13 U/L (0-32); Blood Urea Nitrogen 12 mg/dL (8-23); Calcium 8.8 mg/dL (8.5-10.5); Carbon Dioxide 25 mmol/L (22-29); Chloride 104 mmol/L (98-107); Globulin 4.1 g/dL (1.3-4.6); Glucose 70 mg/dL (65-115); Magnesium 1.7 mg/dL (1.7-2.3); Osmolality Calculated 288 mOsm/kg (285-295); Phosphorus 2.6 mg/dL (2.5-4.5); Potassium 3.6 mmol/L (3.5-5.1); Sodium 140 mmol/L (136-145); Total Bilirubin 0.2 mg/dL (0.15-1.2); Total Protein 6.8 g/dL (6.6-8.7)
[2021-03-07] MEDS: levothyroxine 50 mcg Tablet PO (06:00)
[2021-03-07 06:07] LABS: Glucose Urine UA Norm (Normal); Protein Urine Trace (Negative); Urine Appearance Clear (CLEAR); Urine Color Yellow (Yellow); pH Urine 5 (5-7)
[2021-03-07 06:08] LABS: Add Urine Microscopic? YES; Bilirubin Urine 1+ (Negative); Blood Urine Neg (Negative); Ketones Urine 1+ (Negative); Leukocyte Esterase Urine Negative (Negative); Nitrate Urine Negative (Negative); Urobilinogen Urine 1 mg/dL (Negative)
[2021-03-07 06:09] LABS: Add Urine Culture? No; Bacteria Urine TRACE /hpf; RBC Urine 25-40 /hpf (0-2); Squamous Epithelial Cell Urine 15-25 /hpf (0-5); WBC Urine 0-4 /hpf (0-5)
[2021-03-07] MEDS: venlafaxine ER (24HR) 150 mg Capsule PO (08:22)
[2021-03-07] MEDS: aspirin 81 mg EC Tablet PO (08:22)
[2021-03-07] MEDS: metoprolol tartrate 25 mg Tablet 12.5 MG PO ×2 (08:22→20:12)
[2021-03-07] MEDS: doxycycline 100 mg Tablet PO ×2 (08:22→18:18)
[2021-03-07] MEDS: famotidine 20 mg Tablet PO ×2 (08:23→18:18)
--- NOTE | 2021-03-07 10:30 | USCV_ITS ---
Danyelle Hanna Age: 80 Gender: F : 1940 Exam Date: 03/07/2021 14:35 Ordering Phys: Tatianna Dangelo MD ([email or web address]) Technologist: PENELOPE Exam Location: [facility] [place] Indication: Tachycardia BP: 125 / 62 HR: 92 Rhythm: Sinus Technical Quality: Fair MEASUREMENTS (Male / Female) Normal Values 2D ECHO LV Diastolic Diameter PLAX 5.5 cm 4.2 - 5.9 / 3.9 - 5.3 cm LV Systolic Diameter PLAX 4.8 cm IVS Diastolic Thickness 1.2 cm 0.6 - 1.0 / 0.6 - 0.9 cm IVS Systolic Thickness 1.1 cm LVPW Diastolic Thickness 1.0 cm 0.6 - 1.0 / 0.6 - 0.9 cm LVPW Systolic Thickness 1.0 cm LV Ejection Fraction 2D Teich 25.9 % LV Ejection Fraction MOD 2C 17.2 % LV Ejection Fraction 2C AL 16.0 % M-MODE LV Diastolic Diameter MM 5.7 cm 4.2 - 5.9 / 3.9 - 5.3 cm LV Systolic Diameter MM 5.1 cm LV Ejection Fraction MM Teich 23.6 % IVS Diastolic Thickness MM 1.3 cm 0.6 - 1.0 / 0.6 - 0.9 cm IVS Systolic Thickness MM 1.1 cm LVPW Diastolic Thickness MM 1.3 cm 0.6 - 1.0 / 0.6 - 0.9 cm LVPW Systolic Thickness MM 1.3 cm FINDINGS Left Ventricle Normal left ventricular size. Moderately decreased systolic function. Left ventricular ejection fraction is estimated at 30- 35 %. Global left ventricular hypokinesis. Right Ventricle Normal right ventricular size and systolic function. Right Atrium Normal right atrial size. Left Atrium Mildly increased left atrial size. Mitral Valve Mildly thickened mitral valve. Aortic Valve Thickened aortic valve. Tricuspid Valve Structurally normal tricuspid valve. Pulmonic Valve Pulmonic valve not well visualized. Pericardium No pericardial effusion. Aorta Aorta not well visualized. CONCLUSIONS 1. This is a limited echocardiogram (2D only). 2. Normal left ventricular size. Moderately decreased systolic function. Left ventricular ejection fraction is estimated at 30- 35 %. Global left ventricular hypokinesis. 3. There may not have been any significant change when compared to previous echo dated 12/09/20. Tatianna Dangelo MD (Electronically Signed) Final Date: 07 March 2021 15:40 S
--- NOTE | 2021-03-07 14:02 | P.PN_ITS ---
Subjective Subjective: Interval history: No fevers overnight, she is alert to person, to place, not to time, she follows commands, daughters at bedside, she had a good night, she slept throughout the night, on 2 L no episodes of atrial flutter overnight, normotensive Vitals/I&O/Wt Last Vital Signs Temp 98.3 F 03/07/21 12:00 Pulse 88 03/07/21 12:04 Resp 18 03/07/21 12:04 BP 110/61 03/07/21 12:04 Pulse Ox 91 03/07/21 12:04 03/06/21 03/07/21 03/07/21 22:59 06:59 14:59 Intake Total 150 / 150 Balance 150 / 150 Weight last 48 hrs Weight 81.647 kg Physical Exam Const: COMMON NORMALS: no acute distress ORIENTATION/CONSCIOUSNESS: Yes awake, Yes oriented to person and Yes oriented to place; not oriented to time Resp: COMMON NORMALS: normal respiratory effort, No retractions, No use of accessory muscles and clear to auscultation bilaterally AUSCULTATION: clear to auscultation bilaterally Cardio: COMMON NORMALS: regular rate, regular rhythm, S1 normal heart sound present and S2 normal heart sound present RATE: regular rate RHYTHM: regular rhythm HEART SOUNDS: S1 normal heart sound present and S2 normal heart sound present GI: COMMON NORMALS: Normal to inspection, nondistended, normoactive bowel sounds present, Soft to palpation and non-tender PALPATION: Yes Soft to palpation Extremity: COMMON NORMALS: no pedal edema Neuro: SENSORIUM/ORIENTATION: Yes oriented to person, Yes oriented to place and No oriented to time Data : 03/07/21 04:26 03/07/21 04:26 Micro: Microbiology 03/06/21 20:00 Blood Culture - Preliminary Blood SPECIMEN COLLECTED 03/06/21 19:57 Blood Culture - Preliminary Blood SPECIMEN COLLECTED A&P Assessment and plan (1) Tachycardia-bradycardia syndrome: -Possible atrial flutter seen on telemetry -Repeat EKG sinus tachycardia, with LBBB -Troponins minimally elevated at 22, 121 at 19.15, BNP 1540, continue to monitor -orthostatic positive -On low-dose metoprolol -Continue telemetry monitoring -Obtain TSH WNL, mag WNL -UA shows contamination -Chest x-ray shows diffuse pulmonary infiltrates likely secondary to underlying COVID-19, has been on Levaquin, hold Levaquin for now, switch to doxycycline -He is on theophylline, possibly could be contributing will hold for now -In addition is on Aricept, could be contributing to possible hypotension, will hold for now -Continue Xarelto, monitor hemoglobin 10.2 -Continue Effexor -Neurochecks, aspiration precautions -Consult speech therapy, evaluate for possible aspiration, dysphagia diet for now -Clinically looks a bit dehydrated, will start gentle IV rehydration at 50 cc an hour -DNR/DNI -Xarelto for DVT prophylaxis Status: Acute (2) Pneumonia due to 2019 novel coronavirus: Status: Acute (3) Orthostatic hypotension: Status: Acute (4) Nonischemic cardiomyopathy: Status: Chronic (5) Acute kidney injury superimposed on CKD: Status: Acute (6) Hypertension: Status: Chronic Qualifiers: Hypertension type: essential hypertension Qualified Code(s): I10 - Essential (primary) hypertension (7) Alzheimer disease: Status: Chronic (8) NEERAJ (obstructive sleep apnea): Status: Chronic Attestations Medical Necessity Statement*: Patient requires hospitalization for orthostatic hypotension, atrial flutter, deconditioning Coding Level of Care Code Acute Cyber Defense Forensics Analyst for [facility] Diagnoses Tachycardia-bradycardia syndrome I49.5 Pneumonia due to 2019 novel coronavirus U07.1; J12.82 Orthostatic hypotension I95.1 Nonischemic cardiomyopathy I42.8 Acute kidney injury superimposed on CKD N17.9; N18.9 Hypertension I10 Hypertension type: essential hypertension Alzheimer disease G30.9; F02.80 NEERAJ (obstructive sleep apnea) G47.33
--- NOTE | 2021-03-07 14:41 | P.PN_ITS ---
Subjective Subjective: Interval history: No episodes of chest pain or shortness of breath. Few episodes of orthostatic hypotension. Medications: Reviewed: Yes Vitals/I&O/Wt Last Vital Signs Temp 98.3 F 03/07/21 12:00 Pulse 88 03/07/21 12:04 Resp 18 03/07/21 12:04 BP 110/61 03/07/21 12:04 Pulse Ox 91 03/07/21 12:04 03/06/21 03/07/21 03/07/21 22:59 06:59 14:59 Intake Total 150 / 150 Balance 150 / 150 Weight last 48 hrs Weight 180 lb Physical Exam Narrative: EXAM NARRATIVE: GENERAL: elderly woman laying flat in bed in no acute distress HEENT: No icterus. NECK: No JVD appreciated. No carotid bruit. CARDIOVASCULAR SYSTEM: S1-S2 regular. No murmur rubs or gallops. RESPIRATORY SYSTEM: AEBE, bilateral intermittent coarse rales+ in posterior lung beasley. No wheezes heard.No use of accessory muscles. ABDOMEN: Soft, nontender and nondistended. Normal bowel sounds present. EXTREMITIES: No cyanosis or clubbing. No edema. PANEL MACHINE SETTER: Patient is alert, answering simple questions and following commands SKIN: Normal turgor and temperature. Data : 03/07/21 04:26 03/07/21 04:26 Micro: Microbiology 03/06/21 20:00 Blood Culture - Preliminary Blood SPECIMEN COLLECTED 03/06/21 19:57 Blood Culture - Preliminary Blood SPECIMEN COLLECTED A&P Assessment and plan (1) Tachycardia: -No atrial flutter on telemtery. -continue on low dose metoprolol. -continue to monitor closely on telemetry. -Unchanged LV function on echocardiogram Status: Acute (2) Bradycardia: No indication for PPM. -No bradycardia noted. Status: Acute (3) Nonischemic cardiomyopathy: Status: Chronic (4) COVID-19: Being managed by PCP. Status: Acute (5) Hypertension: Status: Chronic Qualifiers: Hypertension type: essential hypertension Qualified Code(s): I10 - Essential (primary) hypertension (6) NEERAJ (obstructive sleep apnea): Status: Chronic Additional A&P Information Orthostatic hypotension Isolated PVCs Thank you for allowing me to participate in patient's care. Please feel free to call with questions or concerns. Attestations Medical Necessity Statement*: As per primary team Time Spent in Patient Care: 16 - 35 minutes (>than 50% of time spent in counselling and/or direct pt care on unit) . Coding Level of Care Code Acute Tubing Machine Tender for [facility] Diagnoses Tachycardia R00.0 Bradycardia R00.1 Nonischemic cardiomyopathy I42.8 COVID-19 U07.1 Hypertension I10 Hypertension type: essential hypertension NEERAJ (obstructive sleep apnea) G47.33
[2021-03-07] MEDS: sodium chloride 0.9% 1,000 ML 50 ML IV (15:37)
[2021-03-07] MEDS: rivaroxaban 10 mg Tablet PO (18:18)
--- NOTE | 2021-03-07 21:22 | PC.NURSE ---
patient resting in bed with daughter at bedside, patient has been up to BSC and tolerated well, currently VS WNL
[2021-03-08] VITALS (30 sets, daily range): BP systolic 80–131; BP diastolic 48–72; PULSE 81–120; RESP 14–25; TEMP 36.6–36.9; O2SAT 82–95
[2021-03-08] MEDS: levalbuterol 0.63 mg/3 mL Neb INHALATION ×4 (03:00→20:18)
[2021-03-08] MEDS: levothyroxine 50 mcg Tablet PO (05:15)
[2021-03-08 05:36] LABS: Basophils % 0.1 %; Eosinophils # 0.4 10^3/uL (0.0-0.8); Eosinophils % 5.3 %; Hematocrit 31.4 % (37.0-47.0); Hemoglobin 9.5 g/dL (11.5-15.3); Lymphocytes # 1.1 10^3/uL (0.8-4.8); Lymphocytes % 16.3 %; Mean Corpuscular HGB Conc 30.3 g/dL (30.0-36.0); Mean Corpuscular Hemoglobin 26.5 pg (28.0-34.0); Mean Corpuscular Volume 87.5 fl (81-99); Mean Platelet Volume 10.6 fL (7.4-10.4); Monocytes # 0.6 10^3/uL (0.2-0.9); Monocytes % 8.8 %; Neutrophils # 4.66 10^3/uL (1.8-7.7); Neutrophils % 67.5 %; Nucleated Red Blood Cells % 0 %; Platelet Count 250 10^3/cmm (130-400); Red Blood Count 3.59 10^6/uL (4.1-5.3); Red Cell Distribution Width 15.3 % (12.1-15.1); White Blood Count 6.9 10^3/uL (4.0-10.0)
[2021-03-08 06:12] LABS: Alanine Aminotransferase < 5 U/L (0-33); Albumin Level 2.7 g/dL (3.5-5.2); Alkaline Phosphatase 58 IU/L (35-105); Anion Gap 15.3 (5-19); Aspartate Amino Transferase 14 U/L (0-32); Blood Urea Nitrogen 12 mg/dL (8-23); Calcium 8.4 mg/dL (8.5-10.5); Carbon Dioxide 22 mmol/L (22-29); Chloride 107 mmol/L (98-107); Globulin 3.8 g/dL (1.3-4.6); Glucose 71 mg/dL (65-115); Magnesium 1.8 mg/dL (1.7-2.3); Osmolality Calculated 290 mOsm/kg (285-295); Phosphorus 2.3 mg/dL (2.5-4.5); Potassium 3.3 mmol/L (3.5-5.1); Sodium 141 mmol/L (136-145); Total Bilirubin 0.2 mg/dL (0.15-1.2); Total Protein 6.5 g/dL (6.6-8.7)
[2021-03-08 09:32] LABS: Reticulocyte % 0.8 % (0.5-2.0)
[2021-03-08] MEDS: venlafaxine ER (24HR) 150 mg Capsule PO (09:48)
[2021-03-08] MEDS: pantoprazole DR 40 mg Tablet PO ×2 (09:48→17:39)
[2021-03-08] MEDS: doxycycline 100 mg Tablet PO ×2 (09:48→17:38)
[2021-03-08] MEDS: aspirin 81 mg EC Tablet PO (09:48)
[2021-03-08 10:01] LABS: Ferritin 263 ng/mL (15-150); Iron 21 ug/dL (37-145); Total Iron Binding Capacity 149 mcg/dl; Unsaturated Iron Binding 128 ug/dL (112-347)
--- NOTE | 2021-03-08 10:07 | PC.NURSE ---
Dr ann at bedside and disccusion of Plan of care with patient and family verbal instruction received to hold this am dose of metoprolol and decrease does to 6.25Mg po
[2021-03-08 10:14] LABS: Folate Level 9.9 ng/mL (4.8-37.3)
[2021-03-08 10:15] LABS: Vitamin B12 561 pg/mL (232-1245)
--- NOTE | 2021-03-08 10:22 | P.PN_ITS ---
Subjective Subjective: Interval history: No episodes of chest pain or shortness of breath. Few episodes of orthostatic hypotension. Medications: Reviewed: Yes Vitals/I&O/Wt Last Vital Signs Temp 98 F 03/08/21 07:55 Pulse 84 03/08/21 09:44 Resp 18 03/08/21 09:31 BP 110/50 03/08/21 07:55 Pulse Ox 94 03/08/21 09:31 03/07/21 03/08/21 03/08/21 22:59 06:59 14:59 Intake Total 1350 / 1500 Output Total 300 / 300 50 / 350 Balance 1050 / 1200 -50 / 1150 Weight last 48 hrs Weight 180 lb Physical Exam Narrative: EXAM NARRATIVE: GENERAL: elderly woman laying flat in bed in no acute distress, using 2-3 L of oxygen via nasal HEENT: No icterus. NECK: No JVD appreciated. No carotid bruit. CARDIOVASCULAR SYSTEM: S1-S2 regular. No murmur rubs or gallops. RESPIRATORY SYSTEM: AEBE, bilateral intermittent coarse rales+ in posterior lung beasley. No wheezes heard.No use of accessory muscles. ABDOMEN: Soft, nontender and nondistended. Normal bowel sounds present. EXTREMITIES: No cyanosis or clubbing. No edema. FREQUENCY CHECKER: Patient is alert, answering simple questions and following commands SKIN: Normal turgor and temperature. Data : 03/08/21 05:06 03/08/21 05:06 Micro: Microbiology 03/06/21 20:00 Blood Culture - Preliminary Blood NEGATIVE TO DATE 03/06/21 19:57 Blood Culture - Preliminary Blood NEGATIVE TO DATE A&P Assessment and plan (1) Tachycardia: -No atrial flutter on telemtery. -continue on low dose metoprolol. dose decreased earlier today. -continue to monitor closely on telemetry. -Unchanged LV function on echocardiogram Status: Acute (2) Bradycardia: No indication for PPM. -No bradycardia noted. Status: Acute (3) Nonischemic cardiomyopathy: Status: Chronic (4) COVID-19: Being managed by PCP. Status: Acute (5) Hypertension: BP soft here. Status: Chronic Qualifiers: Hypertension type: essential hypertension Qualified Code(s): I10 - Essential (primary) hypertension (6) NEERAJ (obstructive sleep apnea): Status: Chronic Additional A&P Information Orthostatic hypotension Isolated PVCs Thank you for allowing me to participate in patient's care. Please feel free to call with questions or concerns. Attestations Medical Necessity Statement*: Asw per primary team Coding Level of Care Code Acute Harbor Tug Captain for [facility] Diagnoses Tachycardia R00.0 Bradycardia R00.1 Nonischemic cardiomyopathy I42.8 COVID-19 U07.1 Hypertension I10 Hypertension type: essential hypertension NEERAJ (obstructive sleep apnea) G47.33
--- NOTE | 2021-03-08 16:38 | PM.PN ---
Subjective Subjective: Interval history: This morning patient was quite sleepy, daughter at bedside tells me that this is normal for her, she does awaken, she does follow commands, she tells me that she is in the hospital she knows her name, but does not know the date, does not know the president, she has no complaints, is on 2 L, she has been adequately hydrating especially she can, nurse was doing orthostatic vitals and patient was orthostatic positive, systolic blood pressure did drop more than 20 while standing, did have appropriate sinus tachycardia, no evidence of arrhythmia events overnight that I could discern Vitals/I&O/Wt Last Vital Signs Temp 98 F 03/08/21 07:55 Pulse 99 03/08/21 15:00 Resp 20 H 03/08/21 15:00 BP 117/59 03/08/21 15:00 Pulse Ox 90 03/08/21 15:00 03/08/21 03/08/21 03/08/21 06:59 14:59 22:59 Intake Total 289.0909 / 289.0909 Output Total 50 / 350 Balance -50 / 4049 741.5088 / 289.0909 Physical Exam Const: COMMON NORMALS: no acute distress ORIENTATION/CONSCIOUSNESS: Yes awake, Yes oriented to person and Yes oriented to place; not oriented to time Resp: COMMON NORMALS: normal respiratory effort, No retractions, No use of accessory muscles and clear to auscultation bilaterally AUSCULTATION: clear to auscultation bilaterally Cardio: COMMON NORMALS: regular rate, regular rhythm, S1 normal heart sound present and S2 normal heart sound present RATE: regular rate RHYTHM: regular rhythm HEART SOUNDS: S1 normal heart sound present and S2 normal heart sound present GI: COMMON NORMALS: Normal to inspection, nondistended, normoactive bowel sounds present, Soft to palpation and non-tender PALPATION: Yes Soft to palpation Extremity: COMMON NORMALS: no pedal edema Neuro: SENSORIUM/ORIENTATION: Yes oriented to person, Yes oriented to place and No oriented to time Data : 03/08/21 05:06 03/08/21 05:06 Micro: Microbiology 03/06/21 20:00 Blood Culture - Preliminary Blood NEGATIVE TO DATE 03/06/21 19:57 Blood Culture - Preliminary Blood NEGATIVE TO DATE A&P Assessment and plan (1) Tachycardia-bradycardia syndrome: -Possible atrial flutter seen on telemetry, no arrhythmia events that I could discern -Repeat EKG sinus tachycardia, with LBBB -Troponins minimally elevated at 22, 121 at 19.15, BNP 1540, continue to monitor -Remains orthostatic positive, status post fluid therapy, if she remains orthostatic positive, likely related to a combination of beta-taiwo and/or vasovagal -We will further reduce metoprolol dose to 6.25 twice daily -Stop fluids -Continue telemetry monitoring -Obtain TSH WNL, mag WNL -UA shows contamination -Chest x-ray shows diffuse pulmonary infiltrates likely secondary to underlying COVID-19, has been on Levaquin, hold Levaquin for now, on doxycycline -sHe is on theophylline, possibly could be contributing will hold for now -In addition is on Aricept, could be contributing to possible hypotension, will hold for now -Continue Xarelto, monitor hemoglobin , Iron 21, ferritin 263, Hemoccult stool pending, continue for Protonix 40 twice daily9.5 -Continue Effexor -Neurochecks, aspiration precautions -Seen by speech therapy, no significant aspiration events, continue regular diet -Stop IV fluids -DNR/DNI -Xarelto for DVT prophylaxis Status: Acute (2) Pneumonia due to 2019 novel coronavirus: Status: Acute (3) Orthostatic hypotension: Status: Acute (4) Nonischemic cardiomyopathy: Status: Chronic (5) Acute kidney injury superimposed on CKD: Status: Acute (6) Hypertension: Status: Chronic Qualifiers: Hypertension type: essential hypertension Qualified Code(s): I10 - Essential (primary) hypertension (7) Alzheimer disease: Status: Chronic (8) NEERAJ (obstructive sleep apnea): Status: Chronic Attestations Medical Necessity Statement*: Patient requires hospitalization for weakness, orthostatic positive, possible atrial flutter Coding Level of Care Code Acute Lead Systems Developer for [facility] Diagnoses Tachycardia-bradycardia syndrome I49.5 Pneumonia due to 2019 novel coronavirus U07.1; J12.82 Orthostatic hypotension I95.1 Nonischemic cardiomyopathy I42.8 Acute kidney injury superimposed on CKD N17.9; N18.9 Hypertension I10 Hypertension type: essential hypertension Alzheimer disease G30.9; F02.80 NEERAJ (obstructive sleep apnea) G47.33
[2021-03-08] MEDS: memantine 5 mg tablet 10 MG PO (17:38)
[2021-03-08] MEDS: rivaroxaban 10 mg Tablet PO (17:39)
--- NOTE | 2021-03-08 18:31 | PC.NURSE ---
Shift Note Frequent safety and comfort rounds continue. Orders and/or nursing care completed as indicated. Patient monitored for response to intervention and treatment(s). Education provided includes new doses of medications, orthostatic blood pressures. Patient and/or education courses sales representative Daughter verbalizes understanding. Will continue to monitor.
[2021-03-08] MEDS: metoprolol tartrate 25 mg Tablet 6.25 MG PO (20:41)
[2021-03-09] VITALS (20 sets, daily range): BP systolic 83–119; BP diastolic 51–67; PULSE 79–94; RESP 16–23; TEMP 36.6; O2SAT 90–98
[2021-03-09] MEDS: levalbuterol 0.63 mg/3 mL Neb INHALATION ×3 (03:25→20:51)
[2021-03-09] MEDS: levothyroxine 50 mcg Tablet PO (05:14)
[2021-03-09 05:52] LABS: Basophils % 0.3 %; Eosinophils # 0.4 10^3/uL (0.0-0.8); Eosinophils % 5.8 %; Hematocrit 35.1 % (37.0-47.0); Hemoglobin 10.7 g/dL (11.5-15.3); Lymphocytes # 1.2 10^3/uL (0.8-4.8); Lymphocytes % 17.7 %; Mean Corpuscular HGB Conc 30.5 g/dL (30.0-36.0); Mean Corpuscular Hemoglobin 26.8 pg (28.0-34.0); Mean Platelet Volume 10.8 fL (7.4-10.4); Monocytes # 0.6 10^3/uL (0.2-0.9); Monocytes % 8.3 %; Neutrophils # 4.57 10^3/uL (1.8-7.7); Neutrophils % 66.3 %; Nucleated Red Blood Cells % 0 %; Platelet Count 275 10^3/cmm (130-400); Red Blood Count 3.99 10^6/uL (4.1-5.3); Red Cell Distribution Width 15.3 % (12.1-15.1); White Blood Count 6.9 10^3/uL (4.0-10.0)
[2021-03-09 06:16] LABS: Alanine Aminotransferase < 5 U/L (0-33); Albumin Level 2.7 g/dL (3.5-5.2); Alkaline Phosphatase 63 IU/L (35-105); Anion Gap 12.6 (5-19); Aspartate Amino Transferase 16 U/L (0-32); Blood Urea Nitrogen 9 mg/dL (8-23); Calcium 8.4 mg/dL (8.5-10.5); Carbon Dioxide 25 mmol/L (22-29); Chloride 108 mmol/L (98-107); Globulin 3.9 g/dL (1.3-4.6); Glucose 75 mg/dL (65-115); Magnesium 1.7 mg/dL (1.7-2.3); Osmolality Calculated 291 mOsm/kg (285-295); Phosphorus 2.4 mg/dL (2.5-4.5); Potassium 3.6 mmol/L (3.5-5.1); Sodium 142 mmol/L (136-145); Total Bilirubin 0.2 mg/dL (0.15-1.2); Total Protein 6.6 g/dL (6.6-8.7)
--- NOTE | 2021-03-09 07:16 | PC.NURSE ---
Shift Note Frequent safety and comfort rounds continue. Orders and/or nursing care completed as indicated. Patient monitored for response to intervention and treatment(s). Education provided includes plan of care. Patient and/or sales representative publications verbalized understanding. Will continue to monitor.
[2021-03-09] MEDS: metoprolol tartrate 25 mg Tablet 6.25 MG PO ×2 (09:22→20:24)
[2021-03-09] MEDS: memantine 5 mg tablet 10 MG PO ×2 (09:22→18:55)
[2021-03-09] MEDS: pantoprazole DR 40 mg Tablet PO ×2 (09:22→18:55)
[2021-03-09] MEDS: venlafaxine ER (24HR) 150 mg Capsule PO (09:22)
[2021-03-09] MEDS: doxycycline 100 mg Tablet PO ×2 (09:22→18:55)
[2021-03-09] MEDS: aspirin 81 mg EC Tablet PO (09:22)
--- NOTE | 2021-03-09 10:38 | PC.SOCIAL ---
Pg 2 IMM Explained to pt Pg 2 IMM, via phone. No questions voiced. Provided pt care nurse Eloise a copy to give to pt. Initialed, dated, & timed a copy & placed in chart.
--- NOTE | 2021-03-09 14:07 | P.PN_ITS ---
Subjective Subjective: Interval history: Patient was seen and examined this morning,complaining of being tired.Continue to be orthostatic Positive Medications: Reviewed: Yes Vitals/I&O/Wt Last Vital Signs Temp 98 F 03/09/21 04:00 Pulse 83 03/09/21 09:23 Resp 22 H 03/09/21 09:23 BP 116/59 03/09/21 09:22 Pulse Ox 96 03/09/21 09:23 03/08/21 03/09/21 03/09/21 22:59 06:59 14:59 Intake Total 1010 / 1299.0909 60 / 1359.0909 320 / 320 Output Total 300 / 300 300 / 600 Balance 710 / 999.0909 -240 / 759.0909 320 / 320 Physical Exam Const: COMMON NORMALS: patient oriented x3 HENMT: COMMON NORMALS: normocephalic and atraumatic HEAD & SCALP: normocephalic and atraumatic Resp: OTHER: B/L Crackles Present in both lung beasley up to mid lungs Cardio: COMMON NORMALS: regular rate, regular rhythm, S1 normal heart sound present, S2 normal heart sound present, No gallops present (Cardio), No murmurs present (Cardio), No rub (Cardio) and Peripheral pulses 2+ throughout RATE: regular rate RHYTHM: regular rhythm HEART SOUNDS: S1 normal heart sound present and S2 normal heart sound present PERIPHERAL PULSES: Peripheral pulses 2+ throughout GI: COMMON NORMALS: Normal to inspection, nondistended, normoactive bowel sounds present, Soft to palpation, non-tender, No hepatosplenomegaly present and no masses AUSCULTATION: Yes normoactive bowel sounds PALPATION: Yes Soft to palpation and Yes No hepatosplenomegaly present RECTAL EXAM: deferred Extremity: COMMON NORMALS: no clubbing, cyanosis or edema and no pedal edema Neuro: COMMON NORMALS: patient oriented x3 Data : 03/09/21 05:36 03/09/21 05:36 A&P Assessment and plan (1) Tachycardia-bradycardia syndrome: -Tachycardia - EKG sinus tachycardia, with LBBB -Troponin: Trend without Significant Delta - BNP 1540 - metoprolol 6.25 twice daily -Stop fluids -Continue telemetry monitoring -Obtain TSH WNL, mag WNL -UA shows contamination -Chest x-ray shows diffuse pulmonary infiltrates likely secondary to underlying COVID-19, has been on Levaquin, hold Levaquin for now, on doxycycline -sHe is on theophylline, possibly could be contributing will hold for now -In addition is on Aricept, could be contributing to possible hypotension, will hold for now -Continue Xarelto, monitor hemoglobin , Iron 21, ferritin 263, Hemoccult stool pending, continue for Protonix 40 twice daily9.5 -Continue Effexor -Neurochecks, aspiration precautions -Seen by speech therapy, no significant aspiration events, continue regular diet -Stop IV fluids -DNR/DNI -Xarelto for DVT prophylaxis Status: Acute (2) Pneumonia due to 2019 novel coronavirus: Status: Acute (3) Orthostatic hypotension: Midodrine 5 mg PO TID Compression Stockings Monitor orthostatic vital signs Status: Acute (4) Nonischemic cardiomyopathy: Lasix 20 mg I.V Once Monitor intake output Daily weight Status: Chronic (5) Acute kidney injury superimposed on CKD: Status: Acute (6) Hypertension: Status: Chronic Qualifiers: Hypertension type: essential hypertension Qualified Code(s): I10 - Essential (primary) hypertension (7) Alzheimer disease: Status: Chronic (8) NEERAJ (obstructive sleep apnea): Status: Chronic Attestations Medical Necessity Statement*: Patient needs to be in hospital for management of persistent symptomatic orthostatic hypotension. Coding Level of Care Code Acute Loss Control Engineer for [facility] Diagnoses Tachycardia-bradycardia syndrome I49.5 Pneumonia due to 2019 novel coronavirus U07.1; J12.82 Orthostatic hypotension I95.1 Nonischemic cardiomyopathy I42.8 Acute kidney injury superimposed on CKD N17.9; N18.9 Hypertension I10 Hypertension type: essential hypertension Alzheimer disease G30.9; F02.80 NEERAJ (obstructive sleep apnea) G47.33
[2021-03-09] MEDS: midodrine 5 mg TABLET PO ×2 (14:57→20:25)
--- NOTE | 2021-03-09 15:26 | PC.NURSE ---
Dr mathis at bedside verbal instructions received to give midodrine PO as ordered now and give Lasix 20mg IVP at 1600 if blood pressure stable
[2021-03-09] MEDS: FUROsemide 10 mg/mL SDV 2mL 20 MG IVP (16:48)
--- NOTE | 2021-03-09 17:57 | PM.PN ---
Subjective Subjective: Interval history: Patient looks good. Overnight agitation reported by nursing staff. No significant events on telemetry. Medications: Reviewed: Yes Vitals/I&O/Wt Last Vital Signs Temp 98 F 03/09/21 04:00 Pulse 91 03/09/21 14:00 Resp 19 H 03/09/21 14:00 BP 108/53 03/09/21 14:00 Pulse Ox 98 03/09/21 14:00 03/09/21 03/09/21 03/09/21 06:59 14:59 22:59 Intake Total 60 / 1359.0909 320 / 320 Output Total 300 / 600 Balance -240 / 759.0909 320 / 320 Physical Exam Narrative: EXAM NARRATIVE: GENERAL: elderly woman laying flat in bed in no acute distress, using 2-3 L of oxygen via nasal HEENT: No icterus. NECK: No JVD appreciated. No carotid bruit. CARDIOVASCULAR SYSTEM: S1-S2 regular. No murmur rubs or gallops. RESPIRATORY SYSTEM: AEBE, bilateral coarse rales+ in posterior lung beasley. No wheezes heard.No use of accessory muscles. ABDOMEN: Soft, nontender and nondistended. Normal bowel sounds present. EXTREMITIES: No cyanosis or clubbing. No edema. ASSEMBLER AND TESTER ELECTRONICS: Patient is alert, answering simple questions and following commands SKIN: Normal turgor and temperature. Data : 03/09/21 05:36 03/09/21 05:36 A&P Assessment and plan (1) Tachycardia: -continue on low dose metoprolol. -continue to monitor closely on telemetry. -Unchanged LV function on echocardiogram Status: Acute (2) Nonischemic cardiomyopathy: Received Lasix 20 mg IV x1 today. -Depending on blood pressure may need to uptitrate midodrine to 10 mg 3 times daily. Status: Chronic (3) COVID-19: Being managed by primary team.. Status: Acute (4) Hypertension: BP soft here. Status: Chronic Qualifiers: Hypertension type: essential hypertension Qualified Code(s): I10 - Essential (primary) hypertension (5) NEERAJ (obstructive sleep apnea): Status: Chronic (6) Bradycardia: No indication for PPM. -No bradycardia noted. Status: Acute Additional A&P Information Orthostatic hypotension : started on midodrine Isolated PVCs Thank you for allowing me to participate in patient's care. Please feel free to call with questions or concerns. Attestations Medical Necessity Statement*: As per primary team. Time Spent in Patient Care: 16 - 35 minutes (>than 50% of time spent in counselling and/or direct pt care on unit). Coding Level of Care Code Acute Automotive Accessory Installer for [facility] Diagnoses Tachycardia R00.0 Nonischemic cardiomyopathy I42.8 COVID-19 U07.1 Hypertension I10 Hypertension type: essential hypertension NEERAJ (obstructive sleep apnea) G47.33 Bradycardia R00.1
[2021-03-09] MEDS: rivaroxaban 10 mg Tablet PO (18:55)
--- NOTE | 2021-03-09 20:23 | PC.NURSE ---
Shift Note Frequent safety and comfort rounds continue. Orders and/or nursing care completed as indicated. Patient monitored for response to intervention and treatment(s). Education provided includes new medications and actions. Patient and/or customer sales representative Daughter verbalized understanding. Will continue to monitor.
[2021-03-10] VITALS (21 sets, daily range): BP systolic 100–124; BP diastolic 45–79; PULSE 76–110; RESP 10–24; TEMP 36.6–36.7; O2SAT 89–96
[2021-03-10] MEDS: levalbuterol 0.63 mg/3 mL Neb INHALATION ×4 (02:58→20:15)
[2021-03-10] MEDS: levothyroxine 50 mcg Tablet PO (05:07)
[2021-03-10 05:25] LABS: Basophils % 0.3 %; Eosinophils # 0.4 10^3/uL (0.0-0.8); Eosinophils % 5.9 %; Hematocrit 32.9 % (37.0-47.0); Hemoglobin 10.1 g/dL (11.5-15.3); Lymphocytes # 1.1 10^3/uL (0.8-4.8); Lymphocytes % 16.7 %; Mean Corpuscular HGB Conc 30.7 g/dL (30.0-36.0); Mean Corpuscular Hemoglobin 26.4 pg (28.0-34.0); Mean Corpuscular Volume 86.1 fl (81-99); Mean Platelet Volume 10.9 fL (7.4-10.4); Monocytes # 0.8 10^3/uL (0.2-0.9); Monocytes % 11.1 %; Neutrophils # 4.38 10^3/uL (1.8-7.7); Neutrophils % 64.1 %; Nucleated Red Blood Cells % 0 %; Platelet Count 253 10^3/cmm (130-400); Red Blood Count 3.82 10^6/uL (4.1-5.3); Red Cell Distribution Width 15.4 % (12.1-15.1); White Blood Count 6.8 10^3/uL (4.0-10.0)
[2021-03-10 05:48] LABS: Alanine Aminotransferase < 5 U/L (0-33); Albumin Level 2.6 g/dL (3.5-5.2); Alkaline Phosphatase 61 IU/L (35-105); Anion Gap 10.6 (5-19); Aspartate Amino Transferase 13 U/L (0-32); Blood Urea Nitrogen 12 mg/dL (8-23); Calcium 8.7 mg/dL (8.5-10.5); Carbon Dioxide 28 mmol/L (22-29); Chloride 109 mmol/L (98-107); Globulin 3.8 g/dL (1.3-4.6); Glucose 79 mg/dL (65-115); NT Pro B Type Natriuretic Pept 4258 pg/mL (0-450); Osmolality Calculated 297 mOsm/kg (285-295); Potassium 3.6 mmol/L (3.5-5.1); Sodium 144 mmol/L (136-145); Total Bilirubin 0.2 mg/dL (0.15-1.2); Total Protein 6.4 g/dL (6.6-8.7)
--- NOTE | 2021-03-10 06:23 | PC.NURSE ---
Shift Note Frequent safety and comfort rounds continue. Pt slept well throughout the night. Pt needs reorienting when she is woke up. Orders and nursing care completed as indicated. Patient monitored for response to intervention and treatment. Education provided includes how Midodrine will help with her low blood pressures. Patient and daughter verbalized understanding but needs reinforcement.
[2021-03-10] MEDS: memantine 5 mg tablet 10 MG PO ×2 (08:59→17:34)
[2021-03-10] MEDS: pantoprazole DR 40 mg Tablet PO ×2 (08:59→17:35)
[2021-03-10] MEDS: aspirin 81 mg EC Tablet PO (08:59)
[2021-03-10] MEDS: doxycycline 100 mg Tablet PO ×2 (08:59→17:35)
[2021-03-10] MEDS: midodrine 5 mg TABLET PO ×3 (08:59→20:18)
[2021-03-10] MEDS: venlafaxine ER (24HR) 150 mg Capsule PO (09:00)
[2021-03-10] MEDS: metoprolol tartrate 25 mg Tablet 6.25 MG PO ×2 (09:03→20:16)
--- NOTE | 2021-03-10 10:25 | PC.NURSE ---
Dr mathis in room at this time for assessment and discussion of plan of care verbal instructions received to restart Home dose of aricept 10mg PO daily
[2021-03-10] MEDS: donepezil 5 MG Tablet 10 MG PO (11:00)
[2021-03-10] MEDS: FUROsemide 10 mg/mL SDV 2mL 20 MG IVP (11:44)
[2021-03-10] MEDS: potassium chloride ER 20 mEq Tablet PO (11:45)
[2021-03-10 14:33] LABS: Magnesium 1.5 mg/dL (1.7-2.3); NT Pro B Type Natriuretic Pept 4116 pg/mL (0-450)
--- NOTE | 2021-03-10 15:53 | P.PN_ITS ---
Subjective Subjective: Interval history: She is drowsy today but after recieving lasix today sshe feels better. Medications: Reviewed: Yes Vitals/I&O/Wt Last Vital Signs Temp 98.1 F 03/10/21 04:00 Pulse 106 H 03/10/21 15:28 Resp 18 03/10/21 15:22 BP 103/55 03/10/21 12:00 Pulse Ox 91 03/10/21 15:22 03/10/21 03/10/21 03/10/21 06:59 14:59 22:59 Intake Total 50 / 690 120 / 120 Balance 50 / 140 120 / 120 Physical Exam Const: COMMON NORMALS: patient oriented x3 HENMT: COMMON NORMALS: normocephalic and atraumatic HEAD & SCALP: normocephalic and atraumatic Resp: OTHER: B/L Crackles Present in both lung beasley up to mid lungs Cardio: COMMON NORMALS: regular rate, regular rhythm, S1 normal heart sound present, S2 normal heart sound present, No gallops present (Cardio), No murmurs present (Cardio), No rub (Cardio) and Peripheral pulses 2+ throughout RATE: regular rate RHYTHM: regular rhythm HEART SOUNDS: S1 normal heart sound present and S2 normal heart sound present PERIPHERAL PULSES: Peripheral pulses 2+ throughout GI: COMMON NORMALS: Normal to inspection, nondistended, normoactive bowel sounds present, Soft to palpation, non-tender, No hepatosplenomegaly present and no masses AUSCULTATION: Yes normoactive bowel sounds PALPATION: Yes Soft to palpation and Yes No hepatosplenomegaly present RECTAL EXAM: deferred Extremity: COMMON NORMALS: no clubbing, cyanosis or edema and no pedal edema Neuro: COMMON NORMALS: patient oriented x3 Data : 03/10/21 04:48 03/10/21 04:48 A&P Assessment and plan (1) Tachycardia-bradycardia syndrome: -Tachycardia - EKG sinus tachycardia, with LBBB -Troponin: Trend without Significant Delta - BNP 1540 - metoprolol 6.25 twice daily -Stop fluids -Continue telemetry monitoring -Obtain TSH WNL, mag WNL -UA shows contamination -Chest x-ray shows diffuse pulmonary infiltrates likely secondary to underlying COVID-19, has been on Levaquin, hold Levaquin for now, on doxycycline -sHe is on theophylline, possibly could be contributing will hold for now -In addition is on Aricept, could be contributing to possible hypotension, will hold for now -Continue Xarelto, monitor hemoglobin , Iron 21, ferritin 263, Hemoccult stool p ending, continue for Protonix 40 twice daily9.5 -Continue Effexor -Neurochecks, aspiration precautions -Seen by speech therapy, no significant aspiration events, continue regular diet -Stop IV fluids -DNR/DNI -Xarelto for DVT prophylaxis Status: Acute (2) Pneumonia due to 2019 novel coronavirus: Status: Acute (3) Orthostatic hypotension: Midodrine 5 mg PO TID Compression Stockings Monitor orthostatic vital signs Status: Acute (4) Nonischemic cardiomyopathy: Decompensated HFrEF Lasix 20 mg I.V Q12 H Daily Monitor intake output Daily weight Status: Chronic (5) Acute kidney injury superimposed on CKD: Status: Acute (6) Hypertension: Status: Chronic Qualifiers: Hypertension type: essential hypertension Qualified Code(s): I10 - Essential (primary) hypertension (7) Alzheimer disease: Status: Chronic (8) NEERAJ (obstructive sleep apnea): Status: Chronic Attestations Medical Necessity Statement*: Patient needs to be in hospital for management of Heart failure Coding Level of Care Code Acute Nuclear Unit Operator for [facility] Diagnoses Tachycardia-bradycardia syndrome I49.5 Pneumonia due to 2019 novel coronavirus U07.1; J12.82 Orthostatic hypotension I95.1 Nonischemic cardiomyopathy I42.8 Acute kidney injury superimposed on CKD N17.9; N18.9 Hypertension I10 Hypertension type: essential hypertension Alzheimer disease G30.9; F02.80 NEERAJ (obstructive sleep apnea) G47.33
--- NOTE | 2021-03-10 16:22 | PC.NURSE ---
verbal instructions received to discontinue ISolation
--- NOTE | 2021-03-10 17:20 | PC.NURSE ---
Shift Note Frequent safety and comfort rounds continue. Orders and/or nursing care completed as indicated. Patient monitored for response to intervention and treatment(s). Education provided includes new medications midodrine and monitoring . Patient and/or event marketing representative daughter verbalized understanding. Will continue to monitor.
[2021-03-10] MEDS: rivaroxaban 10 mg Tablet PO (17:35)
--- NOTE | 2021-03-10 21:58 | P.PN_ITS ---
Subjective Subjective: Interval history: She is drowsy today but after recieving lasix today sshe feels better. Medications: Reviewed: Yes Vitals/I&O/Wt Last Vital Signs Temp 97.8 F 03/10/21 20:00 Pulse 84 03/10/21 21:47 Resp 18 03/10/21 21:47 BP 117/71 03/10/21 20:00 Pulse Ox 96 03/10/21 21:47 03/10/21 03/10/21 03/10/21 06:59 14:59 22:59 Intake Total 50 / 690 440 / 440 250 / 690 Output Total 600 / 600 Balance 50 / 140 440 / 440 -350 / 90 Physical Exam Narrative: EXAM NARRATIVE: GENERAL: elderly woman laying flat in bed in no acute distress, using 2-3 L of oxygen via nasal HEENT: No icterus. NECK: No JVD appreciated. No carotid bruit. CARDIOVASCULAR SYSTEM: S1-S2 regular. No murmur rubs or gallops. RESPIRATORY SYSTEM: AEBE, bilateral coarse rales+ in posterior lung beasley. No wheezes heard.No use of accessory muscles. ABDOMEN: Soft, nontender and nondistended. Normal bowel sounds present. EXTREMITIES: No cyanosis or clubbing. No edema. HUMID SYSTEM OPERATOR: Patient is alert, answering simple questions and following commands SKIN: Normal turgor and temperature. Data : 03/10/21 04:48 03/10/21 04:48 A&P Assessment and plan (1) Tachycardia: -continue on low dose metoprolol. -continue to monitor closely on telemetry. -Unchanged LV function on echocardiogram Status: Acute (2) Nonischemic cardiomyopathy: Received Lasix 20 mg IV x1 today. Possibly transition to lasix 20 mg on discharge. -Will uptitrate midodrine to 10 mg 3 times daily. Status: Chronic (3) COVID-19: Being managed by primary team.. Status: Acute (4) Hypertension: BP soft here. Status: Chronic Qualifiers: Hypertension type: essential hypertension Qualified Code(s): I10 - Essential (primary) hypertension (5) NEERAJ (obstructive sleep apnea): Status: Chronic (6) Bradycardia: No indication for PPM. -No bradycardia noted. Status: Acute Additional A&P Information Orthostatic hypotension : started on midodrine Isolated PVCs Thank you for allowing me to participate in patient's care. Please feel free to call with questions or concerns. Attestations Medical Necessity Statement*: As per primary team Time Spent in Patient Care: 16 - 35 minutes Coding Level of Care Code Acute Director Of Philanthropy for [facility] Diagnoses Tachycardia R00.0 Nonischemic cardiomyopathy I42.8 COVID-19 U07.1 Hypertension I10 Hypertension type: essential hypertension NEERAJ (obstructive sleep apnea) G47.33 Bradycardia R00.1
[2021-03-11] VITALS (17 sets, daily range): BP systolic 106–132; BP diastolic 52–80; PULSE 81–105; RESP 17–22; TEMP 36.3–37; O2SAT 87–100
[2021-03-11] MEDS: levalbuterol 0.63 mg/3 mL Neb INHALATION ×4 (04:52→19:35)
[2021-03-11] MEDS: levothyroxine 50 mcg Tablet PO (06:14)
--- NOTE | 2021-03-11 08:01 | XR_ITS ---
WS: [id number] XR chest 1V portable [id number] REASON FOR EXAM: PNA FINDINGS: There are bilateral pulmonary infiltrates, significantly more extensive on the left. There has not been any significant improvement in the severity of infiltrates. No new findings are noted. XR/XR chest 1V portable [id number] IMPRESSION: Stable abnormal chest.
[2021-03-11] MEDS: midodrine 5 mg TABLET 10 MG PO ×3 (08:30→21:45)
[2021-03-11] MEDS: donepezil 5 MG Tablet 10 MG PO (08:30)
[2021-03-11] MEDS: potassium chloride ER 20 mEq Tablet PO (08:30)
[2021-03-11] MEDS: venlafaxine ER (24HR) 150 mg Capsule PO (08:30)
[2021-03-11] MEDS: doxycycline 100 mg Tablet PO ×2 (08:30→17:37)
[2021-03-11] MEDS: pantoprazole DR 40 mg Tablet PO ×2 (08:30→17:38)
[2021-03-11] MEDS: memantine 5 mg tablet 10 MG PO ×2 (08:30→17:37)
[2021-03-11] MEDS: aspirin 81 mg EC Tablet PO (08:30)
[2021-03-11] MEDS: metoprolol tartrate 25 mg Tablet 6.25 MG PO ×2 (08:37→21:44)
[2021-03-11] MEDS: magnesium sulfate premix 2 GM/50 ML PIGGYBACK IV (10:09)
[2021-03-11 10:43] LABS: Basophils % 0.5 %; Eosinophils # 0.4 10^3/uL (0.0-0.8); Eosinophils % 4.3 %; Hemoglobin 10.3 g/dL (11.5-15.3); Lymphocytes % 11.2 %; Mean Corpuscular HGB Conc 30.3 g/dL (30.0-36.0); Mean Corpuscular Hemoglobin 26.2 pg (28.0-34.0); Mean Corpuscular Volume 86.5 fl (81-99); Mean Platelet Volume 10.6 fL (7.4-10.4); Monocytes # 0.9 10^3/uL (0.2-0.9); Monocytes % 10.6 %; Neutrophils # 6.19 10^3/uL (1.8-7.7); Neutrophils % 72.1 %; Nucleated Red Blood Cells % 0 %; Platelet Count 289 10^3/cmm (130-400); Red Blood Count 3.93 10^6/uL (4.1-5.3); Red Cell Distribution Width 15.4 % (12.1-15.1); White Blood Count 8.6 10^3/uL (4.0-10.0)
[2021-03-11] MEDS: FUROsemide 10 mg/mL SDV 2mL 20 MG IVP (10:51)
[2021-03-11 11:06] LABS: Alanine Aminotransferase < 5 U/L (0-33); Albumin Level 2.8 g/dL (3.5-5.2); Alkaline Phosphatase 69 IU/L (35-105); Anion Gap 11.9 (5-19); Aspartate Amino Transferase 17 U/L (0-32); Blood Urea Nitrogen 13 mg/dL (8-23); Calcium 8.9 mg/dL (8.5-10.5); Carbon Dioxide 28 mmol/L (22-29); Chloride 103 mmol/L (98-107); Globulin 3.7 g/dL (1.3-4.6); Glucose 84 mg/dL (65-115); Magnesium 2.2 mg/dL (1.7-2.3); Osmolality Calculated 287 mOsm/kg (285-295); Potassium 3.9 mmol/L (3.5-5.1); Sodium 139 mmol/L (136-145); Total Bilirubin 0.2 mg/dL (0.15-1.2); Total Protein 6.5 g/dL (6.6-8.7)
--- NOTE | 2021-03-11 12:21 | PM.PN ---
Subjective Subjective: Interval history: She is sleeping. No events on telemetry. Medications: Reviewed: Yes Vitals/I&O/Wt Last Vital Signs Temp 97.4 F L 03/11/21 10:47 Pulse 85 03/11/21 10:47 Resp 18 03/11/21 10:47 BP 115/65 03/11/21 10:47 Pulse Ox 91 03/11/21 10:47 03/10/21 03/11/21 03/11/21 22:59 06:59 14:59 Intake Total 250 / 690 50 / 50 Output Total 600 / 600 250 / 850 Balance -350 / 90 -250 / -160 50 / 50 Physical Exam Narrative: EXAM NARRATIVE: GENERAL: elderly woman laying flat in bed in no acute distress, using 2-3 L of oxygen via nasal HEENT: No icterus. NECK: No JVD appreciated. No carotid bruit. CARDIOVASCULAR SYSTEM: S1-S2 regular. No murmur rubs or gallops. RESPIRATORY SYSTEM: AEBE, bilateral coarse rales+ in posterior lung beasley. No wheezes heard.No use of accessory muscles. ABDOMEN: Soft, nontender and nondistended. Normal bowel sounds present. EXTREMITIES: No cyanosis or clubbing. No edema. PAYROLL BENEFITS ADMINISTRATOR: Patient is alert, answering simple questions and following commands SKIN: Normal turgor and temperature. Data : 03/11/21 10:36 03/11/21 10:36 A&P Assessment and plan (1) Tachycardia: -continue on low dose metoprolol. -continue to monitor closely on telemetry. -Unchanged LV function on echocardiogram Status: Acute (2) Nonischemic cardiomyopathy: -Appears decompensated. -No changes on EKG. -Received Lasix 20 mg IV x1 today. Possibly transition to lasix 20 mg on discharge. -Will uptitrate midodrine to 10 mg 3 times daily. Status: Chronic (3) COVID-19: Being managed by primary team.. Status: Acute (4) Hypertension: BP soft here. Status: Chronic Qualifiers: Hypertension type: essential hypertension Qualified Code(s): I10 - Essential (primary) hypertension (5) NEERAJ (obstructive sleep apnea): Status: Chronic (6) Bradycardia: No indication for PPM. -No bradycardia noted. Status: Acute Additional A&P Information Orthostatic hypotension : started on midodrine Isolated PVCs PNA Thank you for allowing me to participate in patient's care. Please feel free to call with questions or concerns. Attestations Medical Necessity Statement*: As per primary team Time Spent in Patient Care: 16 - 35 minutes Coding Level of Care Code Acute Aquatics Group Fitness Instructor for [facility] Diagnoses Tachycardia R00.0 Nonischemic cardiomyopathy I42.8 COVID-19 U07.1 Hypertension I10 Hypertension type: essential hypertension NEERAJ (obstructive sleep apnea) G47.33 Bradycardia R00.1
--- NOTE | 2021-03-11 13:03 | PM.PN ---
Subjective Subjective: Interval history: Patient was seen and examined this morning. She was much more alert awake and oriented today. Continues to be weak. Shortness of breath is improved. Medications: Reviewed: Yes Vitals/I&O/Wt Last Vital Signs Temp 97.4 F L 03/11/21 10:47 Pulse 85 03/11/21 10:47 Resp 18 03/11/21 10:47 BP 115/65 03/11/21 10:47 Pulse Ox 91 03/11/21 10:47 03/10/21 03/11/21 03/11/21 22:59 06:59 14:59 Intake Total 250 / 690 50 / 50 Output Total 600 / 600 250 / 850 Balance -350 / 90 -250 / -160 50 / 50 Physical Exam Const: COMMON NORMALS: patient oriented x3 HENMT: COMMON NORMALS: normocephalic and atraumatic HEAD & SCALP: normocephalic and atraumatic Resp: OTHER: B/L Crackles Present in both lung beasley improving Cardio: COMMON NORMALS: regular rate, regular rhythm, S1 normal heart sound present, S2 normal heart sound present, No gallops present (Cardio), No murmurs present (Cardio), No rub (Cardio) and Peripheral pulses 2+ throughout RATE: regular rate RHYTHM: regular rhythm HEART SOUNDS: S1 normal heart sound present and S2 normal heart sound present PERIPHERAL PULSES: Peripheral pulses 2+ throughout GI: COMMON NORMALS: Normal to inspection, nondistended, normoactive bowel sounds present, Soft to palpation, non-tender, No hepatosplenomegaly present and no masses AUSCULTATION: Yes normoactive bowel sounds PALPATION: Yes Soft to palpation and Yes No hepatosplenomegaly present RECTAL EXAM: deferred Extremity: COMMON NORMALS: no clubbing, cyanosis or edema and no pedal edema Neuro: COMMON NORMALS: patient oriented x3 Data : 03/11/21 10:36 03/11/21 10:36 A&P Assessment and plan (1) Tachycardia-bradycardia syndrome: -Tachycardia - EKG sinus tachycardia, with LBBB -Troponin: Trend without Significant Delta - BNP 1540 - metoprolol 6.25 twice daily -Stop fluids -Continue telemetry monitoring -Obtain TSH WNL, mag WNL -UA shows contamination -Chest x-ray shows diffuse pulmonary infiltrates likely secondary to underlying COVID-19, has been on Levaquin, hold Levaquin for now, on doxycycline -sHe is on theophylline, possibly could be contributing will hold for now -Initially Aricept, and memantine was on hold due to concerns for hypotension. Later was resumed. -Continue Xarelto, monitor hemoglobin , Iron 21, ferritin 263, Hemoccult stool pending, continue for Protonix 40 twice daily9.5 -Continue Effexor -Neurochecks, aspiration precautions -Seen by speech therapy, no significant aspiration events, continue regular diet -Stop IV fluids -DNR/DNI -Xarelto for DVT prophylaxis Status: Acute (2) Pneumonia due to 2019 novel coronavirus: Status: Acute (3) Orthostatic hypotension: Midodrine 10 mg PO TID Compression Stockings Monitor orthostatic vital signs Status: Acute (4) Nonischemic cardiomyopathy: Decompensated HFrEF Lasix 20 mg I.V Daily Monitor intake output Daily weight Status: Chronic (5) Acute kidney injury superimposed on CKD: Status: Acute (6) Hypertension: Status: Chronic Qualifiers: Hypertension type: essential hypertension Qualified Code(s): I10 - Essential (primary) hypertension (7) Alzheimer disease: Status: Chronic (8) NEERAJ (obstructive sleep apnea): Status: Chronic Attestations Medical Necessity Statement*: Patient needs to be in hospital for management of decompensated heart failure. Coding Level of Care Code Acute Certified Registered Locksmith for [facility] Fwd Exam Detailed Diagnoses Tachycardia-bradycardia syndrome I49.5 Pneumonia due to 2019 novel coronavirus U07.1; J12.82 Orthostatic hypotension I95.1 Nonischemic cardiomyopathy I42.8 Acute kidney injury superimposed on CKD N17.9; N18.9 Hypertension I10 Hypertension type: essential hypertension Alzheimer disease G30.9; F02.80 NEERAJ (obstructive sleep apnea) G47.33
[2021-03-11] MEDS: rivaroxaban 10 mg Tablet PO (17:38)
[2021-03-12] VITALS (15 sets, daily range): BP systolic 100–128; BP diastolic 63–72; PULSE 78–99; RESP 16–24; TEMP 36.5–36.9; O2SAT 89–96
[2021-03-12] MEDS: levalbuterol 0.63 mg/3 mL Neb INHALATION ×4 (02:05→20:20)
[2021-03-12 05:10] LABS: Anion Gap 11.9 (5-19); Blood Urea Nitrogen 15 mg/dL (8-23); Carbon Dioxide 30 mmol/L (22-29); Chloride 104 mmol/L (98-107); Glucose 88 mg/dL (65-115); Osmolality Calculated 294 mOsm/kg (285-295); Potassium 3.9 mmol/L (3.5-5.1); Sodium 142 mmol/L (136-145)
[2021-03-12] MEDS: levothyroxine 50 mcg Tablet PO (06:40)
[2021-03-12] MEDS: FUROsemide 10 mg/mL SDV 2mL 20 MG IVP (08:04)
[2021-03-12] MEDS: aspirin 81 mg EC Tablet PO (08:07)
[2021-03-12] MEDS: donepezil 5 MG Tablet 10 MG PO (08:07)
[2021-03-12] MEDS: metoprolol tartrate 25 mg Tablet 6.25 MG PO ×2 (08:07→21:23)
[2021-03-12] MEDS: doxycycline 100 mg Tablet PO ×2 (08:08→17:05)
[2021-03-12] MEDS: pantoprazole DR 40 mg Tablet PO ×2 (08:08→17:05)
[2021-03-12] MEDS: venlafaxine ER (24HR) 150 mg Capsule PO (08:08)
[2021-03-12] MEDS: potassium chloride ER 20 mEq Tablet PO (08:08)
[2021-03-12] MEDS: midodrine 5 mg TABLET 10 MG PO ×3 (08:08→21:24)
[2021-03-12] MEDS: memantine 5 mg tablet 10 MG PO ×2 (08:08→17:05)
--- NOTE | 2021-03-12 09:22 | PM.PN ---
Subjective Subjective: Interval history: She is sleeping. Overnight had an episode of desaturation. Medications: Reviewed: Yes Vitals/I&O/Wt Last Vital Signs Temp 98.2 F 03/12/21 04:00 Pulse 90 03/12/21 08:38 Resp 17 03/12/21 08:38 BP 106/63 03/12/21 04:00 Pulse Ox 96 03/12/21 08:38 03/11/21 03/12/21 03/12/21 22:59 06:59 14:59 Intake Total 236 / 286 10 / 296 Output Total 1700 / 1700 500 / 2200 Balance -1464 / -1414 -490 / -1904 Physical Exam Narrative: EXAM NARRATIVE: GENERAL: elderly woman laying flat in bed in no acute distress, using 2-3 L of oxygen via nasal HEENT: No icterus. NECK: No JVD appreciated. No carotid bruit. CARDIOVASCULAR SYSTEM: S1-S2 regular. No murmur rubs or gallops. RESPIRATORY SYSTEM: AEBE, bilateral coarse rales+ in posterior lung beasley. No wheezes heard.No use of accessory muscles. ABDOMEN: Soft, nontender and nondistended. Normal bowel sounds present. EXTREMITIES: No cyanosis or clubbing. No edema. JAIL KEEPER: Patient is alert, answering simple questions and following commands SKIN: Normal turgor and temperature. Data : 03/13/21 05:54 03/13/21 05:54 Micro: Microbiology 03/06/21 20:00 Blood Culture - Final Blood NO GROWTH AFTER 5 DAYS 03/06/21 19:57 Blood Culture - Final Blood NO GROWTH AFTER 5 DAYS A&P Assessment and plan (1) Tachycardia: -continue on low dose metoprolol. -continue to monitor closely on telemetry. -Unchanged LV function on echocardiogram Status: Acute (2) Nonischemic cardiomyopathy: -Appears decompensated. -No changes on EKG. -Received Lasix 20 mg IV x1 today. Possibly transition to lasix 20 mg on discharge. -Will uptitrate midodrine to 10 mg 3 times daily. Status: Chronic (3) COVID-19: Being managed by primary team.. Status: Acute (4) Hypertension: BP soft here. Status: Chronic Qualifiers: Hypertension type: essential hypertension Qualified Code(s): I10 - Essential (primary) hypertension (5) NEERAJ (obstructive sleep apnea): Status: Chronic (6) Bradycardia: No indication for PPM. -No bradycardia noted. Status: Acute Additional A&P Information Orthostatic hypotension : started on midodrine Isolated PVCs PNA Thank you for allowing me to participate in patient's care. Please feel free to call with questions or concerns. Attestations Medical Necessity Statement*: As per primary team Time Spent in Patient Care: 16 - 35 minutes Coding Level of Care Code Acute Quality Control Specialist for g Fwd Diagnoses Tachycardia R00.0 Nonischemic cardiomyopathy I42.8 COVID-19 U07.1 Hypertension I10 Hypertension type: essential hypertension NEERAJ (obstructive sleep apnea) G47.33 Bradycardia R00.1
--- NOTE | 2021-03-12 12:29 | P.PN_ITS ---
Subjective Subjective: Interval history: Patient was seen and examined this morning, she had a rough night yesterday, was desaturating quite a bit,requiring higher supplemental oxygen. P/T recommend that due to overall deconditioning she goes to a care home facility daughter wants to take her home as she cannot take care of her. Medications: Reviewed: Yes Vitals/I&O/Wt Last Vital Signs Temp 97.8 F 03/12/21 08:00 Pulse 90 03/12/21 08:38 Resp 17 03/12/21 08:38 BP 114/68 03/12/21 08:00 Pulse Ox 96 03/12/21 08:38 03/11/21 03/12/21 03/12/21 22:59 06:59 14:59 Intake Total 236 / 286 10 / 296 Output Total 1700 / 1700 500 / 2200 Balance -1464 / -1414 -490 / -1904 Physical Exam Const: COMMON NORMALS: patient oriented x3 HENMT: COMMON NORMALS: normocephalic and atraumatic HEAD & SCALP: normocephalic and atraumatic Resp: OTHER: B/L Crackles Present in both lung beasley improving Cardio: COMMON NORMALS: regular rate, regular rhythm, S1 normal heart sound present, S2 normal heart sound present, No gallops present (Cardio), No murmurs present (Cardio), No rub (Cardio) and Peripheral pulses 2+ throughout RATE: regular rate RHYTHM: regular rhythm HEART SOUNDS: S1 normal heart sound pr esent and S2 normal heart sound present PERIPHERAL PULSES: Peripheral pulses 2+ throughout GI: COMMON NORMALS: Normal to inspection, nondistended, normoactive bowel sounds present, Soft to palpation, non-tender, No hepatosplenomegaly present and no masses AUSCULTATION: Yes normoactive bowel sounds PALPATION: Yes Soft to palpation and Yes No hepatosplenomegaly present RECTAL EXAM: deferred Extremity: COMMON NORMALS: no clubbing, cyanosis or edema and no pedal edema Neuro: COMMON NORMALS: patient oriented x3 Data : 03/11/21 10:36 03/12/21 04:26 Micro: Microbiology 03/06/21 20:00 Blood Culture - Final Blood NO GROWTH AFTER 5 DAYS 03/06/21 19:57 Blood Culture - Final Blood NO GROWTH AFTER 5 DAYS A&P Assessment and plan (1) Tachycardia-bradycardia syndrome: -Tachycardia - EKG sinus tachycardia, with LBBB -Troponin: Trend without Significant Delta - BNP 1540 -TSH :1.60 - metoprolol 6.25 twice daily -Continue telemetry monitoring -sHe is on theophylline, possibly could be contributing will hold for now -Continue Xarelto, monitor hemoglobin , Iron 21, ferritin 263, Hemoccult stool pending, continue for Protonix 40 twice daily -Continue Effexor Status: Acute (2) Pneumonia due to 2019 novel coronavirus: Chest x-ray shows diffuse pulmonary infiltrates likely secondary to underlying COVID-19, has been on Levaquin. CTA chest: Blood Culture :No Growth Sputum Culture Urine legionella antigen Bacterial antigen panel Currently on doxycycline. Status: Acute (3) Orthostatic hypotension: Midodrine 10 mg PO TID Compression Stockings Monitor orthostatic vital signs Status: Acute (4) Nonischemic cardiomyopathy: Decompensated HFrEF. Elevated Pro BNP, SOB, B/L Crackles Lasix 20 mg I.V Daily Monitor intake output K>4, Mg>2 Daily weight Status: Chronic (5) Acute kidney injury superimposed on CKD: Status: Acute (6) Hypertension: Status: Chronic Qualifiers: Hypertension type: essential hypertension Qualified Code(s): I10 - Essential (primary) hypertension (7) Alzheimer disease: -Initially Aricept, and memantine was on hold due to concerns for hypotension. Later was resumed. Status: Chronic (8) NEERAJ (obstructive sleep apnea): Status: Chronic Attestations Medical Necessity Statement*: Patient needs to be in hospital for the management of decompensated heart failure as well as PNA. Coding Level of Care Code Acute Supervisory Training Specialist for [facility] Fwd Exam Detailed Diagnoses Tachycardia-bradycardia syndrome I49.5 Pneumonia due to 2019 novel coronavirus U07.1; J12.82 Orthostatic hypotension I95.1 Nonischemic cardiomyopathy I42.8 Acute kidney injury superimposed on CKD N17.9; N18.9 Hypertension I10 Hypertension type: essential hypertension Alzheimer disease G30.9; F02.80 NEERAJ (obstructive sleep apnea) G47.33
[2021-03-12] MEDS: rivaroxaban 10 mg Tablet PO (17:05)
[2021-03-13] VITALS (14 sets, daily range): BP systolic 108–127; BP diastolic 57–85; PULSE 61–97; RESP 16–21; TEMP 36.6–36.9; O2SAT 88–95
[2021-03-13] MEDS: levalbuterol 0.63 mg/3 mL Neb INHALATION ×2 (02:03→08:50)
[2021-03-13 06:01] LABS: Basophils # 0.1 10^3/uL (0.0-0.1); Basophils % 0.7 %; Eosinophils # 0.7 10^3/uL (0.0-0.8); Eosinophils % 8.6 %; Hematocrit 33.8 % (37.0-47.0); Lymphocytes # 1.3 10^3/uL (0.8-4.8); Lymphocytes % 16.8 %; Mean Corpuscular HGB Conc 29.6 g/dL (30.0-36.0); Mean Corpuscular Hemoglobin 26.3 pg (28.0-34.0); Mean Corpuscular Volume 88.9 fl (81-99); Mean Platelet Volume 10.7 fL (7.4-10.4); Monocytes # 0.9 10^3/uL (0.2-0.9); Monocytes % 12.5 %; Neutrophils # 4.52 10^3/uL (1.8-7.7); Neutrophils % 60.1 %; Nucleated Red Blood Cells % 0 %; Platelet Count 226 10^3/cmm (130-400); Red Cell Distribution Width 15.7 % (12.1-15.1); White Blood Count 7.5 10^3/uL (4.0-10.0)
[2021-03-13 06:21] LABS: Alanine Aminotransferase < 5 U/L (0-33); Albumin Level 2.6 g/dL (3.5-5.2); Alkaline Phosphatase 69 IU/L (35-105); Aspartate Amino Transferase 12 U/L (0-32); Blood Urea Nitrogen 17 mg/dL (8-23); Carbon Dioxide 28 mmol/L (22-29); Chloride 103 mmol/L (98-107); Globulin 3.9 g/dL (1.3-4.6); Glucose 91 mg/dL (65-115); Magnesium 1.7 mg/dL (1.7-2.3); Osmolality Calculated 293 mOsm/kg (285-295); Sodium 141 mmol/L (136-145); Total Bilirubin 0.2 mg/dL (0.15-1.2); Total Protein 6.5 g/dL (6.6-8.7)
--- NOTE | 2021-03-13 06:25 | PC.NURSE ---
Frequent safety and comfort rounds continue. Orders and/or nursing care completed as indicated. Patient monitored for response to intervention and treatment(s). Education provided includes oxygen and importance of not changing oxygen flow. Patient and/or sales representative marine supplies verbalizes understanding. Will continue to monitor.
[2021-03-13] MEDS: levothyroxine 50 mcg Tablet PO (06:38)
--- NOTE | 2021-03-13 08:35 | CT_ITS ---
WS: [id number] CT angio chest PE protcl [id number] REASON FOR EXAM: R/O P/E TECHNIQUE: Coronal and sagittal 2-D and MIP reformations. IV CONTRAST ADMINISTERED: 69 mL Visipaque. TOTAL EXAM DLP: 464.[address] scans at [facility] use at least one of these dose optimization techniques: automat ed exposure control; mA and/or kV adjustment per patient size (includes targeted exams where dose is matched to clinical indication); or iterative reconstruction. FINDINGS: The current study is compared to previous examination of 02/22/2021. Four-chamber cardiac enlargement. Previously there were no pulmonary emboli. No emboli identified on the current examination. Compared to the previous CT scan of the chest the patient has developed extensive ground glass and la rge areas of consolidated lung with air bronchograms with consolidation of most of the left lung. Ext ensive changes in the central and peripheral portions of the right lung. Findings congruent with the chest x-ray findings. Small left pleural effusion. CT/CT angio chest PE protcl [id number] IMPRESSION: No pulmonary emboli. Significant progression of pulmonary infiltrates with consolidation of most of the left lung.
[2021-03-13] MEDS: doxycycline 100 mg Tablet PO (08:37)
[2021-03-13] MEDS: memantine 5 mg tablet 10 MG PO ×2 (08:37→19:08)
[2021-03-13] MEDS: metoprolol tartrate 25 mg Tablet 6.25 MG PO (08:37)
[2021-03-13] MEDS: midodrine 5 mg TABLET 10 MG PO ×2 (08:38→16:49)
[2021-03-13] MEDS: donepezil 5 MG Tablet 10 MG PO (08:38)
[2021-03-13] MEDS: pantoprazole DR 40 mg Tablet PO ×2 (08:38→19:09)
[2021-03-13] MEDS: potassium chloride ER 20 mEq Tablet PO (08:38)
[2021-03-13] MEDS: venlafaxine ER (24HR) 150 mg Capsule PO (08:38)
[2021-03-13] MEDS: aspirin 81 mg EC Tablet PO (08:38)
--- NOTE | 2021-03-13 09:21 | USCV_ITS ---
Jacques Danyelle Age: 80 Gender: F : 1940 Exam Date: 03/13/2021 14:17 Ordering Phys: Homer Beckford MD Technologist: Shaniqua Sampson [place] [facility] [place]: Swelling HISTORY: Lower extremity swelling. PROCEDURES: Venous duplex imaging was performed in bilateral lower extremities. The following venous structures were evaluated: common femoral vein, profunda vein, proximal portion of the greater saphenous vein, superficial femoral vein, and the popliteal vein. In addition, the posterior tibial and peroneal trunk were evaluated. FINDINGS: Normal 2-D Doppler and augmentation and compressibility throughout the lower extremity venous structures. Additional imaging through the proximal calf veins also reveals no thrombus. Limited evaluation of the greater saphenous vein is patent with no thrombus. CONCLUSIONS No DVT bilateral lower extremities. Dr. Carina Barnett DO (Electronically Signed) Final Date: 13 March 2021 15:12 S
[2021-03-13] MEDS: iodixanol 320 mg/mL 100mL Btl IV (10:28)
[2021-03-13] MEDS: FUROsemide 10 mg/mL SDV 2mL 20 MG IVP (11:13)
--- NOTE | 2021-03-13 11:25 | PC.NURSE ---
ushered via wheelchair to CT scan w/ nurse for chest CT scan w/ contrast
--- NOTE | 2021-03-13 14:57 | PC.CHAP ---
Pastoral Care Encounter/Spiritual Assessment Type of Contact [] Declined wincher visit [] Patient/Family/Request visit [] Outpatient visit [xx] Follow-up visit [] Physician referral [] Code/Alert [xx] Routine visit [] Staff referral [] Actively dying [] Patient sleeping [] Family support [] [] Out of room [] Palliative care [] [] Receiving care in room [] Pre-surgical visit [] Trauma [xx] Long length of stay [] ICU visit [] Other: Relational/Emotional Strength [xx] Patient feels connected with others/family/visitors/staff [] Distress [] Loneliness/isolation [] Abandonment Spirituality of Patient [xx] Person of Bernice [] Attends Mu-Ism of their Bernice [xx] Believes in Prayer [xx] Reads Bible or Episcopal materials [] There are Spiritual issues to be addressed Executor Of Estate Interventions [xx] Prayer [xx] Active listening [xx] Non-anxious presence [] Spiritual/emotional support [] Crisis/trauma care [] Spiritual counseling [] Bereavement support [] Provided bereavement packet [xx] Provided Bible/devotional materials [] Provided toy/stuffed animal, coloring book to patient or family member [] Provided Communion [] Anointing/[place] [] Salvation [xx] Completed spiritual assessment [] Other: Impact on Illness or Injury [] Angry [] Fearful [] Anxious [] Often cries [] Exhaustion [] Unable to work [] Unable to attend synagogue [] Unable to walk/stand [] Unable to read [] Unable to drive [] Unable to eat/drink [] Unable to sleep [] Unable to be with family [] Patient intubated [] Other: Summary [employer] Daily [employer] given to patient. Patient stated she is taking one day at a time and thanking God for each day. Time spent with patient 12 minujtes
--- NOTE | 2021-03-13 15:33 | P.PN_ITS ---
Subjective Subjective: Interval history: She had venous duplex that did not show any DVT. CT chest showed no PE and progression of pulmonary infiltrates with consolidation of most of the left lung. Medications: Reviewed: Yes Medication Review Details: Current Medications Acetaminophen (Acetaminophen 325 Mg Tablet) 650 mg PO Q6H PRN PRN Reason: Mild/Mod Pain Or Temp >/= 101 Aspirin (Aspirin 81 Mg Ec Tablet) 81 mg PO DAILY [facility] Last Admin: 03/13/21 08:38 Dose: 81 mg Documented by: Donepezil HCl (Donepezil 5 Mg Tablet) 10 mg PO DAILY [facility] Last Admin: 03/13/21 08:38 Dose: 10 mg Documented by: Doxycycline Monohydrate (Doxycycline 100 Mg Tablet) 100 mg PO BID [facility]; Protocol Last Admin: 03/13/21 08:37 Dose: 100 mg Documented by: Furosemide (Furosemide 10 Mg/Ml Sdv 2ml) 20 mg IVP DAILY [facility] Last Admin: 03/13/21 11:13 Dose: 20 mg Documented by: Levalbuterol HCl (Levalbuterol 0.63 Mg/3 Ml Neb) 0.63 mg INHALATION Q6H.RESPIRATORY [facility] Last Admin: 03/13/21 08:50 Dose: 0.63 mg Documented by: Levothyroxine Sodium (Levothyroxine 50 Mcg Tablet) 50 mcg PO QAM [facility] Last Admin: 03/13/21 06:38 Dose: 50 mcg Documented by: Memantine (Memantine 5 Mg Tablet) 10 mg PO BID [facility] Last Admin: 03/13/21 08:37 Dose: 10 mg Documented by: Metoprolol Tartrate (Metoprolol Tartrate 25 Mg Tablet) 6.25 mg PO BID@0900,2100 [facility] Last Admin: 03/13/21 08:37 Dose: 6.25 mg Documented by: Midodrine (Midodrine 5 Mg Tablet) 10 mg PO TID [facility] Last Admin: 03/13/21 08:38 Dose: 10 mg Documented by: Ondansetron HCl (Ondansetron 2 Mg/Ml Sdv 2 Ml) 4 mg IVP Q8H PRN PRN Reason: vomiting, or N/V if npo Pantoprazole Sodium (Pantoprazole Dr 40 Mg Tablet) 40 mg PO BID [facility] Last Admin: 03/13/21 08:38 Dose: 40 mg Documented by: Potassium Chloride (Potassium Chloride Er 20 Meq Tablet) 20 meq PO DAILY [facility] Last Admin: 03/13/21 08:38 Dose: 20 meq Documented by: Rivaroxaban (Rivaroxaban 10 Mg Tablet) 10 mg PO Q24H [facility] Last Admin: 03/12/21 17:05 Dose: 10 mg Documented by: Venlafaxine HCl (Venlafaxine Er (24hr) 150 Mg Capsule) 150 mg PO DAILY [facility] Last Admin: 03/13/21 08:38 Dose: 150 mg Documented by: Vitals/I&O/Wt Last Vital Signs Temp 97.8 F 03/13/21 13:03 Pulse 81 03/13/21 13:03 Resp 18 03/13/21 13:03 BP 108/58 03/13/21 13:03 Pulse Ox 93 03/13/21 13:03 03/13/21 03/13/21 03/13/21 06:59 14:59 22:59 Intake Total 396 / 396 Output Total 500 / 500 400 / 400 Balance -104 / -104 -400 / -400 Physical Exam Narrative: EXAM NARRATIVE: GENERAL: elderly woman laying flat in bed in no acute distress, using 2-3 L of oxygen via nasal HEENT: No icterus. NECK: No JVD appreciated. No carotid bruit. CARDIOVASCULAR SYSTEM: S1-S2 regular. No murmur rubs or gallops. RESPIRATORY SYSTEM: AEBE, bilateral coarse rales+ in posterior lung beasley. No wheezes heard.No use of accessory muscles. ABDOMEN: Soft, nontender and nondistended. Normal bowel sounds present. EXTREMITIES: No cyanosis or clubbing. No edema. COSMETIC COUNSELOR: Patient is alert, answering simple questions and following commands SKIN: Normal turgor and temperature. Data : 03/13/21 05:54 03/13/21 05:54 A&P Assessment and plan (1) Tachycardia: -continue on low dose metoprolol. -continue to monitor closely on telemetry. -Unchanged LV function on echocardiogram (2) Nonischemic cardiomyopathy: -HFrEF (LVEF ~30%), -No changes on EKG. -continue on lasix 20 mg on discharge. -continue midodrine to 10 mg 3 times daily. (3) COVID-19: Superimposed PNA -Being managed by primary team. (4) Hypertension: BP soft here. Qualifiers: Hypertension type: essential hypertension Qualified Code(s): I10 - Essential (primary) hypertension (5) NEERAJ (obstructive sleep apnea): (6) Bradycardia: No indication for PPM. -No bradycardia noted. Additional A&P Information Orthostatic hypotension : Continue midodrine 10 mg 3 times daily. Isolated PVCs/ NSVT Anemia Thank you for allowing me to participate in patient's care. Please feel free to call with questions or concerns. 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
--- NOTE | 2021-03-13 16:35 | P.DS_ITS ---
Discharge Providers Date of Admission: 03/06/21 13:56 Date of Discharge: March 13, 2021 Attending Provider at Admission: James Crowder MD Attending Provider at Discharge: Homer Beckford MD Primary Care Provider: Alba Dueñas MD Diagnoses at Discharge Discharge Diagnosis (1) Tachycardia: Status: Resolved (2) Nonischemic cardiomyopathy: Status: Chronic (3) COVID-19: Status: Acute (4) Hypertension: Status: Chronic Qualifiers: Hypertension type: essential hypertension Qualified Code(s): I10 - Essential (primary) hypertension (5) NEERAJ (obstructive sleep apnea): Status: Chronic (6) Bradycardia: Status: Acute Reason for Visit 2 Reason for Visit: Dropping HR, Faint Feeling Hospital Course Hospital Course 80 year old female with a past medical history of Alzheimer's dementia, COPD, cardiomyopathy, EF of 35%, past history of NEERAJ, not adherent with CPAP, recent history of COVID-19 pneumonia, discharged on 2 L, discharged on Xarelto therapy for VT prophylaxis, who presents to [facility] due to concerns for low and elevated heart rate, low blood pressures, increased oxygen requirements, fatigue, malaise, increased confusion. Patient was admitted for the management of possible tachybradycardia syndrome, as well as pneumonia. Cardiology was on board she was monitored on telemetry, she has tachycardia, for which she was continued on Low-dose beta-taiwo, was discharged on carvedilol 6.25 mg p.o. twice daily, during the hospital stay she was also managed for pneumonia, she was kept on antibiotics, blood cultures were negative, she was kept on other respiratory support measures. She was also managed for orthostatic hypotension, initially she was hydrated with IV fluids, but unfortunately she went into volume overload and developed decompensated heart failure with ejection fraction, she responded well to IV Lasix, at the time of discharge she was euvolemic, midodrine 10 mg p.o. 3 times daily was added to help with the orthostatic hypotension, at the time of discharge orthostatic hypotension was negative. CT angio chest and bilateral lower extremity Doppler was done during this hospital stay no clots were identified, Xarelto was discontinued on the discharge. Patient responded well to the above medical management she qualified for 3 Ls home oxygen and is being discharged in stable condition to home, on discharge she has been given levofloxacin as well as doxycycline for 1 week. She will follow cardiology and pulmonology and primary care physician as an outpatient. Physical Exam Const: COMMON NORMALS: patient oriented x3 HENMT: COMMON NORMALS: normocephalic HEAD & SCALP: normocephalic Resp: EFFORT & INSPECTION: Yes symmetric chest movement OTHER: minimal basal crackles in lt lung beasley Cardio: COMMON NORMALS: regular rate, regular rhythm, S1 normal heart sound present, S2 normal heart sound present, No gallops present (Cardio), No murmurs present (Cardio), No rub (Cardio) and Peripheral pulses 2+ throughout RATE: regular rate RHYTHM: regular rhythm HEART SOUNDS: S1 normal heart sound present and S2 normal heart sound present PERIPHERAL PULSES: Peripheral pulses 2+ throughout GI: COMMON NORMALS: Normal to inspection, nondistended, normoactive bowel s ounds present, Soft to palpation, non-tender, No hepatosplenomegaly present and no masses AUSCULTATION: Yes normoactive bowel sounds PALPATION: Yes Soft to palpation and Yes No hepatosplenomegaly present RECTAL EXAM: deferred Extremity: COMMON NORMALS: no clubbing, cyanosis or edema and no pedal edema Neuro: COMMON NORMALS: patient oriented x3 Discharge Data Data Completed and Pending: Completed Studies During Hospitalization Category Date Time Status CT angio chest PE protcl [id number] Rout ine Cat Scan 03/13/21 08:35 Completed XR chest 1V minerva ble [id number] Routine Exams 03/11/21 08:01 Completed XR chest 1V minerva ble [id number] Urgent Exams 03/06/21 12:34 [place] [id number] Routin e Ultrasound 03/13/21 09:21 Completed CV. echo limited [id number] Routine Ultrasound 03/07/21 10:30 Completed Pending at discharge Category Date Time Status Bacterial Antigen Routine Lab 03/12/21 17:23 Uncollected Complete Blood Co unt w/Auto AM LABS Lab 03/14/21 04:00 Ordered Complete Blood Co unt w/Auto AM LABS Lab 03/15/21 04:00 Ordered Comprehensive Met abolic Panel AM LA BS Lab 03/14/21 04:00 Ordered Comprehensive Met abolic Panel AM LA BS Lab 03/15/21 04:00 Ordered Legionella Antige n STAT Routine Lab 03/12/21 17:23 Uncollected MRSA by PCR Routi ne Lab 03/13/21 15:47 Uncollected Magnesium AM LABS Lab 03/14/21 04:00 Ordered Magnesium AM LABS Lab 03/15/21 04:00 Ordered Sputum Culture Ro utine Lab 03/12/21 17:22 Uncollected Sputum Culture an d Gram Stain Stat Lab 03/06/21 17:47 Uncollected Labs from last 24 hours 03/13/21 03/13/21 05:54 05:54 WBC 7.5 RBC 3.80 L Hgb 10.0 L Hct 33.8 L MCV 88.9 MCH 26.3 L MCHC 29.6 L RDW 15.7 H Plt Count 226 MPV 10.7 H Neut % (Auto) 60.1 Lymph % (Auto) 16.8 [place] % (Auto) 12.5 Eos % (Auto) 8.6 Baso % (Auto) 0.7 Neut # (Auto) 4.52 Lymph # (Auto) 1.3 [place] # (Auto) 0.9 Eos # (Auto) 0.7 Baso # (Auto) 0.1 Nucleated RBC % (a uto) 0 Nucleated RBCs # 0.0 Sodium 141 Potassium 4.0 Chloride 103 Carbon Dioxide 28 Anion Gap 14.0 BUN 17 Creatinine 1.1 H GFR Calculation Not Reportable Glucose 91 Calculated Osmolal ity 293 Calcium 9.0 Magnesium 1.7 Total Bilirubin 0.2 AST 12 ALT < 5 Alkaline Phosphata se 69 Total Protein 6.5 L Albumin 2.6 L Globulin 3.9 Vitals: Last Vital Signs Temp 97.8 F 03/13/21 13:03 Pulse 81 03/13/21 13:03 Resp 18 03/13/21 13:03 BP 108/58 03/13/21 13:03 Pulse Ox 88 L 03/13/21 16:25 Discharge Plan Discharge Patient Disposition: Home Condition: Stable Prescriptions: New levofloxacin 500 mg tablet 500 mg PO Q48H 7 Days Qty: 4 RF: 0 doxycycline hyclate 100 mg tablet 100 mg PO BID 7 Days Qty: 14 RF: 0 midodrine 10 mg tablet 10 mg PO TID Qty: 90 RF: 0 Continued levothyroxine 50 mcg tablet 50 mcg PO DAILY RF: 0 aspirin 325 mg tablet 325 mg PO DAILY RF: 0 nitroglycerin [Nitrostat] 0.4 mg tablet, sublingual 0.4 mg SUBLINGUAL Q5M PRN (Reason: chest pain) Qty: 25 RF: 3 omeprazole 20 mg tablet,delayed release (DR/EC) 20 mg PO BID RF: 0 memantine [Namenda] 10 mg tablet 10 mg PO BID 7 Days Qty: 14 RF: 0 venlafaxine [Effexor XR] 150 mg capsule,extended release 24hr 150 mg PO DAILY Qty: 90 RF: 1 ondansetron HCl [Zofran] 4 mg tablet 4 mg PO Q6H PRN (Reason: nausea and vomiting) Qty: 14 RF: 0 theophylline 400 mg tablet extended release 24 hr 400 mg PO DAILY RF: 0 acetaminophen 500 mg Tablet 1,000 mg PO PRN RF: 0 donepezil [Aricept] 10 mg tablet 10 mg PO DAILY RF: 0 ipratropium-albuterol 0.5 mg-3 mg(2.5 mg base)/3 mL solution for nebulization 3 ml inhalation Q6H PRN (Reason: shortness of breath or wheezing) Qty: 90 RF: 0 Glucosamine Chondroitin 550-30-1 mg Capsule 1 cap PO DAILY RF: 0 potassium chloride 10 mEq capsule, extended release 10 meq PO DAILY PRN (Reason: With Lasix) Qty: 30 RF: 0 Lasix 40 mg tablet 40 mg PO DAILY PRN (Reason: Edema) RF: 0 carvedilol 6.25 mg tablet 6.25 mg PO BID RF: 0 Changed isosorbide mononitrate 60 mg tablet extended release 24 hr 30 mg PO DAILY Qty: 0 RF: 0 Held lisinopril 5 mg Tablet 5 mg PO DAILY Qty: 30 RF: 0 Hold Instructions: Resume on 03/20/21. Discontinued Xarelto 10 mg tablet 10 mg PO DAILY 28 Days Qty: 28 RF: 0 levofloxacin 500 mg tablet 500 mg PO EVERY OTHER DAY RF: 0 Discharge Orders: Discharge Order (Routine); Ordered 03/13/21 Ordered By: Homer Beckford Other Ambulatory Orders: DME: Meri (Order) Location: None Selected Ordered By: Kin Arizmendi DME: Joo (Order) Location: None Selected Ordered By: Homer Beckford Referrals: Abla Dueñas MD [Primary Care Provider] - 1 week ([facility] will be calling to schedule a hospital followup with Dr. Dueñas to be seen in 1 week. If you don't hear from them by Dave afternoon, please give them a call. Thank you) Santos Hall M.D [Physician] - 1 week Lei Harvey MD [Physician] - 1 week ([facility]air will be calling to schedule a Pulmonology followup with Dr. Harvey to be seen in 1 week. If you don't hear from them by Tuesday, please give them a call. Thank you) Discharge Diet: Regular Discharge Activity: Increase activity as tolerated Patient Instructions: Doxycycline (By mouth), Levofloxacin (By mouth), Opioid Safety Discharge Attestations Time Spent in Discharge Care*: less than 30 min Specific Discharge Activities: educating patient, educating and/or supporting family/caregiver, discussing with pcp/other providers, discussing with case packer/social workers/dc planners, documenting/other paperwork and evaluating patient/reviewing data Status at Discharge: Cognitive status at discharge: cognitively intact , Behavioral status at discharge: cooperative , Functional status at discharge: independent ambulation Overall status at discharge: patient is progressing back to baseline Quality Metrics Clinical Quality Measures During this hospital stay, did patient experience: None Coding Level of Care Code Acute [facility] DC note Exam Detailed Diagnoses Tachycardia R00.0 Nonischemic cardiomyopathy I42.8 COVID-19 U07.1 Hypertension I10 Hypertension type: essential hypertension NEERAJ (obstructive sleep apnea) G47.33 Bradycardia R00.1
--- NOTE | 2021-03-13 16:45 | PC.NURSE ---
Dgtr stated that pt needs a new portable tank that has a continues oxygen flow Talked to [facility] and they said they will bring it and will need an new order for her oxygen.
--- NOTE | 2021-03-13 18:00 | PC.NURSE ---
[facility] delivered her oxygen from home
--- NOTE | 2021-03-13 18:18 | PC.NURSE ---
meds to bed delivered
--- NOTE | 2021-03-13 20:13 | PC.NURSE ---
Discharge Note Upon discharge patient received her portable oxygen from [facility] 4 L/min is on, pt has a new portable O2 tank conserver and it is working. Per dgtr the tank is not working and she can't hear it. Double check and it is working when Instructed pt to take breaths through her nose in order to work the oxygen. Dgtr called [facility]ola via phone that she can take our portable tank and Nicola can bring it back to our facility. Dgtr refused to bring our portable tank since we got the new one working now from [facility] Pt spO2 sat on our monitor fluctuates between 88 to 94% on 4 L/min. Dgtr brought her own SpO2 probe but reads between 76% to 86%. I told the daughter her pulse ox probe needs to be change or she needs to buy a new one. Reassured dgtr regarding her oxygenation is tolerating pt well which reflects on our monitor. Dgtr has questions regarding stopped meds and continued meds upon on her discharge, spoke to Dr. Beckford via secure voalte and he made changes to her meds and discuss at bedside w/ dgtr and pt. Dr Arizmendi was called regarding the episode of her oxygenation drop shortly with dgtr's own pulse probe upon transfer to wheelchair but our monitor shows w/in normal levels spo2. Pt verbalizes of going home than staying overnight when asked. Dr. Arizmendi is okay for pt to be between 88% to 92% on her oxygen. Patient discharged to home with home health services via wheelchair accompanied by dgtr. Discharge instructions reviewed with patient and/or cash applications representative. Mobile pharmacy medications and/or prescriptions provided. Belongings/home medications returned.
--- NOTE | 2021-03-16 09:14 | PC.SOCIAL ---
discharge follow up call made. spoke with pts daughter, Shalini. Patient is doing ok. Still having fluctuating blood pressures, but they are keeping a log to give to pcp. patient had nausea yesterday but that has subsided today. All new medications were picked up from the pharmacy and patient is taking as directed. Informed daughter that heartcare services will call them with appointments. Facilities Painter will also follow up this afternoon to make sure appointments have been made. fha underwriter has attempted to call and make follow up with Dr. Dueñas but fha underwriter hasn't gotten through, fha underwriter will continue to get appointment.
--- NOTE | 2021-03-16 10:26 | PC.SOCIAL ---
updated daughter on pts follow up appointment with pcp.
--- NOTE | 2021-03-16 11:27 | PC.SOCIAL ---
left a message with daughter Shalini regarding follow up with Dr. Harvey and Dr. Hall.
== END 2021-03-13 20:54 | disposition home health service (06) | DRG 308 ==
LOC: ER 13:55 → CSU 15:25
PROVIDERS: Family Medicine; Internal Medicine Cardiovascular Disease; Admitting Provider Internal Medicine; Emergency Provider Emergency Medicine; PCP Family Medicine; Visit Provider Internal Medicine
DX: I49.5 Sick sinus syndrome (principal); I50.23 Acute on chronic systolic (congestive) heart failure; J12.82 Pneumonia due to coronavirus disease 2019; I13.0 Hypertensive heart and chronic kidney disease with heart failure and stage 1 through stage 4 chronic kidney disease, or unspecified chronic kidney disease; N17.9 Acute kidney failure, unspecified; I25.10 Atherosclerotic heart disease of native coronary artery without angina pectoris; N18.9 Chronic kidney disease, unspecified; E11.22 Type 2 diabetes mellitus with diabetic chronic kidney disease; I42.8 Other cardiomyopathies; Z86.16 Personal history of COVID-19; G30.9 Alzheimer's disease, unspecified; F02.80 Dementia in other diseases classified elsewhere, unspecified severity, without behavioral disturbance, psychotic disturbance, mood disturbance, and anxiety; J44.9 Chronic obstructive pulmonary disease, unspecified; K21.9 Gastro-esophageal reflux disease without esophagitis; Z85.828 Personal history of other malignant neoplasm of skin; E03.9 Hypothyroidism, unspecified; G47.33 Obstructive sleep apnea (adult) (pediatric); M81.0 Age-related osteoporosis without current pathological fracture; Z99.81 Dependence on supplemental oxygen; I95.1 Orthostatic hypotension; I44.7 Left bundle-branch block, unspecified; Z66 Do not resuscitate
CPT/HCPCS: 36415; 71045; 71275; 80048; 80053; 80198; 81001; 82550; 82607; 82728; 82746; 83540; 83550; 83690; 83735; 83880; 84100; 84145; 84443; 84484; 85025; 85045; 86140; 87040; 92526; 92610; 93005; 93308; 93970; 94640; 94664; 97110; 97116; 97161; 97530; 99285; J1940; J3475; J7030; J7614; Q9967

== ENCOUNTER → 2021-03-31 15:14 | Outpatient (BNVA) | payer MEDICARE, OTHER, SELFPAY | PROVIDERS: PCP Family Medicine; Visit Provider Specialist | DX: G30.9 Alzheimer's disease, unspecified (principal); F02.80 Dementia in other diseases classified elsewhere, unspecified severity, without behavioral disturbance, psychotic disturbance, mood disturbance, and anxiety | CPT/HCPCS: 96116; 99214 ==

== ENCOUNTER 2021-04-02 17:05 | Inpatient (IN) | payer MEDICARE, OTHER, SELFPAY ==
[2021-04-02] VITALS (12 sets, daily range): BP systolic 108–128; BP diastolic 70–88; PULSE 70–130; RESP 24–39; TEMP 36.6; O2SAT 88–96; BMI 32.0
--- NOTE | 2021-04-02 17:19 | XRR_ITS ---
PROCEDURE INFORMATION: Exam: XR Chest Exam date and time: 04/02/2021 5:19 PM Age: 80 years old Clinical indication: Cough and shortness of breath; Additional info: Dyspnea/cough TECHNIQUE: Imaging protocol: XR of the chest. Views: 1 view. COMPARISON: CR XR chest 1V portable [id number] 03/11/2021 8:08 AM FINDINGS: Lungs: Dense airspace opacities throughout the left lung have increased slightly. Airspace opacities in the right upper lobe and right lung base have increased significantly. Pleural spaces: Unremarkable. No pleural effusion. No pneumothorax. Heart/Mediastinum: The heart size is upper normal. Bones/joints: Unremarkable. XR/XR chest 1V portable [id number] IMPRESSION: 1. Worsened multilobar pneumonia. Radiation Dose CTDIVOL = (mGy): DLP = (mGy-cm)
--- NOTE | 2021-04-02 17:20 | ECG_ITS ---
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 Measurements Intervals Evans Rate: 147 P: [place]: QRS: 223 QRSD: 138 T: 140 QT: 298 QTc: 467 Interpretive Statements Possible ATRIAL FLUTTER WITH RAPID VENTRICULAR RESPONSE INTRAVENTRICULAR CONDUCTION DELAY Left axis deviation Compared to ECG 03/06/2021 17:17:14 Intraventricular conduction delay now present Atrial abnormality now present Sinus rhythm no longer present Electronically Signed On 04-03-2021 19:34:18 CDT by Tatianna Dangelo M.D. [email or web address]
[2021-04-02 17:23] LABS: ABG PCO2 43.5 mmHg (35-45); ABG PH Result 7.41 (7.35-7.45); Alveolar-Arterial Oxygen Gradi 78.3 mmHg (5-10); Arterial Blood Gas Hematocrit 34.1 % (37-47); Base Excess ABG 2.7 mmol/L (-2.0-2.0); Blood Gas Allen Test Pos; Blood Gas Sample Site Radial, right; Blood Gas Sample Type Arterial; Carboxyhemoglobin 1.3 %THgb (0.4-20.1); HCO3 ABG 27.7 mmol/L (22-26); HGB O2 Sat 89.2 % (95-100); Ionized Calcium Level - ABG 1.2 mmol/L (1.1-1.4); Oxygen Device NRB; Oxygen Saturation ABG 90.4; PO2 ABG 56.7 mmHg (80.0-100.0); Total Hemoglobin 11.1 g/dL (12-16)
--- NOTE | 2021-04-02 17:24 | W.ED.SOB ---
Documented by User: Gino Moore DO 04/03/21 07:10 HPI - SOB/Dyspnea General: Chief Complaint: Shortness of Breath/Dyspnea Stated Complaint: SOB/ DIFFICULTY BREATHING Time Seen by Provider: 04/02/21 17:19 History of Present Illness: HPI Narrative: 80-year-old female with moderate dementia arrives in the emergency room via EMS with severe hypoxia. Patient has a history of asthma/COPD and some congestive heart failure. Patient was diagnosed with Covid on 02/22/2021. EMS on arrival found the patient to be in the lower 80% range on 4 L. She was started on 15 L nonrebreather mask and improved to the mid and upper 80s. She is disoriented to able to answer questions initially she stated she did want to be intubated we are unaware of her diagnosis of dementia daughter arrived and stated she has dementia the daughter has power of commercial litigation paralegal and states that he had previously decided with the patient not to pursue ventilator care if she had any serious illness. Yesterday patient had some chest pain today she just progressively became more and more short of breath they did give some albuterol treatments and 20 mg of prednisone which did not seem to help. No reports of fever. Patient is not on any anticoagulants. MD elicited complaint: shortness of breath and cough Pertinent past history: COPD, asthma and congestive heart failure Onset (ago): hour(s) Context: recent illness (Late January early February was hospitalized for Covid.) Timing: intermittent Severity: moderate Exacerbating factors: exertion and coughing Relieving factors: oxygen and rest Associated symptoms: Reports chest congestion, chest pain and cough; Deny abdominal pain, diaphoresis, dizziness, extremity pain, fever(s), hemoptysis, lightheadedness, myalgias, nausea, orthopnea, palpitations, paresthesias, polydipsia, polyuria, rash, sense of impending doom, syncope or vomiting Treatment prior to arrival: oxygen, bronchodilator and other (P.o. steroids) Review of Systems Const: Denies: fever(s) or diaphoresis ENMT: Denies: throat pain, ear or mastoid pain, nasal discharge or nasal congestion Card: Reports: chest pain; Denies: palpitations, lightheadedness, syncope or orthopnea Resp: Reports: chest congestion; Denies: hemoptysis GI: Denies: abdominal pain, nausea or vomiting : Denies: flank pain, difficulty voiding, dysuria, urinary frequency or urinary urgency Musc: Denies: extremity pain Skin/Breast: Denies: rash or pruritus Neuro: Denies: dizziness Endo: Denies: polyuria or polydipsia PFSH ED PFSH: Medical History (Updated 04/02/21 @ 18:46 by Kin Arizmendi MD) Acute kidney injury superimposed on CKD Alzheimer disease 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 Bradycardia CHF (congestive heart failure) CKD (chronic kidney disease) COPD (chronic obstructive pulmonary disease) COVID-19 COVID-19 DDD (degenerative disc disease) GERD (gastroesophageal reflux disease) History of skin cancer treated with excision Hypertension Hypothyroidism Light headed Nonischemic cardiomyopathy Orthostatic hypotension NEERAJ (obstructive sleep apnea) Osteoporosis Pneumonia due to 2019 novel coronavirus Tachycardia Tachycardia-bradycardia syndrome Surgical History H/O carpal tunnel repair H/O cataract extraction H/O: hysterectomy Family History Father CAD (coronary artery disease) Myocardial infarction Mother CAD (coronary artery disease) Myocardial infarction Sister CAD (coronary artery disease) Myocardial infarction Brother CAD (coronary artery disease) Myocardial infarction Daughter Cancer COLON Social History Alcohol intake: never Household members: family Marital status: / Female Reproductive History: Date of last menstrual period: 09/18/20 Physical Exam Const: COMMON NORMALS: no acute distress GENERAL APPEARANCE: cooperative and comfortable ORIENTATION/CONSCIOUSNESS: Yes awake, Yes oriented to person, Yes oriented to place and Yes oriented to time HENMT: COMMON NORMALS: normocephalic, atraumatic, hearing grossly normal bilaterally, external ears normal, EAC's normal, TM's normal bilaterally, Normal nasal mucous membranes and turbinates present, moist oral mucous membranes and oropharynx normal HEAD & SCALP: normocephalic and atraumatic NOSE: Normal nasal mucous membranes and turbinates present EXTERNAL EAR: Yes external ears normal EXTERNAL AUDITORY CANAL: EAC's normal TYMPANIC MEMBRANE: TM's normal bilaterally Eye: COMMON NORMALS: Equal, round and reactive pupils present, EOMs intact bilaterally, conjunctivae normal and no scleral icterus CONJUNCTIVA: Yes conjunctivae normal PUPIL: Yes Equal, round and reactive pupils present Neck/C-Spine: COMMON NORMALS: full ROM, no lymphadenopathy, supple and no JVD Lymph: LYMPHATIC: no lymphadenopathy noted and no lymphedema noted Resp: AUSCULTATION: rhonchi and wheezes Cardio: COMMON NORMALS: no JVD, regular rate, regular rhythm and No murmurs present (Cardio) RATE: regular rate RHYTHM: regular rhythm GI: COMMON NORMALS: Soft to palpation and No hepatosplenomegaly present AUSCULTATION: Yes normoactive bowel sounds PALPATION: Yes Soft to palpation, No Tenderness to palpation present (GI), No Guarding due to palpation present (GI) and Yes No hepatosplenomegaly present Extremity: COMMON NORMALS: normal to inspection, capillary refill normal, no clubbing, cyanosis or edema, no calf tenderness and no pedal edema Neuro: SENSORIUM/ORIENTATION: Yes oriented to person, Yes oriented to place and Yes oriented to time Skin: COMMON NORMALS: no rashes or lesions noted GENERAL SKIN EXAM: no rashes or lesions noted Course Vital Signs: Vital signs: Vital Signs Temperature 98.2 F 04/03/21 04:00 Pulse Rate 130 H 04/03/21 06:03 Respiratory Rate 24 H 04/03/21 06:03 Blood Pressure 105/68 04/03/21 06:03 Pulse Oximetry 90 04/03/21 04:00 MDM - SOB/Dyspnea MDM Narrative: Medical decision making narrative: Patient acute decompensated congestive heart failure. Family has decided they do not want to pursue intubation or ventilation which she would be a candidate for at this point in other circumstances. I do agree with their plan they have previously discussed with the patient about resuscitation status and she has fairly significant dementia. She is given Lasix started on BiPAP. Care turned over to Dr. Leos at change of shift see his note for final diagnosis and disposition labs still pending imaging shows significant heart failure. Lab Data: Labs: Lab Results 04/02/21 04/02/21 04/02/21 17:06 17:06 17:06 WBC 17.8 10^3/uL H 10 ^3/uL (4.0-10.0) RBC 4.26 10^6/uL 10^6 /uL (4.1-5.3) Hgb 11.5 g/dL g/dL (11.5-15.3) Hct 37.8 % % (37.0-47.0) MCV 88.7 fl fl (81-99) MCH 27.0 pg L pg (28.0-34.0) MCHC 30.4 g/dL g/dL (30.0-36.0) RDW 15.9 % H % (12.1-15.1) Plt Count 240 10^3/cmm 10^3 /cmm (130-400) MPV 12.4 fL H fL (7.4-10.4) Neut % (Auto) 82.4 % % Lymph % (Auto) 6.5 % % Wright % (Auto) 9.3 % % Eos % (Auto) 0.6 % % Baso % (Auto) 0.4 % % Neut # (Auto) 14.66 10^3/uL H 1 0^3/uL (1.8-7.7) Lymph # (Auto) 1.2 10^3/uL 10^3/ uL (0.8-4.8) Wright # (Auto) 1.7 10^3/uL H 10^ 3/uL (0.2-0.9) Eos # (Auto) 0.1 10^3/uL 10^3/ uL (0.0-0.8) Baso # (Auto) 0.1 10^3/uL 10^3/ uL (0.0-0.1) Nucleated RBC % (a uto) 0 % % Nucleated RBCs # 0.0 /100WBC /100W BC D-Dimer Specimen Type Sample Site ABG pH ABG pCO2 ABG pO2 ABG HCO3 ABG O2 Saturation ABG Base Excess Christian Test A-a O2 Gradient Hematocrit Hgb O2 Saturation Carboxyhemoglobin Methemoglobin Total Hemoglobin Ionized Calcium O2 Delivery Device O2 Liters/Min FiO2 Transportation Officer ID Sodium 132 mmol/L L mmol /L (136-145) Potassium 4.0 mmol/L mmol/L (3.5-5.1) Chloride 95 mmol/L L mmol/ L (98-107) Carbon Dioxide 24 mmol/L mmol/L (22-29) Anion Gap 17.0 (5-19) BUN 12 mg/dL mg/dL (8-23) Creatinine 1.0 mg/dL H mg/dL (0.5-0.9) GFR Calculation Not Reportable Glucose 89 mg/dL mg/dL (65-115) Calculated Osmolal ity 273 mOsm/kg L mOs m/kg (285-295) Lactic Acid Calcium 8.6 mg/dL mg/dL (8.5-10.5) Total Bilirubin 0.2 mg/dL mg/dL (0.15-1.2) AST 13 U/L U/L (0-32) ALT 8 U/L U/L (0-33) Alkaline Phosphata se 95 IU/L IU/L (35-105) Creatine Kinase 32 U/L U/L (26-192) Troponin T Baselin e 36 ng/L H ng/L (0-10) Troponin T 120 Min [place] Troponin T C-Reactive Protein NT-Pro-B Natriuret Pep 56044 pg/mL H pg/ mL (0-450) Total Protein 7.5 g/dL g/dL (6.6-8.7) Albumin 2.5 g/dL L g/dL (3.5-5.2) Globulin 5.0 g/dL H g/dL (1.3-4.6) Procalcitonin Urine Color Urine Appearance Urine pH Ur Specific Gravit y Urine Protein Urine Glucose (UA) Urine Ketones Urine Blood Urine Nitrate Urine Bilirubin Urine Urobilinogen Ur Leukocyte Kallie ase 04/02/21 04/02/21 04/02/21 17:06 17:06 17:25 WBC RBC Hgb Hct MCV MCH MCHC RDW Plt Count MPV Neut % (Auto) Lymph % (Auto) Wright % (Auto) Eos % (Auto) Baso % (Auto) Neut # (Auto) Lymph # (Auto) Wright # (Auto) Eos # (Auto) Baso # (Auto) Nucleated RBC % (a uto) Nucleated RBCs # D-Dimer 1.36 ug/mIFEU H u g/mIFEU (0-0.59) Specimen Type Arterial Sample Site Radial, right ABG pH 7.41 (7.35-7.45) ABG pCO2 43.5 mmHg mmHg (35-45) ABG pO2 56.7 mmHg L mmHg (80.0-100.0) ABG HCO3 27.7 mmol/L H mmo l/L (22-26) ABG O2 Saturation 90.4 ABG Base Excess 2.7 mmol/L H mmol /L (-2.0-2.0) Christian Test Pos A-a O2 Gradient 78.3 mmHg H mmHg (5-10) Hematocrit 34.1 % L % (37-47) Hgb O2 Saturation 89.2 % L % (95-100) Carboxyhemoglobin 1.3 %THgb %THgb (0.4-20.1) Methemoglobin 0.0 % L % (0.4-1.5) Total Hemoglobin 11.1 g/dL L g/dL (12-16) Ionized Calcium 1.2 mmol/L mmol/L (1.1-1.4) O2 Delivery Device Nrb O2 Liters/Min 15.0 % % FiO2 100.0 % % Transportation Officer ID jmn Sodium 135.0 mmol/L mmol /L (131-143) Potassium 4.0 mmol/L mmol/L (3.5-5.0) Chloride Carbon Dioxide Anion Gap BUN Creatinine GFR Calculation Glucose 103.0 mg/dL mg/dL (70-115) Calculated Osmolal ity Lactic Acid Calcium Total Bilirubin AST ALT Alkaline Phosphata se Creatine Kinase Troponin T Baselin e Troponin T 120 Min [place] Troponin T C-Reactive Protein 171.1 mg/L H mg/L (0.0-4.9) NT-Pro-B Natriuret Pep Total Protein Albumin Globulin Procalcitonin 0.31 ng/mL ng/mL (0-0.5) Urine Color Urine Appearance Urine pH Ur Specific Gravit y Urine Protein Urine Glucose (UA) Urine Ketones Urine Blood Urine Nitrate Urine Bilirubin Urine Urobilinogen Ur Leukocyte Kallie ase 04/02/21 04/02/21 04/02/21 17:35 19:40 19:40 WBC RBC Hgb Hct MCV MCH MCHC RDW Plt Count MPV Neut % (Auto) Lymph % (Auto) Wright % (Auto) Eos % (Auto) Baso % (Auto) Neut # (Auto) Lymph # (Auto) Wright # (Auto) Eos # (Auto) Baso # (Auto) Nucleated RBC % (a uto) Nucleated RBCs # D-Dimer Specimen Type Sample Site ABG pH ABG pCO2 ABG pO2 ABG HCO3 ABG O2 Saturation ABG Base Excess Christian Test A-a O2 Gradient Hematocrit Hgb O2 Saturation Carboxyhemoglobin Methemoglobin Total Hemoglobin Ionized Calcium O2 Delivery Device O2 Liters/Min FiO2 Transportation Officer ID Sodium Potassium Chloride Carbon Dioxide Anion Gap BUN Creatinine GFR Calculation Glucose Calculated Osmolal ity Lactic Acid 1.3 mmol/L mmol/L (0.5-2.2) Calcium Total Bilirubin AST ALT Alkaline Phosphata se Creatine Kinase Troponin T Baselin e Troponin T 120 Min [place] 35.74 ng/L H ng/L (0-10) [place] Troponin T -0.26 ABS# L ABS# (0-10) C-Reactive Protein NT-Pro-B Natriuret Pep Total Protein Albumin Globulin Procalcitonin Urine Color Yellow (Yellow) Urine Appearance Clear (CLEAR) Urine pH 5 (5-7) Ur Specific Gravit y 1.025 (1.005-1.030) Urine Protein Neg (Negative) Urine Glucose (UA) Norm (Normal) Urine Ketones Negative (Negative) Urine Blood Neg (Negative) Urine Nitrate Negative (Negative) Urine Bilirubin Neg (Negative) Urine Urobilinogen Norm mg/dL mg/dL (Negative) Ur Leukocyte Kallie ase Negative (Negative) Discharge Plan Discharge Patient Disposition: Admitted As Inpatient Admit Provider: Kin Arizmendi Clinical Impression: Congestive heart failure Condition: Stable Coding Level of Care Code ED Leather Toggler for Chg Fwd Exam Comprehensive Documented by User: Mohsen Leos MD 04/02/21 18:52 HPI - SOB/Dyspnea General: Chief Complaint: Shortness of Breath/Dyspnea Stated Complaint: SOB/ DIFFICULTY BREATHING Time Seen by Provider: 04/02/21 17:19 [facility] PFS: Medical History (Updated 04/02/21 @ 18:46 by Kin Arizmendi MD) Acute kidney injury superimposed on CKD Alzheimer disease 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 Bradycardia CHF (congestive heart failure) CKD (chronic kidney disease) COPD (chronic obstructive pulmonary disease) COVID-19 COVID-19 DDD (degenerative disc disease) GERD (gastroesophageal reflux disease) History of skin cancer treated with excision Hypertension Hypothyroidism Light headed Nonischemic cardiomyopathy Orthostatic hypotension NEERAJ (obstructive sleep apnea) Osteoporosis Pneumonia due to 2019 novel coronavirus Tachycardia Tachycardia-bradycardia syndrome Surgical History H/O carpal tunnel repair H/O cataract extraction H/O: hysterectomy Family History Father CAD (coronary artery disease) Myocardial infarction Mother CAD (coronary artery disease) Myocardial infarction Sister CAD (coronary artery disease) Myocardial infarction Brother CAD (coronary artery disease) Myocardial infarction Daughter Cancer COLON Social History Alcohol intake: never Household members: family Marital status: / Course Vital Signs: Vital signs: Vital Signs Temperature 98.2 F 04/03/21 04:00 Pulse Rate 130 H 04/03/21 06:03 Respiratory Rate 24 H 04/03/21 06:03 Blood Pressure 105/68 04/03/21 06:03 Pulse Oximetry 90 04/03/21 04:00 MDM - SOB/Dyspnea MDM Narrative: Medical decision making narrative: Patient presents here with congestive heart failure with possible pneumonia as well. X-ray does show extensive edema with possible infiltrates but more likely congestive heart failure with her history and her BNP currently but she is on BiPAP and tolerating it well. Patients DO NOT INTUBATE. Patient started on IV antibiotics and spoke to hospitalist who will admit. Lab Data: Labs: Lab Results 04/02/21 04/02/21 04/02/21 17:06 17:06 17:06 WBC 17.8 10^3/uL H 10 ^3/uL (4.0-10.0) RBC 4.26 10^6/uL 10^6 /uL (4.1-5.3) Hgb 11.5 g/dL g/dL (11.5-15.3) Hct 37.8 % % (37.0-47.0) MCV 88.7 fl fl (81-99) MCH 27.0 pg L pg (28.0-34.0) MCHC 30.4 g/dL g/dL (30.0-36.0) RDW 15.9 % H % (12.1-15.1) Plt Count 240 10^3/cmm 10^3 /cmm (130-400) MPV 12.4 fL H fL (7.4-10.4) Neut % (Auto) 82.4 % % Lymph % (Auto) 6.5 % % Wright % (Auto) 9.3 % % Eos % (Auto) 0.6 % % Baso % (Auto) 0.4 % % Neut # (Auto) 14.66 10^3/uL H 1 0^3/uL (1.8-7.7) Lymph # (Auto) 1.2 10^3/uL 10^3/ uL (0.8-4.8) Wright # (Auto) 1.7 10^3/uL H 10^ 3/uL (0.2-0.9) Eos # (Auto) 0.1 10^3/uL 10^3/ uL (0.0-0.8) Baso # (Auto) 0.1 10^3/uL 10^3/ uL (0.0-0.1) Nucleated RBC % (a uto) 0 % % Nucleated RBCs # 0.0 /100WBC /100W BC D-Dimer Specimen Type Sample Site ABG pH ABG pCO2 ABG pO2 ABG HCO3 ABG O2 Saturation ABG Base Excess Christian Test A-a O2 Gradient Hematocrit Hgb O2 Saturation Carboxyhemoglobin Methemoglobin Total Hemoglobin Ionized Calcium O2 Delivery Device O2 Liters/Min FiO2 Transportation Officer ID Sodium 132 mmol/L L mmol /L (136-145) Potassium 4.0 mmol/L mmol/L (3.5-5.1) Chloride 95 mmol/L L mmol/ L (98-107) Carbon Dioxide 24 mmol/L mmol/L (22-29) Anion Gap 17.0 (5-19) BUN 12 mg/dL mg/dL (8-23) Creatinine 1.0 mg/dL H mg/dL (0.5-0.9) GFR Calculation Not Reportable Glucose 89 mg/dL mg/dL (65-115) Calculated Osmolal ity 273 mOsm/kg L mOs m/kg (285-295) Lactic Acid Calcium 8.6 mg/dL mg/dL (8.5-10.5) Total Bilirubin 0.2 mg/dL mg/dL (0.15-1.2) AST 13 U/L U/L (0-32) ALT 8 U/L U/L (0-33) Alkaline Phosphata se 95 IU/L IU/L (35-105) Creatine Kinase 32 U/L U/L (26-192) Troponin T Baselin e 36 ng/L H ng/L (0-10) Troponin T 120 Min [place] Troponin T C-Reactive Protein NT-Pro-B Natriuret Pep 70444 pg/mL H pg/ mL (0-450) Total Protein 7.5 g/dL g/dL (6.6-8.7) Albumin 2.5 g/dL L g/dL (3.5-5.2) Globulin 5.0 g/dL H g/dL (1.3-4.6) Procalcitonin Urine Color Urine Appearance Urine pH Ur Specific Gravit y Urine Protein Urine Glucose (UA) Urine Ketones Urine Blood Urine Nitrate Urine Bilirubin Urine Urobilinogen Ur Leukocyte Kallie ase 04/02/21 04/02/21 04/02/21 17:06 17:06 17:25 WBC RBC Hgb Hct MCV MCH MCHC RDW Plt Count MPV Neut % (Auto) Lymph % (Auto) Wright % (Auto) Eos % (Auto) Baso % (Auto) Neut # (Auto) Lymph # (Auto) Wright # (Auto) Eos # (Auto) Baso # (Auto) Nucleated RBC % (a uto) Nucleated RBCs # D-Dimer 1.36 ug/mIFEU H u g/mIFEU (0-0.59) Specimen Type Arterial Sample Site Radial, right ABG pH 7.41 (7.35-7.45) ABG pCO2 43.5 mmHg mmHg (35-45) ABG pO2 56.7 mmHg L mmHg (80.0-100.0) ABG HCO3 27.7 mmol/L H mmo l/L (22-26) ABG O2 Saturation 90.4 ABG Base Excess 2.7 mmol/L H mmol /L (-2.0-2.0) Christian Test Pos A-a O2 Gradient 78.3 mmHg H mmHg (5-10) Hematocrit 34.1 % L % (37-47) Hgb O2 Saturation 89.2 % L % (95-100) Carboxyhemoglobin 1.3 %THgb %THgb (0.4-20.1) Methemoglobin 0.0 % L % (0.4-1.5) Total Hemoglobin 11.1 g/dL L g/dL (12-16) Ionized Calcium 1.2 mmol/L mmol/L (1.1-1.4) O2 Delivery Device Nrb O2 Liters/Min 15.0 % % FiO2 100.0 % % Transportation Officer ID jmn Sodium 135.0 mmol/L mmol /L (131-143) Potassium 4.0 mmol/L mmol/L (3.5-5.0) Chloride Carbon Dioxide Anion Gap BUN Creatinine GFR Calculation Glucose 103.0 mg/dL mg/dL (70-115) Calculated Osmolal ity Lactic Acid Calcium Total Bilirubin AST ALT Alkaline Phosphata se Creatine Kinase Troponin T Baselin e Troponin T 120 Min [place] Troponin T C-Reactive Protein 171.1 mg/L H mg/L (0.0-4.9) NT-Pro-B Natriuret Pep Total Protein Albumin Globulin Procalcitonin 0.31 ng/mL ng/mL (0-0.5) Urine Color Urine Appearance Urine pH Ur Specific Gravit y Urine Protein Urine Glucose (UA) Urine Ketones Urine Blood Urine Nitrate Urine Bilirubin Urine Urobilinogen Ur Leukocyte Kallie ase 04/02/21 04/02/21 04/02/21 17:35 19:40 19:40 WBC RBC Hgb Hct MCV MCH MCHC RDW Plt Count MPV Neut % (Auto) Lymph % (Auto) Wright % (Auto) Eos % (Auto) Baso % (Auto) Neut # (Auto) Lymph # (Auto) Wright # (Auto) Eos # (Auto) Baso # (Auto) Nucleated RBC % (a uto) Nucleated RBCs # D-Dimer Specimen Type Sample Site ABG pH ABG pCO2 ABG pO2 ABG HCO3 ABG O2 Saturation ABG Base Excess Christian Test A-a O2 Gradient Hematocrit Hgb O2 Saturation Carboxyhemoglobin Methemoglobin Total Hemoglobin Ionized Calcium O2 Delivery Device O2 Liters/Min FiO2 Transportation Officer ID Sodium Potassium Chloride Carbon Dioxide Anion Gap BUN Creatinine GFR Calculation Glucose Calculated Osmolal ity Lactic Acid 1.3 mmol/L mmol/L (0.5-2.2) Calcium Total Bilirubin AST ALT Alkaline Phosphata se Creatine Kinase Troponin T Baselin e Troponin T 120 Min [place] 35.74 ng/L H ng/L (0-10) [place] Troponin T -0.26 ABS# L ABS# (0-10) C-Reactive Protein NT-Pro-B Natriuret Pep Total Protein Albumin Globulin Procalcitonin Urine Color Yellow (Yellow) Urine Appearance Clear (CLEAR) Urine pH 5 (5-7) Ur Specific Gravit y 1.025 (1.005-1.030) Urine Protein Neg (Negative) Urine Glucose (UA) Norm (Normal) Urine Ketones Negative (Negative) Urine Blood Neg (Negative) Urine Nitrate Negative (Negative) Urine Bilirubin Neg (Negative) Urine Urobilinogen Norm mg/dL mg/dL (Negative) Ur Leukocyte Kallie ase Negative (Negative) Discharge Plan Discharge Patient Disposition: Admitted As Inpatient Admit Provider: Kin Arizmendi Clinical Impression: Congestive heart failure Condition: Stable Coding Level of Care Code ED Leather Toggler for [place] Fwd Exam Comprehensive
[2021-04-02 17:33] LABS: Basophils # 0.1 10^3/uL (0.0-0.1); Basophils % 0.4 %; Eosinophils # 0.1 10^3/uL (0.0-0.8); Eosinophils % 0.6 %; Hematocrit 37.8 % (37.0-47.0); Hemoglobin 11.5 g/dL (11.5-15.3); Lymphocytes # 1.2 10^3/uL (0.8-4.8); Lymphocytes % 6.5 %; Mean Corpuscular HGB Conc 30.4 g/dL (30.0-36.0); Mean Corpuscular Volume 88.7 fl (81-99); Mean Platelet Volume 12.4 fL (7.4-10.4); Monocytes # 1.7 10^3/uL (0.2-0.9); Monocytes % 9.3 %; Neutrophils # 14.66 10^3/uL (1.8-7.7); Neutrophils % 82.4 %; Nucleated Red Blood Cells % 0 %; Platelet Count 240 10^3/cmm (130-400); Red Blood Count 4.26 10^6/uL (4.1-5.3); Red Cell Distribution Width 15.9 % (12.1-15.1); White Blood Count 17.8 10^3/uL (4.0-10.0)
[2021-04-02] MEDS: FUROsemide 10 mg/mL SDV 10mL 60 MG IVP (17:47)
[2021-04-02] MEDS: levofloxacin-dextrose 5 % 750 MG/150 ML PREMIX 100 MG IV (17:59)
[2021-04-02 18:03] LABS: Troponin(5th) Baseline 36 ng/L (0-10)
[2021-04-02 18:05] LABS: Alanine Aminotransferase 8 U/L (0-33); Albumin Level 2.5 g/dL (3.5-5.2); Alkaline Phosphatase 95 IU/L (35-105); Aspartate Amino Transferase 13 U/L (0-32); Blood Urea Nitrogen 12 mg/dL (8-23); Calcium 8.6 mg/dL (8.5-10.5); Carbon Dioxide 24 mmol/L (22-29); Chloride 95 mmol/L (98-107); Creatine Phosphokinase 32 U/L (26-192); Glucose 89 mg/dL (65-115); NT Pro B Type Natriuretic Pept 12030 pg/mL (0-450); Osmolality Calculated 273 mOsm/kg (285-295); Sodium 132 mmol/L (136-145); Total Bilirubin 0.2 mg/dL (0.15-1.2); Total Protein 7.5 g/dL (6.6-8.7)
[2021-04-02 18:07] LABS: Add Urine Microscopic? NO; Charge for UA Resulting for Rev
[2021-04-02 18:18] LABS: Bilirubin Urine Neg (Negative); Blood Urine Neg (Negative); Glucose Urine UA Norm (Normal); Ketones Urine Negative (Negative); Leukocyte Esterase Urine Negative (Negative); Nitrate Urine Negative (Negative); Protein Urine Neg (Negative); Specific Gravity, Urine 1.025 (1.005-1.030); Urine Appearance Clear (CLEAR); Urine Color Yellow (Yellow); Urobilinogen Urine Norm (Negative); pH Urine 5 (5-7)
--- NOTE | 2021-04-02 18:39 | CTR_ITS ---
PROCEDURE INFORMATION: Exam: CTA Chest With Contrast Exam date and time: 04/02/2021 6:39 PM Age: 80 years old Clinical indication: Shortness of breath TECHNIQUE: Imaging protocol: Computed tomographic angiography of the chest with contrast. 3D rendering (Not supervised by radiologist): MIP and/or 3D reconstructed images were created by the technologist. Radiation optimization: All CT scans at this facility use at least one of these dose optimization techniques: automated exposure control; mA and/or kV adjustment per patient size (includes targeted exams where dose is matched to clinical indication); or iterative reconstruction. Contrast material: VISI 320; Contrast volume: 80 ml; Contrast route: INTRAVENOUS (IV); COMPARISON: CT angio chest PE prot [id number] 03/13/2021 10:21 AM RADIATION DOSE METRICS: Total DLP (mGy-cm): 568.98 FINDINGS: Pulmonary arteries: Normal. No pulmonary emboli. Aorta: Unremarkable. No aortic aneurysm. No aortic dissection. Lungs: Diffuse patchy dense ground-glass opacities throughout both lungs. Patchy consolidations in the posterior lower lobes. Calcified granulomas in the right lung. Pleural spaces: Mild bilateral pleural effusions. Heart: Small pericardial effusion. Lymph nodes: Stable calcified mediastinal and right hilar lymph nodes. Liver: Calcified granulomas in the liver. Spleen: Calcified granulomas in the spleen. Bones/joints: Mild thoracic curvature and degenerative changes. No acute fracture. Soft tissues: Unremarkable. CT/CT angio chest PE protcl [id number] IMPRESSION: 1. No evidence for pulmonary embolus. 2. Severe diffuse pulmonary opacities could represent pulmonary edema, pneumonia, or ARDS. 3. Medium-sized pleural effusions. Radiation Dose CTDIVOL = (mGy): DLP = 568.98 (mGy-cm)
--- NOTE | 2021-04-02 18:40 | P.HP_ITS ---
Providers/Chief Complaint Primary Care Provider: Alba Dueñas MD Chief Complaint: SOB/ DIFFICULTY BREATHING History of Present Illness Danyelle Hanna is a 80 year old female with a past medical history of dementia, recent history of COVID-19 infection on 2 L, COPD, history of tachybradycardia syndrome, history of nonischemic cardiomyopathy, heart failure with preserved ejection fraction, NEERAJ not adherent with CPAP, who presents to [facility] with her daughter due to complaints of cough, shortness of breath and weakness. Patient was recently discharged from [facility] for tachybradycardia syndrome, COVID-19 infection, dehydration, orthostatic hypotension. Since she got home she according to daughter she was doing well, she was ambulating, she was breathing better, on 2 to 3 L, they attended a over the weekend, for the last 2 days she started to develop increased shortness of breath, increased fatigue, increased tiredness, and having a nonproductive cough. This morning when she was checking her oxygen saturations, they kept dropping into the low 80s, with her worsening shortness of breath and fatigue she brought her to [facility] for evaluation. Currently patient is on BiPAP, she is alert to person, not to place, not to time but she does follow commands, she is on 100% FiO2, saturating high 90s, normotensive, tachypneic, no evidence of respiratory distress. Chest x-ray shows worsening pneumonia, with leukocytosis. No documented fevers at home or here. I advised daughter that she likely has healthcare associated pneumonia, and some degree of nonischemic cardiomyopathy diastolic heart failure exacerbation. We can do medical management, she is DNR/DNI. Daughter wants us to do medical management, however if she starts to have any evidence of suffering or respiratory compromise respiratory distress to avoid aggressive interventions, and make her comfortable as possible. Given her severe dementia, I will allow her daughter to be at bedside. Review of Systems Const: Denies: fever(s) Card: Reports: chest pain Resp: Reports: dyspnea GI: Denies: abdominal pain : Denies: flank pain Skin/Breast: Denies: rash Medications/Allergies Home Medications Medication Instructions Recorded Confirmed Last Taken Type ondansetron HCl [Zofran] 4 mg PO Q6H PRN #14 tab 08/08/19 03/31/21 Unknown Rx levothyroxine 50 mcg tablet 50 mcg PO DAILY 11/14/19 03/31/21 03/06/21 History omeprazole 20 mg tablet,delayed 20 mg PO BID 11/14/19 03/31/21 03/06/21 History release aspirin 325 mg tablet 325 mg PO DAILY tab 05/26/20 03/31/21 03/05/21 History nitroglycerin 0.4 mg sublingual 0.4 mg SUBLINGUAL Q5M PRN #25 tab 11/26/20 03/31/21 Unknown Rx tablet acetaminophen 1,000 mg PO PRN 12/08/20 03/31/21 Unknown History theophylline 400 mg PO DAILY 12/08/20 03/31/21 03/05/21 History ipratropium-albuterol 3 ml INHALATION Q6H PRN #90 ml 12/09/20 03/31/21 03/06/21 Rx Glucosamine Chondroitin 1 cap PO DAILY 02/22/21 03/31/21 02/22/21 History potassium chloride 10 meq PO DAILY PRN #30 cap 02/24/21 03/31/21 02/22/21 Rx carvedilol 3.125 mg PO BID #0 tab 03/13/21 03/31/21 Unknown Rx furosemide [Lasix] 20 mg PO DAILY #30 tab 03/13/21 03/31/21 Unknown Rx midodrine 10 mg PO TID #90 tab 03/13/21 03/31/21 Unknown Rx donepezil 10 mg tablet See Rx Instructions .ROUTE 03/31/21 03/31/21 Unknown Rx .COMPLEX #90 tablet memantine 10 mg tablet See Rx Instructions .ROUTE 03/31/21 03/31/21 Unknown Rx .COMPLEX #180 tab venlafaxine 150 mg 150 mg PO DAILY #90 cap 03/31/21 03/31/21 Unknown Rx capsule,extended release 24 hr budesonide 0.25 mg/2 mL suspension 0.25 mg INHALATION BID 30 Days 04/01/21 Unknown Rx for nebulization #120 ml Allergies Allergy/AdvReac Type Severity Reaction Status Date / Time azithromycin Allergy Unknown Verified 04/02/21 17:05 cephalexin [From Keflex] Allergy Unknown Verified 04/02/21 17:05 Penicillins Allergy Unknown Verified 04/02/21 17:05 PFSH Acute PFSH: Medical History (Updated 04/02/21 @ 18:46 by Kin Arizmendi MD) Acute kidney injury superimposed on CKD Alzheimer disease 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 Bradycardia CHF (congestive heart failure) CKD (chronic kidney disease) COPD (chronic obstructive pulmonary disease) COVID-19 COVID-19 DDD (degenerative disc disease) GERD (gastroesophageal reflux disease) History of skin cancer treated with excision Hypertension Hypothyroidism Light headed Nonischemic cardiomyopathy Orthostatic hypotension NEERAJ (obstructive sleep apnea) Osteoporosis Pneumonia due to 2019 novel coronavirus Tachycardia Tachycardia-bradycardia syndrome Surgical History H/O carpal tunnel repair H/O cataract extraction H/O: hysterectomy Family History Father CAD (coronary artery disease) Myocardial infarction Mother CAD (coronary artery disease) Myocardial infarction Sister CAD (coronary artery disease) Myocardial infarction Brother CAD (coronary artery disease) Myocardial infarction Daughter Cancer COLON Social History Alcohol intake: never Household members: family Marital status: / Female Reproductive History: Date of last menstrual period: 09/18/20 Vitals/I&O/Wt Last Vital Signs Temp 97.8 F 04/02/21 17:06 Pulse 94 04/02/21 17:28 Resp 32 H 04/02/21 17:23 BP 128/88 04/02/21 17:23 Pulse Ox 95 04/02/21 17:28 Weight last 48 hrs Weight 79.379 kg Physical Exam Const: GENERAL APPEARANCE: cooperative and frail appearing ORIENTATION/CONSCIOUSNESS: Yes awake and Yes oriented to person; not oriented to place and not oriented to time Chest: COMMONS NORMALS: normal inspection of the chest Resp: COMMON NORMALS: normal respiratory effort, No retractions and No use of accessory muscles AUSCULTATION: rales and wheezes Cardio: COMMON NORMALS: regular rhythm, S1 normal heart sound present and S2 normal heart sound present RATE: bradycardic GI: COMMON NORMALS: Normal to inspection, nondistended, normoactive bowel sounds present, Soft to palpation, non-tender and No hepatosplenomegaly present : COMMON NORMALS: Yes no CVA tenderness Extremity: COMMON NORMALS: no pedal edema Neuro: SENSORIUM/ORIENTATION: Yes alert, Yes oriented to person, No oriented to place and No oriented to time OTHER: Does follow commands such as squeezing my fingers, wiggling her toes, Urinary Catheter Management^: Aceves: Cath Placed During This Visit: yes Reason for Continuing Indwelling Catheter: Accurate Measurement of Urinary Output in Critically Ill Patients Urinary Catheter Date of Insertion: 04/02/21 Urinary Catheter Time of Insertion: 18:00 Data : 04/02/21 17:06 04/02/21 17:06 A&P Assessment and plan (1) Acute respiratory failure with hypoxia: Acute hypoxic respiratory failure -Secondary to healthcare associated pneumonia -Some component related to exacerbation of nonischemic cardiomyopathy, heart failure with preserved ejection fraction -Currently recovering from COVID-19 infection -In the setting of COPD, asthma Plan: -Admit to CSU -Continue BiPAP, wean oxygen as tolerated -Monitor mentation closely, as she has a high risk of agitation during the night -Her Xarelto was stopped on last admission as it was no evidence of DVTs or PEs, will do CT angiogram to evaluate for possible pulmonary embolism -Follow blood cultures, sputum cultures, pro-Marty, CRP -Has complaints of chest pain, serial troponins, serial EKGs -Broad-spectrum antibiotic therapy, vancomycin, Primaxin, Levaquin -Lasix 40 mg IV every 12 hours -Monitor urine output, monitor potassium, monitor magnesium, monitor creatinine -Monitor respiratory status closely, monitor mentation -She does have severe Alzheimer's dementia, would avoid any sedating medications given that she is on 100% BiPAP, high risk of respiratory depression, will allow daughter at bedside, daughter is really good at redirecting patient and keeping her calm -For now daughter wants to continue medical intervention, however if patient goes into respiratory distress stress, or starts to clinically deteriorate, she is okay with proceeding with comfort care, and avoiding aggressive interventions -DNR/DNI -Lovenox for DVT prophylaxis Alzheimer's dementia Tachybradycardia syndrome, telemetry monitoring Hypothyroidism, continue levothyroxine Status: Acute (2) Healthcare-associated pneumonia: Status: Acute (3) Asthma: Status: Acute (4) COPD (chronic obstructive pulmonary disease): Status: Acute Qualifiers: COPD type: unspecified COPD Qualified Code(s): J44.9 - Chronic obstructive pulmonary disease, unspecified (5) CKD (chronic kidney disease): Status: Chronic Qualifiers: Chronic kidney disease stage: stage 3 (moderate) Chronic kidney disease stage 3 subtype: unspecified whether 3a or 3b Qualified Code(s): N18.30 - Chr onic kidney disease, stage 3 unspecified (6) Hypothyroidism: Status: Acute (7) Tachycardia-bradycardia syndrome: Status: Acute Attestations Medical Necessity Statement*: Patient requires hospitalization for acute respiratory failure with hypoxia secondary to healthcare associate pneumonia, inpatient, greater than 2 midnights Coding Level of Care Code Acute Fairing Worker for [facility] Diagnoses Acute respiratory failure with hypoxia J96.01 Healthcare-associated pneumonia J18.9 Asthma J45.909 COPD (chronic obstructive pulmonary disease) J44.9 COPD type: unspecified COPD CKD (chronic kidney disease) N18.30 Chronic kidney disease stage: stage 3 (moderate) Chronic kidney disease stage 3 subtype: unspecified whether 3a or 3b Hypothyroidism E03.9 Tachycardia-bradycardia syndrome I49.5
[2021-04-02] MEDS: iodixanol 320 mg/mL 100mL Btl IV (18:58)
--- NOTE | 2021-04-02 19:20 | ECG_ITS ---
[facility] Test Date: 2021-04-02 Pat Name: Danyelle Hanna Department: Room: 278 Gender: Female Business Practices Officer: : 1940 Requested By: Gino Gentile Order Number: [id number] Ami MD: Tatianna Dangelo M.D. Measurements Intervals [place] Rate: 126 P: 32 [place]: 124 QRS: -31 QRSD: 141 T: 69 QT: 337 QTc: 490 Interpretive Statements SINUS TACHYCARDIA WITH OCCASIONAL SUPRAVENTRICULAR PREMATURE COMPLEXES LEFT AXIS DEVIATION [QRS AXIS < -30] POSSIBLE RIGHT VENTRICULAR CONDUCTION DELAY [RSR (QR) IN V1/V2] LEFT BUNDLE BRANCH BLOCK Compared to ECG 04/02/2021 17:13:46 Left-axis deviation now present Left bundle-branch block now present Atrial flutter no longer present Intraventricular conduction delay no longer present Atrial abnormality no longer present Myocardial infarct finding no longer present Electronically Signed On 04-03-2021 19:39:00 CDT by Tatianna Dangelo M.D. [id number] f
--- NOTE | 2021-04-02 19:27 | PC.NURSE ---
pt back from CT and on NRB at 15 lpm. advised cardiac care unit nurse to contact respiratory to place pt back on bipap device
[2021-04-02 19:39] LABS: C Reactive Protein 171.1 mg/L (0.0-4.9)
[2021-04-02 19:42] LABS: D Dimer 1.36 ug/mIFEU (0-0.59)
--- NOTE | 2021-04-02 19:45 | PC.NURSE ---
pt back on bipap. tolerating well. spo2 improved to 93%
[2021-04-02 19:46] LABS: Procalcitonin 0.31 ng/mL (0-0.5)
[2021-04-02 20:12] LABS: Lactic Sepsis W/Reflex 1.3 mmol/L (0.5-2.2)
--- NOTE | 2021-04-02 20:16 | PC.NURSE ---
report called to Mindi BABIN
[2021-04-02 20:30] LABS: Troponin 5 2HR 35.74 ng/L (0-10)
[2021-04-02 20:31] LABS: Troponin 5 2HR Delta -0.26 ABS# (0-10)
--- NOTE | 2021-04-02 22:33 | PC.PHAR ---
Pharmacokinetic dosing service Date: 04/02/21 Time: 2229 Objective: Patient: Danyelle Hanna Floor: 278-2 Age: 80 yo Serum creatinine: 1.0 mg/dL Height: 62.0 Inches Weight (kg): 79.379 Diagnosis: Relevant medical/social history: Cultures and sensitivities: Other labs: Assessment: IBW (kg): 50.10 Dosing wt(kg): 79.379 Estimated Creatinine clearance (ml/min): 34.3 CRCL method: Cockcroft and Gault using ibw(default). Drug selected: Vancomycin Loading dose (mg): 0 Vd (liters): 71.4 (factor used: 0.9 L/kg) Marcus (hr-1): 0.033 Half life (hrs): 21.00 Recommended dose: 1250 mg Interval: 24 hrs Infusion time (hrs): 1.5 Predicted peak (mcg/mL): 31.2 Predicted trough (mcg/mL): 14.85 Total body weight is being used for vancomycin dosing. Renal function is stable [ ] /unstable [ ] Recommendations: Give Vancomycin 1250 mg q 24 hrs with an expected Cpeak of 31.2 mcg/ml and an expected Ctrough of 14.85 mcg/ml Renal dosing of other antibiotics (review renal dosing of other medications and list guidelines here): Thank you for the consult, will continue to follow. Signature: Raquel Fritz [facility]
[2021-04-02] MEDS: FUROsemide 10 mg/mL SDV 4mL 40 MG IVP (23:10)
[2021-04-02] MEDS: enoxaparin 40 mg/0.4 mL Syringe SUBCUT (23:11)
[2021-04-02] MEDS: pantoprazole 40 mg SDV IVP (23:11)
--- NOTE | 2021-04-02 23:20 | ECG_ITS ---
[facility] Test Date: 2021-04-02 Pat Name: Danyelle Hanna Department: Room: 278 Gender: Female Capsule Filling Machine Operator: : 1940 Requested By: Gino Gentile Order Number: [id number] Ami MD: Tatianna Dangelo M.D. Measurements Intervals [place] Rate: 120 P: 46 DC: 132 QRS: -31 QRSD: 137 T: 46 QT: 325 QTc: 461 Interpretive Statements SINUS TACHYCARDIA WITH OCCASIONAL SUPRAVENTRICULAR PREMATURE COMPLEXES LEFT AXIS DEVIATION [QRS AXIS < -30] INTRAVENTRICULAR CONDUCTION DELAY [130+ ms QRS DURATION] ANTEROSEPTAL MYOCARDIAL INFARCTION , OF INDETERMINATE AGE [40+ ms Q WAVE IN V1-V4] Compared to ECG 04/02/2021 21:26:08 Intraventricular conduction delay now present Myocardial infarct finding now present Left bundle-branch block no longer present Electronically Signed On 04-03-2021 19:38:33 CDT by Tatianna Dangelo M.D. [id number]
[2021-04-02 23:25] LABS: Troponin 5 6HR 34.81 ng/L (0-10)
[2021-04-02 23:27] LABS: Troponin 5 6HR Delta -1.19 ng/L (0-12)
[2021-04-02] MEDS: sodium chloride 0.9% (100 ml) 100 ML 10 ML (23:38)
[2021-04-02] MEDS: venlafaxine ER (24HR) 150 mg Capsule PO (23:55)
[2021-04-03] VITALS (22 sets, daily range): BP systolic 44–128; BP diastolic 24–98; PULSE 72–144; RESP 16–48; TEMP 36.3–37.3; O2SAT 73–94
[2021-04-03] MEDS: vancomycin 1,250 MG/250 ML PIGGYBACK 250 MG IV
[2021-04-03 05:05] LABS: ABG PCO2 45.4 mmHg (35-45); ABG PH Result 7.44 (7.35-7.45); Arterial Blood Gas Hematocrit 35.6 % (37-47); Blood Gas Allen Test Pos; Blood Gas Sample Type Arterial; HCO3 ABG 30.9 mmol/L (22-26); PO2 ABG 64.3 mmHg (80.0-100.0)
[2021-04-03 05:07] LABS: Blood Gas Sample Site Radial, right; Oxygen Device BIPAP
[2021-04-03 05:59] LABS: Basophils # 0.1 10^3/uL (0.0-0.1); Basophils % 0.3 %; Hemoglobin 10.3 g/dL (11.5-15.3); Lymphocytes # 1.2 10^3/uL (0.8-4.8); Lymphocytes % 6.2 %; Mean Corpuscular HGB Conc 30.3 g/dL (30.0-36.0); Mean Corpuscular Hemoglobin 26.7 pg (28.0-34.0); Mean Corpuscular Volume 88.1 fl (81-99); Mean Platelet Volume 11.8 fL (7.4-10.4); Monocytes # 1.7 10^3/uL (0.2-0.9); Monocytes % 8.7 %; Neutrophils # 16.69 10^3/uL (1.8-7.7); Neutrophils % 84.1 %; Nucleated Red Blood Cells % 0 %; Platelet Count 200 10^3/cmm (130-400); Red Blood Count 3.86 10^6/uL (4.1-5.3); Red Cell Distribution Width 15.7 % (12.1-15.1); White Blood Count 19.8 10^3/uL (4.0-10.0)
[2021-04-03] MEDS: midodrine 5 mg TABLET 10 MG PO (06:08)
[2021-04-03 06:33] LABS: Alanine Aminotransferase 7 U/L (0-33); Albumin Level 2.4 g/dL (3.5-5.2); Alkaline Phosphatase 91 IU/L (35-105); Anion Gap 17.9 (5-19); Aspartate Amino Transferase 11 U/L (0-32); Blood Urea Nitrogen 15 mg/dL (8-23); Calcium 8.7 mg/dL (8.5-10.5); Carbon Dioxide 27 mmol/L (22-29); Chloride 96 mmol/L (98-107); Glucose 93 mg/dL (65-115); Magnesium 1.8 mg/dL (1.7-2.3); Osmolality Calculated 285 mOsm/kg (285-295); Phosphorus 3.5 mg/dL (2.5-4.5); Potassium 3.9 mmol/L (3.5-5.1); Sodium 137 mmol/L (136-145); Total Bilirubin 0.3 mg/dL (0.15-1.2); Total Protein 6.4 g/dL (6.6-8.7)
[2021-04-03] MEDS: ALPRAZolam 0.5 mg Tablet 0.25 MG PO (06:34)
[2021-04-03 06:37] LABS: NT Pro B Type Natriuretic Pept 12906 pg/mL (0-450); Procalcitonin 0.83 ng/mL (0-0.5)
[2021-04-03 06:48] LABS: Creatine Phosphokinase 27 U/L (26-192)
[2021-04-03] MEDS: budesonide 0.5 mg/2 mL Neb INHALATION (07:42)
[2021-04-03] MEDS: ipratropium-albuterol 3 mL Neb INHALATION (07:42)
[2021-04-03] MEDS: memantine 5 mg tablet 10 MG PO (08:50)
[2021-04-03] MEDS: metoprolol tartrate 25 mg Tablet 6.25 MG PO (08:50)
[2021-04-03] MEDS: aspirin 325 mg Tablet PO (08:51)
[2021-04-03] MEDS: levothyroxine 50 mcg Tablet PO (08:51)
--- NOTE | 2021-04-03 09:26 | PC.PHAR ---
pts daughter verified pts medications-pts daughter states the pts kaye rodriguez was dced-notes are made in the pharmacy comments
[2021-04-03] MEDS: FUROsemide 10 mg/mL SDV 4mL 40 MG IVP (10:07)
--- NOTE | 2021-04-03 11:26 | PC.CHAP ---
Pastoral Care Encounter/Spiritual Assessment Type of Contact [] Declined powerhouse attendant visit [] Patient/Family/Request visit [] Outpatient visit [] Follow-up visit [] Physician referral [] Code/Alert [x] Routine visit [] Staff referral [] Actively dying [] Patient sleeping [] Family support [] [] Out of room [] Palliative care [] [] Receiving care in room [] Pre-surgical visit [] Trauma [] Long length of stay [] ICU visit [x] Other: sob... shortness of breath Relational/Emotional Strength [] Patient feels connected with others/family/visitors/staff [] Distress [] Loneliness/isolation [] Abandonment Spirituality of Patient [] Person of Bernice [] Attends Scientologist of their Bernice [] Believes in Prayer [] Reads Bible or Amish materials [] There are Spiritual issues to be addressed Local Company Truck Driver Interventions [x] Prayer [] Active listening [] Non-anxious presence [] Spiritual/emotional support [] Crisis/trauma care [] Spiritual counseling [] Bereavement support [] Provided bereavement packet [] Provided Bible/devotional materials [] Provided toy/stuffed animal, coloring book to patient or family member [] Provided Communion [] Anointing/[place] [] Salvation [x] Completed spiritual assessment [] Other: Impact on Illness or Injury [] Angry [] Fearful [] Anxious [] Often cries [] Exhaustion [] Unable to work [] Unable to attend buddhist [] Unable to walk/stand [] Unable to read [] Unable to drive [] Unable to eat/drink [] Unable to sleep [] Unable to be with family [] Patient intubated [] Other: Summary Time spent with patient
[2021-04-03] MEDS: LORazepam 0.5 mg Tablet PO (12:45)
--- NOTE | 2021-04-03 14:14 | PM.PN ---
Subjective Subjective: Interval history: Patient was seen this morning, she is alert to person, not to place, not to time, she does follow commands, currently on nonrebreather, oxygen saturations are greater than 85%, when asked her how she is doing she tells me you are the doctor you should know, she jokes with me, her daughter is at bedside, she tells me that she did have episodes of confusion overnight, but could not tolerate the BiPAP I advised daughter for my concern for healthcare associated pneumonia and/or underlying acute respiratory distress syndrome, will continue to monitor respiratory status closely, we might need to try BiPAP, she also has sinus tachycardia likely secondary to her respiratory status, will continue to monitor, daughter does not want us to do aggressive interventions, is okay with her medical interventions for now Vitals/I&O/Wt Last Vital Signs Temp 97.4 F L 04/03/21 11:53 Pulse 127 H 04/03/21 13:54 Resp 20 H 04/03/21 11:53 BP 103/69 04/03/21 11:53 Pulse Ox 90 04/03/21 13:54 04/02/21 04/03/21 04/03/21 22:59 06:59 14:59 Intake Total 150 / 150 650 / 800 200 / 200 Output Total 1300 / 1300 Balance -1150 / -1150 650 / -500 200 / 200 Weight last 48 hrs Weight 79.379 kg Weight 79.379 kg Physical Exam Const: COMMON NORMALS: no acute distress GENERAL APPEARANCE: cooperative ORIENTATION/CONSCIOUSNESS: Yes awake and Yes oriented to person; not oriented to place and not oriented to time HENMT: COMMON NORMALS: normocephalic HEAD & SCALP: normocephalic Resp: COMMON NORMALS: normal respiratory effort, No retractions and No use of accessory muscles AUSCULTATION: wheezes Cardio: COMMON NORMALS: regular rhythm, S1 normal heart sound present and S2 normal heart sound present RATE: tachycardic RHYTHM: regular rhythm HEART SOUNDS: S1 normal heart sound present and S2 normal heart sound present GI: COMMON NORMALS: Normal to inspection, nondistended, normoactive bowel sounds present, Soft to palpation and non-tender PALPATION: Yes Soft to palpation Extremity: COMMON NORMALS: no pedal edema Neuro: SENSORIUM/ORIENTATION: Yes oriented to person, No oriented to place and No oriented to time Urinary Catheter Management^: Aceves: Cath Placed During This Visit: yes Reason for Continuing Indwelling Catheter: Acute Urinary Retention or Obstruction Urinary Catheter Date of Insertion: 04/02/21 Urinary Catheter Time of Insertion: 18:00 Data : 04/03/21 05:30 04/03/21 05:30 Micro: Microbiology 04/02/21 22:15 MRSA Culture - Final Nose 04/02/21 17:35 Bacterial Antigens - Final Urine,Clean Catch 04/02/21 19:45 Blood Culture - Preliminary Blood SPECIMEN COLLECTED 04/02/21 19:40 Blood Culture - Preliminary Blood SPECIMEN COLLECTED A&P Assessment and plan (1) Acute respiratory failure with hypoxia: Acute hypoxic respiratory failure -Secondary to healthcare associated pneumonia -Has evidence of acute respiratory distress syndrome -Some component related to exacerbation of nonischemic cardiomyopathy, heart failure with preserved ejection fraction -Currently recovering from COVID-19 infection -In the setting of COPD, asthma -CT angiogram of the chest shows severe diffuse pulmonary opacities which could represent pulmonary edema, pneumonia, acute respiratory distress, moderate sized pleural effusions Plan: -Continue nonrebreather -Would encourage BiPAP -Monitor mentation closely, as she has a high risk of agitation during the night -Follow blood cultures, sputum cultures, -Has complaints of chest pain, serial troponins, serial EKGs -Broad-spectrum antibiotic therapy, vancomycin, Primaxin, Levaquin -Lasix 40 mg IV every 12 hours -Monitor urine output, monitor potassium, monitor magnesium, monitor creatinine -Monitor respiratory status closely, monitor mentation -She does have severe Alzheimer's dementia, would try to avoid sedating medications -Ativan 0.5 mg every 4 as needed for anxiety, morphine 1 mg every 4 hours for anxiety and air hunger -For now daughter wants to continue medical intervention, however if patient goes into respiratory distress stress, or starts to clinically deteriorate, she is okay with proceeding with comfort care, and avoiding aggressive interventions -DNR/DNI -Lovenox for DVT prophylaxis Tachybradycardia syndrome, currently having sinus tachycardia, continue home metoprolol, continue to monitor, likely related to respiratory failure as above, monitor for A. fib events NSTEMI, type II, supply to ischemia from respiratory failure, continue to monitor Alzheimer's dementia Tachybradycardia syndrome, telemetry monitoring Hypothyroidism, continue levothyroxine Status: Acute (2) Healthcare-associated pneumonia: Status: Acute (3) Asthma: Status: Acute (4) COPD (chronic obstructive pulmonary disease): Status: Acute Qualifiers: COPD type: unspecified COPD Qualified Code(s): J44.9 - Chronic obstructive pulmonary disease, unspecified (5) CKD (chronic kidney disease): Status: Chronic Qualifiers: Chronic kidney disease stage: stage 3 (moderate) Chronic kidney disease stage 3 subtype: unspecified whether 3a or 3b Qualified Code(s): N18.30 - Chronic kidney disease, stage 3 unspecified (6) Hypothyroidism: Status: Acute (7) Tachycardia-bradycardia syndrome: Status: Acute Attestations Medical Necessity Statement*: Patient requires hospitalization for acute respiratory failure secondary to pneumonia, acute respiratory distress, pulmonary edema, Coding Level of Care Code Acute Account Executive for [facility] Diagnoses Acute respiratory failure with hypoxia J96.01 Healthcare-associated pneumonia J18.9 Asthma J45.909 COPD (chronic obstructive pulmonary disease) J44.9 COPD type: unspecified COPD CKD (chronic kidney disease) N18.30 Chronic kidney disease stage: stage 3 (moderate) Chronic kidney disease stage 3 subtype: unspecified whether 3a or 3b Hypothyroidism E03.9 Tachycardia-bradycardia syndrome I49.5
--- NOTE | 2021-04-03 14:15 | PC.RESP ---
PULMONARY REHAB INFORMATION SENT TO PATIENT.
[2021-04-03] MEDS: morphine 4 mg/mL SDV 1 mL 1 MG IVP (15:25)
--- NOTE | 2021-04-03 15:32 | PC.NURSE ---
Pt's vital signs 133 HR, 40 RR, 101/66 BP, 77% on 15 L non-rebreather. This nurse called Dr. Arizmendi to see if morphine could be given for air hunger. Orders given to use current order of 1 mg morphine for air hunger. Dr. Arizmendi stated pt and family do not want aggressive intervention if patient declines.
[2021-04-03] MEDS: morphine 4 mg/mL SDV 1 mL 2 MG IVP ×3 (18:28→22:58)
[2021-04-03] MEDS: pantoprazole 40 mg SDV IVP (20:54)
[2021-04-03] MEDS: LORazepam 2 mg/mL INJ 1 mL 0.5 MG IVP (21:39)
--- NOTE | 2021-04-03 23:05 | PM.EVENT ---
Event Note Event Note: Blood pressure down to systolic 40s, HR 144, 02 sat 75% with RR 40, patient exhibiting signs of respiratory distress. Family incl daughter and son at bedside. Wish to transition to comofrt care at this point. Comfort care orders placed. Morphine and ativan to be used titrated for comfort.
[2021-04-04 00:49] VITALS: RESP 44
[2021-04-04] MEDS: morphine 4 mg/mL SDV 1 mL IVP ×2 (00:49→01:27)
[2021-04-04] MEDS: LORazepam 2 mg/mL INJ 1 mL IVP (01:09)
[2021-04-04 01:27] VITALS: RESP 44
--- NOTE | 2021-04-20 18:09 | P.DES_ITS ---
Discharge Providers DDS Date of Admission: 04/02/21 20:17 Date Summary Completed: 04/20/21 Attending Provider at Admission: Kin Arizmendi MD Time of : 02:10 Attending Provider at Discharge: Kin Arizmendi MD Primary Care Provider: Alba Dueñas MD DS Diagnoses Hospital Diagnoses (1) Acute respiratory failure with hypoxia: (2) Healthcare-associated pneumonia: (3) Asthma: (4) COPD (chronic obstructive pulmonary disease): Qualifiers: COPD type: unspecified COPD Qualified Code(s): J44.9 - Chronic obstructive pulmonary disease, unspecified (5) CKD (chronic kidney disease): Qualifiers: Chronic kidney disease stage: stage 3 (moderate) Chronic kidney disease stage 3 subtype: unspecified whether 3a or 3b Qualified Code(s): N18.30 - Chronic kidney disease, stage 3 unspecified (6) Hypothyroidism: (7) Tachycardia-bradycardia syndrome: Reason for Visit Reason for Visit: SOB/ DIFFICULTY BREATHING Summary Date and Time of Date of : 04/04/21 Time of : 02:10 Summary Summary: Danyelle Hanna is a 80 year old female with a past medical history of dementia, recent history of COVID-19 infection on 2 L, COPD, history of tachybr adycardia syndrome, history of nonischemic cardiomyopathy, heart failure with preserved ejection fraction, NEERAJ not adherent with CPAP, who presents to [facility] with her daughter due to complaints of cough, shortness of breath and weakness. Patient was recently discharged from [facility] for tachybradycardia syndrome, COVID-19 infection, dehydration, orthostatic hypotension. Since she got home she according to daughter she was doing well, she was ambulating, she was breathing better, on 2 to 3 L, they attended a over the weekend, for the last 2 days she started to develop increased shortness of breath, increased fatigue, increased tiredness, and having a nonproductive cough. Patient was admitted to [facility] for acute respiratory failure with hypoxia, acute encephalopathy, secondary to healthcare associate pneumonia with evidence of acute respiratory distress syndrome, with secondary exacerbation of nonischemic cardiomyopathy, heart failure with preserved ejection, recovering from COVID-19 related pneumonia and respiratory failure. Patient was DNR/DNI, had underlying dementia, family did not want aggressive interventions, were okay with medical management, but elected for comfort care if her clinical condition deteriorated or if she were to suffer. Patient was managed on the general medical floors with broad-spectrum antibiotic therapy, alternating BiPAP with high flow nasal cannula, diuretic therapy, and clinically monitored. Patient's clinical condition gradually worsened, displayed increased oxygen requirements, tachypnea, evidence of respiratory distress, with hypotension. Patient's family proceeded with comfort care, patient 04/04/2021 at 2:10 AM Additional Data Confirmation of as documented by pronouncing clinician: no pulse Family: at bedside Additional persons at bedside: nursing staff Attending/PCP notified?: I am attending Was code activated?: No Autopsy requested?: No Advance directives?: Yes Discharge Plan Discharge Patient Disposition: Condition: Stable Probable Cause of Probable cause of : Cardiac arrest DS Attestations Time Spent in /Discharge Care*: less than 30 min Quality - AMI: AMI present?: No Quality - Stroke: CVA present?: No Quality - VTE: VTE present?: No Deep Vein Thrombosis/Pulmonary Embolism Present on Admission: No Coding Level of Care Code Acute Freight Representative for [facility] Fwd Diagnoses Acute respiratory failure with hypoxia J96.01 Healthcare-associated pneumonia J18.9 Asthma J45.909 COPD (chronic obstructive pulmonary disease) J44.9 COPD type: unspecified COPD CKD (chronic kidney disease) N18.30 Chronic kidney disease stage: stage 3 (moderate) Chronic kidney disease stage 3 subtype: unspecified whether 3a or 3b Hypothyroidism E03.9 Tachycardia-bradycardia syndrome I49.5
== END 2021-04-04 02:10 | disposition expired | DRG 193 ==
LOC: ER 19:58 → MEDSURG 20:17
PROVIDERS: Family Medicine; Admitting Provider Family Medicine; Emergency Provider Emergency Medicine; PCP Family Medicine; Visit Provider Family Medicine
DX: J18.9 Pneumonia, unspecified organism (principal); I50.33 Acute on chronic diastolic (congestive) heart failure; I21.A1 Myocardial infarction type 2; J80 Acute respiratory distress syndrome; J44.0 Chronic obstructive pulmonary disease with (acute) lower respiratory infection; I13.0 Hypertensive heart and chronic kidney disease with heart failure and stage 1 through stage 4 chronic kidney disease, or unspecified chronic kidney disease; I42.8 Other cardiomyopathies; G93.40 Encephalopathy, unspecified; G30.9 Alzheimer's disease, unspecified; F02.80 Dementia in other diseases classified elsewhere, unspecified severity, without behavioral disturbance, psychotic disturbance, mood disturbance, and anxiety; Z87.01 Personal history of pneumonia (recurrent); N18.30 Chronic kidney disease, stage 3 unspecified; Z86.16 Personal history of COVID-19; K21.9 Gastro-esophageal reflux disease without esophagitis; Z85.828 Personal history of other malignant neoplasm of skin; E03.9 Hypothyroidism, unspecified; M81.0 Age-related osteoporosis without current pathological fracture; G47.33 Obstructive sleep apnea (adult) (pediatric); Z91.19 Patient's noncompliance with other medical treatment and regimen; I49.5 Sick sinus syndrome; Z66 Do not resuscitate; Z51.5 Encounter for palliative care; I46.9 Cardiac arrest, cause unspecified; I95.9 Hypotension, unspecified
CPT/HCPCS: 36415; 36600; 51702; 71045; 71275; 80051; 80053; 81003; 82330; 82550; 82803; 82805; 83605; 83735; 83880; 84100; 84145; 84484; 85025; 85378; 86140; 86403; 87040; 87641; 93005; 94640; 94660; 94664; 96116; 96365; 96372; 96375; 99214; 99291; C9113; J0743; J1650; J1940; J1956; J2060; J2270; J3370; J7626; Q9967